=== PATIENT | female | born 1950 | race Caucasian/White ===

== ENCOUNTER 2025-03-09 17:41 | Inpatient (IN) | payer MEDICARE, SELFPAY ==
--- OUTSIDE RECORDS SUMMARY | 2025-03-07 15:40 | XMS_ITS | Encounter Summary ---
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 Designer Name Role Phone Verenice Smith MD Primary Care Provider [phone] Reason for Visit * Reason Comments Altered Mental Status * Auth/Cert (Routine) Specialty Diagnoses / Procedures Referred By Ford t Referred To Contact Diagnoses altered mental status Referral ID Status Reason Start Date Expiration Date Visits Re quested Visits Authorized [id number] [phone] Encounter Details Date Type Department Care Team (Latest Contact Info) Description 03/07/2025 3:40 PM EDT - 03/09/2025 4:41 PM EDT Hospital Encounter [facility] Emergency Department [address] [place] [phone] Tori France DO [address] [place] [address] [phone] Cm Gonzalez MD [address] [place] [address] [phone] Tacho Stout MD [address] [place] [address] [phone] Jose Francisco Worthington MD [address] [place] [address] [phone] Gisela Lozano MD [address] [place] [phone] Discharge Disposition: Psychiatric Hospital (INPT Psych facility/unit) (65) Social History Tobacco Use Types Packs/Day Years Used Date Smoking Tobacco: Never Assessed Comments No Sex and Gender Information Value Date Recorded Sex Assigned at Female 03/07/2025 5:21 PM EDT Legal Sex Female 3:38 PM EDT Gender Identity Not on file Sexual Orientation Not on file documented as of this encounter Last Filed Vital Signs Vital Sign Reading Time Taken Comments Blood Pressure 160/80 03/09/2025 10:24 AM EDT Pulse 69 03/09/2025 10:24 AM EDT Temperature 36.6 C (97.9 F) 03/09/2025 10:24 AM EDT Respiratory Rate 18 03/09/2025 10:24 AM EDT Oxygen Saturation 96% 03/09/2025 10:24 AM EDT Inhaled Oxygen Concentration - - Weight 63.5 kg (140 lb) 03/07/2025 3:43 PM EDT Height 160 cm (5' 3 ) 03/07/2025 3:43 PM EDT Body Mass Index 24.8 03/07/2025 3:43 PM EDT documented in this encounter Medications at Time of Discharge amLODIPine (NORVASC) 5 mg tablet Take 5 mg by mouth once a day. busPIRone (BUSPAR) 15 mg tablet Take 30 mg by mouth 2 times a day. colestipoL (COLESTID) 1 gram tablet Take 1 g by mouth once a day. dicyclomine (BENTYL) 20 mg tablet Take 20 mg by mouth 2 times a day. omeprazole (PriLOSEC) 20 mg capsule Take 20 mg by mouth once a day. propranoloL (INDERAL) 60 mg tablet Take 60 mg by mouth once a day. risperiDONE (RisperDAL) 0.5 mg tablet Take 0.5 mg by mouth every 12 hours. documented as of this encounter Progress Notes * Tacho Stout MD - 03/08/2025 7:28 AM EDT ED Observation Note Service Date: 03/08/2025 Brief HPI and ED Course Please see the initial ED HPI for further details. Briefly, patient is a 74 y.o. female who presented to the Emergency Department for confusion in the setting of underlying dementia. Patient was evaluated by primary team, medically cleared, placed in ED observation for capacity evaluation by psychiatry and likely subsequent case management assessment. Patient was monitored in the ED observation unit overnight. There were no significant events. On evaluation this morning, patient is resting comfortably, denies acute concerns. Patient reports that she suffers from chronic abdominal pain, for which she has been following with gastroenterology, no acute change. No fevers or chills. No chest pain or shortness of breath. No additional acute concerns. Relevant review of systems as noted in HPI Physical Examination Vital sign: BP (!) 172/78 (BP Location: Right arm, Patient Position: Sitting) Pulse 73 Temp 36.8 ??C (98.3 ??F) (Oral) Resp 16 Ht 1.6 m (5' 3 ) Wt 63.5 kg (140 lb) SpO2 96% BMI 24.80 kg/m?? Constitutional: In no acute distress HEENT: Normocephalic, atraumatic, Extraocular muscles intact Resp/Chest: Normal work of breathing Cardiovascular: Warm and well-perfused Abd: Nondistended Musculoskeletal: No deformity or edema Skin: Warm and dry Neuro: Alert and interactive. Moving all extremities. Psych: Calm and cooperative Medical Decision Making: Patient in observation for confusion, plan for psychiatry/case management evaluation for possible placement. Reviewed patient's labs and ED course. Labs reviewed and reassuring. Overall presentation most consistent with progressive dementia. Low suspicion for metabolic derangement or primary HANDBAG STITCHER process. Added on TSH and will await urinalysis results. Final disposition pending psychiatry recommendations. TSH within normal limits. Urinalysis less consistent with UTI. Psychiatry recommending addition of CT head. Patient did require olanzapine ODT while in the ED due to increasing agitation/confusion. CT head with no acute process. At this time, patient continues to be medically cleared. Updated psychiatry, who is recommending jas-psych bed search. Signed out to oncoming provider at change of shift in stable condition. ED Course as of 03/08/25 1616 WedMar 07, 2025 2314 74 Y O F brought in for confusion by level vial grinder. Was dricing from [employer] [SV] [facility] Mar 08, 2025 1252 Patient noted to be somewhat agitated, ordered for olanzapine ODT [DS] [address] head [DS] 1354 Discussed with psychiatry, who is recommending patient does not have decisional capacity, planfor inpatient [facility] psych placement following head CT [DS] 1515 [facility] psych bed search [SV] 1524 CT Head WO Contrast IMPRESSION: 1. No acute intracranial abnormality. 2. Volume loss. 3. Opacification of left sphenoid sinus, probably chronic inflammatory in etiology. [DS] ED Course User Index [DS] Tacho Stout MD [SV] Tori France DO If discharged, discharge day management greater than 30 minutes? Yes documented in this encounter Miscellaneous Notes * ED Continuation of Care - Jose Francisco Worthington MD - 03/09/2025 12:43 AM EDT ED Continuation of Care 03/09/25 12:43 AM Sign out from Dr. Tori France, Assessment and Plan: Noted to be agitated at around 12:45 AM, not responding to verbal redirection,trying to walk out of the department. Quite confused, does not acknowledge that she is in the hospital. Unable to redirect verbally, and disrupting the operations of the emergency department. Given IM olanzapine for patient and staff safety. Critical Care: Critical care time (minutes): 33 Critical care time exclusive of teaching time, separately billable procedures, and treating other patients Patient critically ill with the following condition(s): Agitation requiring IM medications Critical care was time spent personally by me on the following activities: Development of treatmentplan, discussions with consultants, discussions with other provider, documenting the case, medical decision making, obtaining history from patient or surrogate, ordering/performing treatments/interventions, ordering and review of lab/imaging studies, pulse oximetry, re-evaluation of patient's condition and review of old charts Date of Service: 03/09/2025 12:44 AM ED Course as of 03/09/25 004WedMar 07, 2025 2314 74 Y O F brought in for confusion by level vial grinder. Was dricing from [facility] [SV] [facility] Mar 08, 2025 1252 Patient noted to be somewhat agitated, ordered for olanzapine ODT [DS] [address] head [DS] 1354 Discussed with psychiatry, who is recommending patient does not have decisional capacity, planfor inpatient [facility] psych placement following head CT [DS] 1515 [facility] bed search [SV] 1524 CT Head WO Contrast IMPRESSION: 1. No acute intracranial abnormality. 2. Volume loss. 3. Opacification of left sphenoid sinus, probably chronic inflammatory in etiology. [DS] ED Course User Index [DS] Tacho Stout MD [SV] Tori France DO Nacny Mendozaou : 1950 CSN: [id number] documented in this encounter Plan of Treatment Not on file documented as of this encounter Procedures * Due to [place] [employer] [place] law, this organization might not be sharing negative HIV tests. Procedure Name Priority Date/Time Associated Diagnosis Comments CT HEAD WO CONTRAST STAT 03/08/2025 2 :28 PM EDT URINALYSIS W/REFLEX TO MICROSCOPIC & CULTURE Routine 03/08/2025 9:56 AM EDT MICROSCOPIC URINALYSIS ONLY Routine 03/08/2025 9:56 AM EDT UA/CULTURE REFLEX Routine 03/08/2025 9:5 6 AM EDT THYROID CASCDE - HH STAT Add-on 03/07/2025 8 :46 PM EDT BASIC METABOLIC PANEL STAT 03/07/2025 8:46 PM EDT CBC AUTO DIFFERENTIAL STAT 03/07/2025 6:51 PM EDT documented in this encounter Results * Due to [place] [employer] [place] law, this organization might not be sharing negative HIV tests. * CT Head WO Contrast (03/08/2025 2:28 PM EDT) Anatomical Region Laterality Modality Head and Neck Computed Tomogra phy 03/08/2025 2:36 PM EDT Impressions 03/08/2025 2:39 PM EDT 1. No acute intracranial abnormality. 2. Volume loss. 3. Opacification of left sphenoid sinus, probably chronic inflammatory in etiology. If this radiology report contains a blank impression section, it is an incomplete radiology report. Please contact the interpreting radiologist or applicable radiology division as soon as possible to obtain the completed interpretation. Workstation ID: [id number] Up-to-date CT equipment and radiation dose reduction techniques were employed. CTDIvol: 41.8 mGy. DLP: 710 mGy-cm. Narrative 03/08/2025 2:39 PM EDT EXAMINATION: CT of head without contrast TECHNIQUE: CT of the head performed without intravenous contrast. Multiplanar reformats created. CLINICAL INFORMATION: Mental status change, unknown cause FINDINGS: No acute intracranial hemorrhage, significant mass effect or midline shift seen. No evidence for acute large vascular territorial infarction. The brain parenchyma shows normal attenuation characteristics. Evidence of mild volume loss. No hydrocephalus. No acute bony abnormality. Opacification of left sphenoid sinus, most likely chronic inflammatory in etiology. Resulting Agency Comment [id number] Procedure Note Brennon Concepcion MD - 03/08/2025 EXAMINATION: CT of head without contrast TECHNIQUE: CT of the head performed without intravenous contrast. Multiplanarreformats created. CLINICAL INFORMATION: Mental status change, unknown cause FINDINGS: No acute intracranial hemorrhage, significant mass effect or midline shiftseen. No evidence for acute large vascular territorial infarction. The brain parenchyma shows normal attenuation characteristics. Evidenceof mild volume loss. No hydrocephalus. No acute bony abnormality. Opacification of left sphenoid sinus, most likely chronic inflammatory inetiology. IMPRESSION: 1. No acute intracranial abnormality. 2. Volume loss. 3. Opacification of left sphenoid sinus, probably chronic inflammatory inetiology. If this radiology report contains a blank impression section, it is anincomplete radiology report. Please contact the interpreting radiologistor applicable radiology division as soon as possible to obtain thecompleted interpretation. Workstation ID: [id number] Up-to-date CT equipment and radiation dose reduction techniques wereemployed. CTDIvol: 41.8 mGy. DLP: 710 mGy-cm. us Tacho Stout MD IMG CT PROCEDURES Final Result * (ABNORMAL) Microscopic Urinalysis Only (03/08/2025 9:56 AM EDT) RBC, Urine 0-2 None Seen, 0-2 /HPF 03/08/2025 10:39 AM EDT [facility] WBC, Urine 0-2 None Seen, 0-2 /HPF 03/08/2025 10:39 AM EDT [facility] Squamous Epithelial Cells, Urine None Seen /HPF 03/08/2025 10:39 AM EDT [facility] Bacteria, Urine Occasional (A) None Seen /HPF 03/08/2025 10:39 AM EDT [facility] Urine Urine specimen collection, clean catch / Unknown Non-Blood Collection / Unknown 03/08/2025 9:56 AM EDT 03/08/2025 10:13 AM EDT Tori France DO LAB URINE ORDERABLES Final Result [facility] [address] [place] [address] [address] [place] [address], [place] [phone] * (ABNORMAL) Urinalysis W/Reflex to Microscopic & Culture (03/08/2025 9:56 AM EDT) Color, Urine Yellow Yellow 03/08/2025 10:13 AM EDT [facility] Clarity, Urine Clear Clear 03/08/2025 10:13 AM EDT [facility] Specific [place], Urine 1.015 1.005 - 1.030 03/08/2025 10:13 AM EDT [facility] pH, Urine 6.5 5.0 - 8.0 03/08/2025 10:13 AM EDT [facility] Protein, Urine Negative Negative mg/dL 03/08/2025 10:13 AM EDT [facility] Glucose, Urine Negative Negative mg/dL 03/08/2025 10:13 AM EDT [facility] Ketones, Urine Negative Negative mg/dL 03/08/2025 10:13 AM EDT [facility] Bilirubin, Urine Negative Negative 03/08/2025 10:13 AM EDT [facility] Blood, Urine Small(A) Negative 03/08/2025 10:13 AM EDT [facility] Nitrite, Urine Negative Negative 03/08/2025 10:13 AM EDT [facility] Urobilinogen, Urine 0.2 0.2 - 1.0 E.U./dL 03/08/2025 10:13 AM EDT [facility] Leukocyte Esterase, Urine Trace(A) Negative 03/08/2025 10:13 AM EDT [facility] Urine Urine specimen collection, clean catch / Unknown Non-Blood Collection / Unknown 03/08/2025 9:56 AM EDT 03/08/2025 9:59 AM EDT Narrative [facility] - 03/08/2025 10:13 AM EDT Some urinalysis results will not meet the criteria for reflex urine culture although certain urine values may be abnormal. Additional testing can be ordered by the provider if clinically warranted. Tori Vyscaitie DO LAB URINE ORDERABLES Final Result [facility] [address] [place] [address], * Thyroid [place] [facility] [place] only (03/07/2025 8:46 PM EDT) TSH 3.930 0.270 - 4.200 uIU/mL 03/08/2025 11:43 AM EDT [facility] Comment:EUTHYROID; CLINICAL CORRELATION IS RECOMMENDED Blood Structure of peripheral vein / Unknown Venipuncture / Unknown 03/07/2025 8:46 PM EDT 03/07/2025 8:48 PM EDT us Tacho Stout MD LAB BLOOD ORDERABLES Final Resu lt [facility] [address] [place] [address], [place] [phone] * (ABNORMAL) Basic Metabolic Panel (03/07/2025 8:46 PM EDT) NA 138 136 - 145 mmol/L 03/07/2025 9:09 PM EDT [facility] K 3.8 3.5 - 5.1 mmol/L 03/07/2025 9:09 PM EDT [facility] Cl 105 98 - 109 mmol/L 03/07/2025 9:09 PM EDT [facility] CO2 21(L) 22 - 32 mmol/L 03/07/2025 9:09 PM EDT [facility] BUN 17 8 - 23 mg/dL 03/07/2025 9:09 PM EDT [facility] Creatinine 1.08 0.50 - 1.12 mg/dL 03/07/2025 9:09 PM EDT [facility] Glucose 119(H) 60 - 99 mg/dL 03/07/2025 9:09 PM EDT [facility] Calcium 9.5 8.4 - 10.4 mg/dL 03/07/2025 9:09 PM EDT [facility] Anion Gap 16 >=0 03/07/2025 9:09 PM EDT [facility] eGFR 54(L) >=60 mL/min/1. 73m2 03/07/2025 9:09 PM EDT [facility] Comment:The estimated glomer ular filtration rate (eGFR) is calculated using a new formula developed by the NKF-ASN task force to eliminate race-based correction factors. The new formula uses serum/plasma creatinine, age, and gender to determine eGFR. A value below 60mls/min might indicate kidney disease and will be flagged. For additional information, see Mckeon et al, Am J Kidney Dis. 2021;79(2):268- 288, A Unifying Approach for GFR estimation: Recommendations of the NKF-ASN Task Force on Reassessing the Inclusion of Race in Diagnosing Kidney Disease . Blood Structure of peripheral vein / Unknown Venipuncture / Unknown 03/07/2025 8:46 PM EDT 03/07/2025 8:48 PM EDT us Tori Vysetty DO LAB BLOOD ORDERABLES Final Result [facility] [address] [place] [address], [place] [phone] * CBC Auto Differential (03/07/2025 6:51 PM EDT) WBC 7.0 4.8 - 10.8 10*3/uL 03/07/2025 6:58 PM EDT [facility] RBC 4.78 4.20 - 5.40 10*6/uL 03/07/2025 6:58 PM EDT [facility] Hemoglobin 14.2 11.7 - 15.5 g/dL 03/07/2025 6:58 PM EDT [facility] Hematocrit 39.6 35.7 - 45.8 % 03/07/2025 6:58 PM EDT [facility] MCV 82.8 81.0 - 99.0 fL 03/07/2025 6:58 PM EDT [facility] MCH 29.7 26.0 - 34.0 pg 03/07/2025 6:58 PM EDT [facility] MCHC 35.9 31.0 - 36.0 g/dL 03/07/2025 6:58 PM EDT [facility] RDW 12.8 12.0 - 15.0 % 03/07/2025 6:58 PM EDT [facility] RDW Standard Deviation 38.9 36.4 - 46.3 fL 03/07/2025 6:58 PM EDT [facility] Platelets 193 140 - 440 10*3/uL 03/07/2025 6:58 PM EDT [facility] MPV 10.2 9.4 - 12.3 fL 03/07/2025 6:58 PM EDT [facility] Neutrophil % 55.6 50.0 - 75.0 % 03/07/2025 6:58 PM EDT [facility] Immature Grans % 0.3 0.0 - 0.9 % 03/07/2025 6:58 PM EDT [facility] Lymphocyte % 32.1 20.0 - 44.0 % 03/07/2025 6:58 PM EDT [facility] Monocyte % 7.0 0.0 - 14.0 % 03/07/2025 6:58 PM EDT [facility] Eosinophil % 3.6 0.0 - 5.0 % 03/07/2025 6:58 PM EDT [facility] Basophil % 1.4 0.0 - 2.0 % 03/07/2025 6:58 PM EDT [facility] Neutrophil # 3.89 1.80 - 7.70 10*3/uL 03/07/2025 6:58 PM EDT [facility] Immature Grans # <0.03 0.00 - 0.03 10*3/uL 03/07/2025 6:58 PM EDT [facility] Lymphocyte # 2.30 1.00 - 4.75 10*3/uL 03/07/2025 6:58 PM EDT [facility] Monocyte # 0.50 0.00 - 0.60 10*3/uL 03/07/2025 6:58 PM EDT [facility] Eosinophil # 0.30 0.00 - 0.80 10*3/uL 03/07/2025 6:58 PM EDT [facility] Basophil # 0.10 0.00 - 0.20 10*3/uL 03/07/2025 6:58 PM EDT [facility] nRBC % 0.0 0 - 0 /100 WBCs 03/07/2025 6:58 PM EDT [facility] nRBC # <0.01 0.00 - 0.13 10*3/uL 03/07/2025 6:58 PM EDT [facility] Blood Structure of peripheral vein / Unknown Venipuncture / Unknown 03/07/2025 6:51 PM EDT 03/07/2025 6:54 PM EDT Tori Vysetty DO LAB BLOOD ORDERABLES Final Result [facility] [address] [place] [address], [place] [phone] documented in this encounter Visit Diagnoses Not on filedocumented in this encounter Administered Medications Active Administered Medications - up to 3 most recent administrations Medication Order MAR Action Action Date Dose Rate Site amLODIPine (NORVASC) tablet 5 mg 5 mg, oral, Daily, First dose on Wed03/08/25 at 0900, Until Discontinued, Hold for SBP less than 100 mmHg. Given 03/09/2025 9:53 AM EDT 5 mg Given 03/08/2025 10:06 AM EDT 5 mg busPIRone (BUSPAR) tablet 15 mg 15 mg, oral, 2 times daily, First dose on Wed03/08/25 at 0900, Until Discontinued Given 03/09/2025 9:53 AM EDT 15 mg Given 03/08/2025 5:14 PM EDT 15 mg Given 03/08/2025 10:06 AM EDT 15 mg risperiDONE (RisperDAL M-TAB) disintegrating tablet 0.5 mg 0.5 mg, oral, Nightly, First dose on Wed03/08/25 at 0000, Until Discontinued Given 03/08/2025 10:27 PM EDT 0.5 mg Given 03/08/2025 1:01 AM EDT 0.5 mg Inactive Administered Medications - up to 3 most recent administrations Medication Order MAR Action Action Date Dose Rate Site OLANZapine (ZyPREXA Zydis) disintegrating tablet 5 mg 5 mg, oral, Once, On Teresa 03/08/25 at 1300, 1 dose Given 03/08/2025 12:59 PM EDT 5 mg OLANZapine (ZyPREXA) 10 mg injection Pyxis Override Pull Starting on Wed03/09/25 at 0043, 1 dose, Until Wed03/09/25 at 0045, Created by cabinet override Reconstitute with 2.1 mL of sterile water for injection. Concentration = 5 mg/mL. Given 03/09/2025 12:45 AM EDT 5 mg Left Deltoid OLANZapine (ZyPREXA) injection 5 mg 5 mg, intramuscular, Once, On Wed03/07/25 at 1630, 1 dose, Reconstitute with 2.1 mL of sterile water for injection. Concentration = 5 mg/mL. Given 03/07/2025 4:26 PM EDT 5 mg Right Deltoid documented in this encounter Active and Recently Administered Medications Times are shown in EDT. Scheduled Medication Order 03/07/2025 03/08/2025 03/09/2025 amLODIPine (NORVASC) tablet 5 mg 5 mg, oral, Daily, First dose on Wed03/08/25 at 0900, Until Discontinued, Hold for SBP less than 100 mmHg. 1006 (Given - Provider: Collette Yusuf RN) 0953 (Given - Provider: Sandro Rosales RN) busPIRone (BUSPAR) tablet 15 mg 15 mg, oral, 2 times daily, First dose on Wed03/08/25 at 0900, Until Discontinued 1006 (Given - Provider: Collette Yusuf RN)1714 (Given - Provider: Barbie Mills RN) 0953 (Given - Provider: Sandro Rosales RN)1700 (Due) OLANZapine (ZyPREXA Zydis) disintegrating tablet 5 mg (COMPLETED) 5 mg, oral, Once, On Wed03/08/25 at 1300, 1 dose 1259 (Given - Provider: Collette Yusuf RN) OLANZapine (ZyPREXA) injection 5 mg (COMPLETED) 5 mg, intramuscular, Once, On Wed03/07/25 at 1630, 1 dose, Reconstitute with 2.1 mL of sterile water for injection. Concentration = 5 mg/mL. 1626 (Given - Provider: Barbie Sahu RN) OLANZapine (ZyPREXA) injection 5 mg 5 mg, intramuscular, Once, On Wed03/09/25 at 0045, 1 dose, Reconstitute with 2.1 mL of Sterile Water for injection. Concentration = 5 mg/mL. For IV administration: may be given IV push at a rate of 5 mg/minute. 0045 (Not Given - Provider: Paulette Moreno RN - Reason: See Provider Order) risperiDONE (RisperDAL M-TAB) disintegrating tablet 0.5 mg 0.5 mg, oral, Nightly, First dose on Teresa 03/08/25 at 0000, Until Discontinued 0101 (Given - Provider: Elder Thorne RN)2227 (Given - Provider: Paulette Moreno RN) 2100 (Due) No Frequency Medication Order 03/07/2025 03/08/2025 03/09/2025 OLANZapine (ZyPREXA) 10 mg injection Pyxis Override Pull (COMPLETED) Starting on Wed03/09/25 at 0043, 1 dose, Until Wed03/09/25 at 0045, Created by cabinet override Reconstitute with 2.1 mL of sterile water for injection. Concentration = 5 mg/mL. 0045 (Given - Provid er: Paulette Moreno RN - Comment: given as overide for patient behavior trying to leave) documented in this encounter Care Teams Solar [employer] Consultant And Designer Relationship Specialty Start Date End Date Verenice Smith MD [address] [place] [address] PCP - General Geriatric Medicine 03/07/25 documented as of this encounter
--- NOTE | 2025-03-09 | ECG_ITS ---
Test Reason : tachycardia Blood Pressure : */* mmHG Vent. Rate : 103 BPM Atrial Rate : 103 BPM P-R Int : 174 ms QRS Dur : 72 ms QT Int : 332 ms P-R-T Axes : 68 28 64 degrees QTcB Int : 434 ms Sinus tachycardia with frequent Premature ventricular complexes Possible Left atrial enlargement Septal infarct , age undetermined Abnormal ECG No previous ECGs available Referred By: Kianna Walls Electronically Signed By: Xavier Morton
--- NOTE | ~2025-03-09 | XR_ITS ---
EXAMINATION: XR CHEST CLINICAL INFORMATION: sob cough COMPARISON: 04/04/2025 TECHNIQUE: PA view of the chest was obtained. FINDINGS: The cardiac, hilar, and mediastinal contours are normal. The lungs are clear bilaterally. No pneumothorax or effusion. No focal osseous or soft tissue abnormality. XR/XR chest 1V IMPRESSION: No active pulmonary disease. Electronically signed by: Shadi Gu MD 04/10/2025 11:00 AM EDT
--- NOTE | ~2025-03-09 | XR_ITS ---
CLINICAL HISTORY: cough, crackles in chest 1 view chest x-ray Comparison: None provided Findings: Mild left lower lobe atelectasis. No significant pleural effusion or pneumothorax. Normal size heart. No acute fracture. IMPRESSION: Mild left lower lobe atelectasis. This document has been electronically signed by: Carloz Rosa MD on 04/04/2025 19:10:05
--- OUTSIDE RECORDS SUMMARY | 2025-03-09 17:51 | XMS_ITS | Encounter Summary ---
Author Organization [facility] Address [address] [place] [address] Care Team Providers Care Data Network Architect Name Role Phone Verenice Smith MD Primary Care Provider [phone] Kristian Evans MD Unavailable [phone] Tacho Posada MD Unavailable [phone] Verenice Smith MD Unavailable [phone] Reason for Referral * Physical Therapy (Routine) - Closed Specialty Diagnoses / Procedures Referred By Ford jamison Referred To Contact Physical Therapy Diagnoses Benign paroxysmal positional vertigo due to bilateral vestibular disorder Verenice Smith MD [address] [place] [address] Phone: tel: fax: Referral ID Status Reason Start Date Expiration Date V isits Requested Visits Authorized [id number] Closed Specialty Services Required 10/01/2021 03/30/2022 1 1 Encounter Details Date Type Department Care Team (Late st Contact Info) Description 10/01/2021 Orders Only [facility] Department of Geriatrics [address] [place] [address] Verenice Smith MD [address] [place] [address] Benign paroxysmal positional vertigo due to bilateral vestibular disorder (Primary Dx) Social History Tobacco Use Types Packs/Day Years Used Date Smoking Tobacco: Former Smokeless Tobacco: Never Alcohol Use Standard Drinks/Week Comments Not Currently 0 (1 standard drink = 0.6 oz pur e alcohol) PHQ-2 Answer Date Recorded PHQ-2 Score 0 06/27/2021 Comments Unknown Sex and Gender Information Value Date Recorded Sex Assigned at Female 10/17/2020 11:25 AM EST Legal Sex Female 10:12 AM EST Gender Identity Female 10/17/2020 11:24 AM EST Sexual Orientation Straight 10/17/2020 11 :24 AM EST documented as of this encounter Plan of Treatment Upcoming Encounters Date Type Department Care Team (Late st Contact Info) Description 03/19/2025 3:30 PM EDT Office Visit [facility] Department of Geriatrics [address] [place] [address] [address] [place] [address] Verenice Smith MD [address] [place] [address] Scheduled Referrals Name Type Priority Associated Diagnoses Order Schedule Ambulatory referral to Physical Therapy Outpatient Referral Routine Benign paroxysmal positional vertigo due to bilateral vestibular disorder Ordered: 10/01/2021 documented as of this encounter Visit Diagnoses Diagnosis Benign paroxysmal positional vertigo due to bilateral vestibular disorder- Primary documented in this encounter Additional Health Concerns Infection Onset Date Last Indicated Resolved Time (Rule out) C. difficile 07/14/2023 07/14/2023 12/0 08/2022 10:08 PM EST documented as of this encounter Care Teams Data Network Architect Relationship Specialty Start Date End Date Verenice Smith MD [address] [place] [address] PCP - General Geriatric Medicine 07/10/20 Verenice Smith MD [address] [place] [id number] PCP - Insurance Payer PCP 06/30/23 Kristian Evans MD [address] [place] [address] [place] [address] Urogynecology 06/27/21 Tacho Posada MD [address] [place] [id number] Otolaryngology 06/27/21 documented as of this encounter
--- OUTSIDE RECORDS SUMMARY | 2025-03-09 17:52 | XMS_ITS | Clinical Summary ---
Author Organization [facility] Address [address] [place] [address] Care Team Providers Care Air Traffic Instructor Name Role Phone Verenice Smith MD Primary Care Provider [phone] Karl Lowe MD Unavailable [phone] Allergies Active Allergy Reactions Criticality Noted Date Comments Salicylic Acid-Sulfur Rash/Dermatitis Low 5 Medications sodium-potassium -magnesium sulfates (Suprep Bowel Prep Kit) 17.5-3.13-1.6 GM/177ML Solution solutionIndicati ons:Gastroesopha geal reflux disease, unspecified whether esophagitis present,Generali zed abdominal pain,Change in bowel habits Follow directions provided by physician's office. 354 mL 5 Active amLODIPine (NORVASC) 5 MG tablet Take 5 mg by mouth daily. Active busPIRone (BUSPAR) 30 MG tablet Take 10 mg by mouth 2 (two) times a day. Active Calcium Carb-Cholecalcif alpa (CALCIUM CARBONATE-VITAMI N D3 PO) Take by mouth. Activ e dicyclomine (BENTYL) 20 MG tablet Take 20 mg by mouth 2 times a day. Active meclizine (ANTIVERT) 25 MG tablet Take 25 mg by mouth 3 (three) times a day as needed for dizziness. Active cyanocobalamin (VITAMIN B-12) 250 MCG tablet Take 250 mcg by mouth daily. Active mirabegron (MYRBETRIQ) 25 mg ER tablet Take 25 mg by mouth daily. Active OMEprazole (PriLOSEC) 20 MG capsule Take 20 mg by mouth every morning before breakfast. Active ondansetron (ZOFRAN) 4 MG tablet Take 4 mg by mouth 3 times daily (every 8 hours) as needed for nausea or vomiting. Active propranolol (INDERAL) 60 MG tablet Take 60 mg by mouth 3 (three) times a day. Active QUEtiapine (SEROquel) 25 MG tablet Take 25 mg by mouth nightly. Active traZODone (DESYREL) 100 MG tablet Take 100 mg by mouth nightly. Active Active Problems No known active problems Encounters Date Type Department Care Team Description 03/08/2025 Telephone [facility] [address] [place] [address] Shelly Zeng 02/15/2025 Resource Coordination [facility] [address] [place] [address] Shelly Zeng 02/09/2025 12:30 PM EDT - 02/09/2025 1:15 PM EDT Surgery [facility] Endoscopy [address] [address] Karl Lowe MD COLONOSCOPY 02/09/2025 12:28 PM EDT Anesthesia Event [address] [phone] Mikel Zacarias CRNA 02/09/2025 11:23 AM EDT - 02/09/2025 11:59 PM EDT Hospital Encounter [address] [phone] Karl Lowe MD Discharge Disposition: Home or Self Care 02/09/2025 Scanned Document [facility] ENDOSCOPY [address] Karl Lowe MD 01/04/2025 Telephone [facility] [address] [place] [address] Aishwarya Shanks MA 12/18/2024 Transcribe Orders [facility] [address] [place] [address] Unknown Abdominal pain, chronic, right lower quadrant (Primary Dx) 12/14/2024 1:00 PM EDT Consult [facility] [address] [place] [address] Karl Lowe MD Gastroesophageal reflux disease, unspecified whether esophagitis present (Primary Dx); Generalized abdominal pain; Abdominal pain increased with position change; Change in bowel habits 12/14/2024 Orders Only [facility] [address] [place] [address] Karl Lowe MD from Last 3 Months Social History Tobacco Use Types Packs/Day Years Used Date Smoking Tobacco: Former Cigarettes 0.5 25 S tarted: 1970 Smokeless Tobacco: Never Tobacco Cessation:Counseling Given: Not Answered Alcohol Use Standard Drinks/Week Comments Not Currently 0 (1 standard drink = 0.6 oz pure alcohol) none in 30 years - goes to AA Comments Unknown Sex and Gender Information Value Date Recorded Sex Assigned at Not on file Legal Sex Female 5:23 PM EDT Gender Identity Not on file Sexual Orientation Not on file Last Filed Vital Signs Vital Sign Reading Time Taken Comments Blood Pressure 131/70 02/09/2025 1:46 PM EDT Pulse 62 02/09/2025 1:46 PM EDT Temperature 36.7 C (98 F) 02/09/2025 11:36 AM EDT Respiratory Rate 18 02/09/2025 1:46 PM EDT Oxygen Saturation 98% 02/09/2025 1:46 PM EDT Inhaled Oxygen Concentration - - Weight 85.7 kg (188 lb 14.4 oz) 025 11:36 AM EDT Height 161.5 cm (5' 3.58 ) 02/09/2025 1 1:36 AM EDT Body Mass Index 32.85 02/09/2025 11:36 AM EDT Plan of Treatment Health Maintenance Due Date Last Done Comments Hepatitis C Virus Screening 1950 DTaP/Tdap/Td Vaccines (1 - Tdap) 1969 Mammogram 1990 Pneumococcal Vaccines 50+ (1 of 1 - PCV) 2000 Zoster (Shingles) Vaccine (1 of 2) 2000 DXA Bone Density (Females,Ages 65 and older) 2015 COVID-19 Vaccine ( season) 2024 05/29/2024, 06/28/2023, 06/01/2022, Additional history exists Influenza Vaccine 03/16/2025 05/29/2024, , 05/16/2021, Additional history exists RSV Vaccine 60 years and older and Patients (1 - 1-dose 75+ series) 2025 Colonoscopy 02/10/2028 02/09/2025, 02/09/2025 Hepatitis B Vaccines Aged Out No long er eligible based on patient's age to complete this topic Goals Goal Patient Goal Type Associated Problems Recent Progress Patient-Stated? Author PT LTG 5 Physical Therapy Not on track( 022 12:19 PM EST) No Willem Roth, PT Note: Senior Living Goal: Improve Dynamic Visual Acuity by 1 line (2 or better) in 12 weeks ongoing PT LTG 1 Physical Therapy No Willem Roth, PT Note: Senior Living Goal: She will identify TREJO triggers in order to decrease TREJO frequency, intensity, or duration in 12 weeks Procedures Procedure Name Priority Date/Time Associated Diagnosis Comments HX GASTROENTEROLOGY COLONOSCOPY-SCAN 02/09/2025 12:43 PM EDT HX GASTROENTEROLOGY UPPER ENDOSCOPY-SCAN 02/09/2025 12:29 PM EDT ENDOSCOPY UPPER 02/09/2025 12:28 PM EDT Gastroesophageal reflux disease, unspecified whether esophagitis present Generalized abdominal pain Change in bowel habits COLONOSCOPY 02/09/2025 12:28 PM EDT Gastroesophageal reflux disease, unspecified whether esophagitis present Generalized abdominal pain Change in bowel habits PATHOLOGY REPORT 02/09/2025 12:0 0 AM EDT GIARDIA ANTIGEN, EIA, STOOL Routine 01/15/2025 8:54 AM EDT Gastroesophageal reflux disease, unspecified whether esophagitis present Generalized abdominal pain Change in bowel habits PANCREATIC ELASTASE-1, STOOL Routine 01/15/2025 8:54 AM EDT Gastroesophageal reflux disease, unspecified whether esophagitis present Generalized abdominal pain Change in bowel habits OVA AND PARASITES Routine 01/15/2025 8:5 4 AM EDT Gastroesophageal reflux disease, unspecified whether esophagitis present Generalized abdominal pain Change in bowel habits TSH REFLEX TO FREE T4 Routine 01/01/2025 10:38 AM EDT Gastroesophageal reflux disease, unspecified whether esophagitis present Generalized abdominal pain Change in bowel habits COMPREHENSIVE METABOLIC PANEL Routine 01/01/2025 10:38 AM EDT Gastroesophageal reflux disease, unspecified whether esophagitis present Generalized abdominal pain Change in bowel habits COMPLETE BLOOD COUNT, WITH DIFFERENTIAL Routine 01/01/2025 10:38 AM EDT Gastroesophageal reflux disease, unspecified whether esophagitis present Generalized abdominal pain Change in bowel habits from Last 3 Months Results * HX GASTROENTEROLOGY COLONOSCOPY-SCAN (02/09/2025 12:43 PM EDT) us Karl Lowe MD HX AMB PROCEDURES Final Res ult * HX GASTROENTEROLOGY UPPER ENDOSCOPY-SCAN (02/09/2025 12:29 PM EDT) us Karl Lowe MD HX AMB PROCEDURES Final Res ult * Pathology (02/09/2025 12:00 AM EDT) us Karl Lowe MD PATHOLOGY/CYTOLOGY ORDERABL ES Final Result * Giardia Antigen, EIA, Stool (01/15/2025 8:54 AM EDT) Giardia Ag, Stl SEE NOTE [facility] [employer] [facility] Comment: GIARDIA AG, EIA, STOOL Micro Number: [id number] Test Status: Final Specimen Source: Stool Specimen Quality: Adequate Giardia Result 1: Not Detected Reference Range: Not Detected NOTE: Due to intermittent shedding, one negative sample does not necessarily rule out the presence of a parasitic infection. 01/15/2025 8:54 AM EDT 01/15/2025 8:55 AM EDT Narrative [facility] - 01/27/2025 9:21 AM EDT SPLIT 01/01/2025 FROM [id number] Karl Lowe MD LAB AMB FLUID/STOOL ORDERAB LES Final Result Performing Organization Address City/[facility]/ZIP Co de Phone Number [facility] [address] [place] [phone] * Pancreatic Elastase-1, Stool (01/15/2025 8:54 AM EDT) Pancreatic Elastase-1, Stool 587 >200 mcg/g [facility], Comment: E-1 mcg/g feces Interpretation <100 Severe exocrine pancreatic insufficiency 100-200 Mild to moderate exocrine pancreatic insufficiency >200 Normal 01/15/2025 8:54 AM EDT 01/15/2025 8:55 AM EDT Narrative [facility] - 01/27/2025 9:21 AM EDT SPLIT 01/01/2025 FROM [id number] Karl Lowe MD LAB AMB FLUID/STOOL ORDERAB LES Final Result Performing Organization Address City/[facility]/ZIP Co de Phone Number [facility], [address] [place] [address] * Ova and Parasites (01/15/2025 8:54 AM EDT) Trichrome (1) SEE NOTE [facility] Comment: OVA AND PARASITES, CONC AND PERM SMEAR Micro Number: [id number] Test Status: Final Specimen Source: Stool Specimen Quality: Adequate CONCENTRATION 1: No ova or parasites seen TRICHROME 1: No ova or parasites seen Routine Ova and Parasite exam may not detect some parasites that occasionally cause diarrheal illness. Cryptosporidium Antigen and/or Cyclospora and Isospora Exam may be ordered to detect these parasites. One negative sample does not necessarily rule out the presence of a parasitic infection. For additional information, please refer to [email or web address]/faq/[email or web address] (This link is being provided for informational/ educational purposes only.) 01/15/2025 8:54 AM EDT 01/15/2025 8:55 AM EDT Narrative [facility] - 01/27/2025 9:21 AM EDT SPLIT 01/01/2025 FROM [id number] us Karl Lowe MD LAB AMB FLUID/STOOL ORDERAB LES Final Result Performing Organization Address [facility] Co de Phone Number [facility] [address] [place] [phone] * TSH Reflex Free T4 (01/01/2025 10:38 AM EDT) Pathologist [facility] TSH reflex Free T4 2.90 0.40 - 4.50 mIU/L [facility] Blood Blood specimen / Unknown 01/01/2025 10:38 AM EDT 01/01/2025 10:40 AM EDT [facility] - 01/01/2025 11:31 PM EDT FASTING:YES COLLECTION KIT GIVEN TO PATIENT. PATIENT ADVISED TO RETURN. FASTING: YES us Karl Lowe MD LAB BLOOD ORDERABLES Final Result Performing Organization Address [facility]/ZIP Co de Phone Number [facility] [address] [place] [phone] * Complete Blood Count, with Differential (01/01/2025 10:38 AM EDT) Pathologist [facility] White Blood Cell Count 5.1 3.8 - 10.8 Thousand/u L [facility] Red Blood Cell Count 4.33 3.80 - 5.10 Million/uL [facility] Hemoglobin 12.9 11.7 - 15.5 g/dL [facility] Hematocrit 38.8 35.0 - 45.0 % [facility] [employer] MCV 89.6 80.0 - 100.0 fL [facility] MCH 29.8 27.0 - 33.0 pg [facility] MCHC 33.2 32.0 - 36.0 g/dL [facility] Comment: For adults, a slight decrease in the calculated MCHC value (in the range of 30 to 32 g/dL) is most likely not clinically significant; however, it should be interpreted with caution in correlation with other red cell parameters and the patient's clinical condition. RDW 13.2 11.0 - 15.0 % [facility] [employer] Platelet Count 191 140 - 400 Thousand/u L [facility] MPV 10.5 7.5 - 12.5 fL [facility] Abs Neutrophils Auto 2,876 1,500 - 7,800 cells/uL [facility] Abs Lymphocytes Auto 1,571 850 - 3,900 cells/uL [facility] Abs Monocytes Auto 403 200 - 950 cells/uL [facility] Abs Eosinophils Auto 189 15 - 500 cells/uL [facility] Abs Basophils Auto 61 0 - 200 cells/uL [facility] Neutrophils Auto 56.4 % Que [facility] Lymphocytes Auto 30.8 % Que [facility] Monocytes Auto 7.9 % [facility] Eosinophils Auto 3.7 % Que [facility] Basophils Auto 1.2 % [facility] Blood Blood specimen / Unknown 01/01/2025 10:38 AM EDT 01/01/2025 10:40 AM EDT Narrative [facility] - 01/01/2025 11:31 PM EDT FASTING:YES COLLECTION KIT GIVEN TO PATIENT. PATIENT ADVISED TO RETURN. FASTING: YES Karl Lowe MD LAB BLOOD ORDERABLES Final Result [facility] [address] [place] [phone] * (ABNORMAL) Comprehensive Metabolic Panel (01/01/2025 10:38 AM EDT) Glucose 107(H) 65 - 99 mg/dL [facility] Comment: Fasting reference interval For someone without known diabetes, a glucose value between 100 and 125 mg/dL is consistent with prediabetes and should be confirmed with a follow-up test. Blood Urea Nitrogen (BUN) 15 7 - 25 mg/dL [facility] Creatinine 1.07(H) 0.60 - 1.00 mg/dL [facility] Creatinine w/ eGFR 55(L) > OR = 60 mL/min/1. 73m2 [facility] BUN/Creatinine Ratio 14 6 - 22 (calc) [facility] Sodium 137 135 - 146 mmol/L [facility] Potassium 4.3 3.5 - 5.3 mmol/L [facility] Chloride 106 98 - 110 mmol/L [facility] CO2 27 20 - 32 mmol/L [facility] Calcium 9.4 8.6 - 10.4 mg/dL [facility] Protein, Total 7.3 6.1 - 8.1 g/dL [facility] Albumin 3.9 3.6 - 5.1 g/dL [facility] Globulin 3.4 1.9 - 3.7 g/dL (calc) [facility] Albumin/Globulin Ratio 1.1 1.0 - 2.5 (calc) [facility] Bilirubin, Total 0.5 0.2 - 1.2 mg/dL [facility] Alkaline Phosphatase 61 37 - 153 U/L [facility] Aspartate Aminotrans (AST) 14 10 - 35 U/L [facility] Alanine Aminotrans (ALT) 9 6 - 29 U/L [facility] Blood Blood specimen / Unknown 01/01/2025 10:38 AM EDT 01/01/2025 10:40 AM EDT Narrative [facility] - 01/01/2025 11:31 PM EDT FASTING:YES COLLECTION KIT GIVEN TO PATIENT. PATIENT ADVISED TO RETURN. FASTING: YES Karl Lowe MD LAB BLOOD ORDERABLES Final Result [facility] [facility] [facility] [address] [place] [phone] from Last 3 Months Insurance Care Teams Air Traffic Instructor Relationship Specialty Start Date End Date Verenice Smith MD PCP - General General Medicine 04/17/21 Karl Lowe MD [address] [place] [address] Gastroenterology 02/21/25
--- OUTSIDE RECORDS SUMMARY | 2025-03-09 17:52 | XMS_ITS ---
Author Name [facility] Organization Unknown Results Test Name/Text Value Interpretation Date Range Source ABSOLUTE MONOCYTE CT. 0.73 10*3/uL Normal 12/12/2024 0.2 - 0.8 [facility] RBC DISTRIBUTION WIDTH 13.3 % Normal 12/12/2024 11.6 - 14.8 [facility] MCHC 33.8 g/dL Normal 12/12/2024 32 - 36 [facility] NEUTROPHIL % 51.4 % Normal 12/12/2024 40 - [address] [facility] [address] 3.49 10*3/uL Normal 12/12/2024 1.4 - 6.3 [facility] HEMATOCRIT 39.0 % Normal 12/12/2024 35 - [address] [facility] [address] 0.2 10*3/uL Normal 12/12/2024 0 - 0.3 [facility] MCV 88.4 fL Normal 12/12/2024 80 - 100 [facility] HEMOGLOBIN 13.2 g/dL Normal 12/12/2024 12 - 16 [facility] MPV 10.3 fL Normal 12/12/2024 9.4 - 12.4 [facility] LYMPHOCYTE % 33.7 % Normal 12/12/2024 20 - 50 [facility] MONOCYTE % 10.7 % Normal 12/12/2024 4 - 12 [facility] RED CELL COUNT 4.41 10*6/ L Normal 12/12/2024 3.8 - 5.[address] [facility] [address] 0.08 10*3/uL Normal 12/12/2024 0 - 0 .2 [facility] WHITE CELL COUNT 6.8 10*3/uL Normal 12/12/2024 3.6 - 11 [facility] EOSINOPHIL % 2.9 % Normal 12/12/2024 0 - 6 [facility] MCH 29.9 pg Normal 12/12/2024 26 - 34 [facility] ABSOLUTE IMMATURE GRANULOCYTES 0.01 10*3/uL Normal 12/12/2024 [facility] IMMATURE GRANULOCYTE % 0.1 % Normal 12/12/2024 0 - 0.6 [facility] BASOPHILS % 1.2 % Normal 12/12/2024 0 - 2 [facility] PLATELET COUNT 232.0 10*3/uL Normal 12/12/2024 150 - 440 [facility] AUTO NRBC % 0.0 % Normal 12/12/2024 0 - [address] [facility] [address] 2.29 10*3/uL Normal 12/12/2024 0.7 - 4.5 [facility] VITAMIN B12 302.0 pg/mL Normal 12/12/2024 [facility] POTASSIUM 4.1 mmol/L Normal 12/12/2024 3.6 - 5.1 [facility] AST (SGOT) 21.0 U/L Normal 12/12/2024 8 - 45 [facility] BICARBONATE 24.0 mmol/L Normal 12/12/2024 23 - 32 [facility] ALKALINE PHOSPHATASE 70.0 U/L Normal 12/12/2024 39 - 113 [facility] CHLORIDE 106.0 mmol/L Normal 12/12/2024 100 - 111 [facility] CREATININE 1.1 mg/dL Normal 12/12/2024 0.6 - 1.2 [facility] CALCIUM, TOTAL 9.1 mg/dL Normal 12/12/2024 8.4 - 10.2 [facility] SODIUM 138.0 mmol/L Normal 12/12/2024 137 - 144 [facility] GLOMERULAR FILTRATION RATE ML/MIN/1.73 SQ M.PREDICTED 53.0 mL/min/1.73m*2 Below low normal 12/12/2024 60 - [facility] UREA NITROGEN 12.0 mg/dL Normal 12/12/2024 8 - 24 [facility] ANION GAP 8.0 mmol/L Normal 12/12/2024 3 - 11 [facility] PROTEIN TOTAL 8.0 g/dL Normal 12/12/2024 6.2 - 8.1 [facility] ALBUMIN, AUTOMATED 4.1 g/dL Normal 12/12/2024 3.8 - 5.3 [facility] ALT (SGPT) 15.0 U/L Normal 12/12/2024 - [facility] BILIRUBIN, TOTAL 0.4 mg/dL Normal 12/12/2024 0.1 - 1.2 [facility] GLUCOSE 100.0 mg/dL Normal 12/12/2024 70 - 200 [facility] GYCOHEMOGLOBIN A1C 5.6 % Normal 12/12/2024 4.4 - 6.4 [facility] SHIGA TOXIN 2 NOT DETECTED Normal 07/22/2023 - [facility] SALMONELLA SPECIES NOT DETECTED Normal 07/22/2023 - [facility] YERSINIA ENTEROCOLITICA NOT DETECTED Normal 07/22/2023 - [facility] NOROVIRUS GI/GII NOT DETECTED Normal 07/22/2023 - [facility] CAMPYLOBACTER GROUP NOT DETECTED Normal 07/22/2023 - [facility] SHIGELLA SPECIES NOT DETECTED Normal 07/22/2023 - [facility] VIBRIO GROUP NOT DETECTED Normal 07/22/2023 - [facility] ROTAVIRUS A NOT DETECTED Normal 07/22/2023 - [facility] SHIGA TOXIN 1 NOT DETECTED Normal 07/22/2023 - [facility] CALPROTECTIN, FECAL 10.0 ug/g Normal 07/22/2023 - [facility] ABSOLUTE MONOCYTE CT. 0.4 10*3/uL Normal 07/15/2023 0.2 - 0.8 [facility] RBC DISTRIBUTION WIDTH 12.5 % Normal 07/15/2023 11.6 - 14.8 [facility] MONOCYTE % 8.2 % Normal 07/15/2023 4 - 12 [facility] MCHC 33.5 g/dL Normal 07/15/2023 32 - 36 [facility] LYMPHOCYTE % 29.5 % Normal 07/15/2023 20 - [address] [facility] [address] 0.1 10*3/uL Normal 07/15/2023 0 - 0. 2 [facility] WHITE CELL COUNT 5.4 10*3/uL Normal 07/15/2023 3.6 - 11 [facility] HEMATOCRIT 40.3 % Normal 07/15/2023 35 - [address] [facility] [address] 1.6 10*3/uL Normal 07/15/2023 0.7 - 4.5 [facility] MCH 30.8 pg Normal 07/15/2023 26 - 34 [facility] MCV 92.0 fL Normal 07/15/2023 80 - 100 [facility] PLATELET COUNT 247.0 10*3/uL Normal 07/15/2023 150 - 440 [facility] AUTO NRBC % 0.0 % Normal 07/15/2023 0 - 0 [facility] RED CELL COUNT 4.38 10*6/ L Normal 07/15/2023 3.8 - 5.2 [facility] HEMOGLOBIN 13.5 g/dL Normal 07/15/2023 12 - 16 [facility] NEUTROPHIL % 58.4 % Normal 07/15/2023 40 - 70 [facility] IMMATURE GRANULOCYTE % 0.2 % Normal 07/15/2023 0 - 0.6 [facility] BASOPHILS % 1.3 % Normal 07/15/2023 0 - [address] [facility] [address] 0.1 10*3/uL Normal 07/15/2023 0 - 0.[address] [facility] [address] 3.2 10*3/uL Normal 07/15/2023 1.4 - 6.3 [facility] EOSINOPHIL % 2.4 % Normal 07/15/2023 0 - 6 [facility] SODIUM 139.0 mmol/L Normal 07/15/2023 137 - 144 [facility] CALCIUM, TOTAL 9.2 mg/dL Normal 07/15/2023 8.4 - 10.2 [facility] GLUCOSE 127.0 mg/dL Normal 07/15/2023 70 - 200 [facility] BILIRUBIN, TOTAL 0.8 mg/dL Normal 07/15/2023 0.1 - 1.2 [facility] ALBUMIN, AUTOMATED 3.9 g/dL Normal 07/15/2023 3.8 - 5.3 [facility] CREATININE 1.0 mg/dL Normal 07/15/2023 0.6 - 1.2 [facility] ALKALINE PHOSPHATASE 60.0 U/L Normal 07/15/2023 39 - 113 [facility] ALT (SGPT) 9.0 U/L Normal 07/15/2023 8 - 39 [facility] BICARBONATE 24.0 mmol/L Normal 07/15/2023 23 - 32 [facility] GLOMERULAR FILTRATION RATE ML/MIN/1.73 SQ M.PREDICTED 60.0 mL/min/1.73m*2 Below low normal 07/15/2023 60 - [facility] AST (SGOT) 18.0 U/L Normal 07/15/2023 17 - 35 [facility] POTASSIUM 4.1 mmol/L Normal 07/15/2023 3.6 - 5.1 [facility] ANION GAP 8.0 mmol/L Normal 07/15/2023 3 - 11 [facility] CHLORIDE 107.0 mmol/L Normal 07/15/2023 100 - 111 [facility] UREA NITROGEN 15.0 mg/dL Normal 07/15/2023 8 - 24 [facility] PROTEIN TOTAL 7.1 g/dL Normal 07/15/2023 6.2 - 8.1 [facility] HOLD SPECIMEN Normal 07/15/2023 [facility] HOLD SPECIMEN LAV Normal 07/15/2023 [facility] LIPASE 35.0 U/L Normal 06/11/2023 8 - 51 [facility] AMYLASE 65.0 U/L Normal 06/11/2023 25 - 125 [facility] BILIRUBIN, DIRECT 0.3 mg/dL Normal 06/11/2023 0 - 0.5 [facility] BILIRUBIN, TOTAL 0.8 mg/dL Normal 06/11/2023 0.1 - 1.2 [facility] ALBUMIN, AUTOMATED 4.2 g/dL Normal 06/11/2023 3.8 - 5.3 [facility] ALKALINE PHOSPHATASE 65.0 U/L Normal 06/11/2023 39 - 113 [facility] ALT (SGPT) 14.0 U/L Normal 06/11/2023 8 - 39 [facility] PROTEIN TOTAL 7.7 g/dL Normal 06/11/2023 6.2 - 8.1 [facility] AST (SGOT) 18.0 U/L Normal 06/11/2023 17 - 35 [facility] C REACTIVE PROTEIN <0.4 mg/L Normal 06/11/2023 [facility] GYCOHEMOGLOBIN A1C 5.0 % Normal 06/11/2023 4.4 - 6.4 [facility] TROPONIN T 9.0 NG/L Normal 06/01/2023 - [facility] ALBUMIN 4.2 G/DL Normal 06/01/2023 3.5 - 5.2 [facility] CO2 25.0 MMOL/L Normal 06/01/2023 22 - 29 [facility] POTASSIUM 3.7 MMOL/L Normal 06/01/2023 3.5 - 4.9 [facility] BLOOD UREA NITROGEN 18.0 MG/DL Normal 06/01/2023 6 - 20 [facility] ALT < 5 Below low normal 06/01/2023 5 - 33 [facility] BUN/CREATININE RATIO 18.0 Normal 06/01/2023 [facility] BILIRUBIN, TOTAL 0.4 MG/DL Normal 06/01/2023 0.3 - 1.2 [facility] CREATININE 1.0 MG/DL Above high normal 06/01/2023 0.5 - 0.9 [facility] AST 17.0 U/L Normal 06/01/2023 6 - 32 [facility] TOTAL PROTEIN 7.8 G/DL Normal 06/01/2023 6.6 - 8.7 [facility] GLUCOSE, RANDOM 91.0 MG/DL Normal 06/01/2023 70 - 139 [facility] ALKALINE PHOSPHATASE 57.0 U/L Normal 06/01/2023 35 - 105 [facility] EST. GLOMERULAR FILTRATION 55.0 Normal 06/01/2023 [facility] ANION GAP 12.0 MMOL/L Normal 06/01/2023 - [facility] CHLORIDE 105.0 MMOL/L Normal 06/01/2023 98 - 107 [facility] SODIUM 138.0 MMOL/L Normal 06/01/2023 136 - 145 [facility] EST CREATININE CLEARANCE CALC 42.1 mL/min Normal 06/01/2023 [facility] CALCIUM 9.9 MG/DL Normal 06/01/2023 8.8 - 10.2 [facility] TSH SENSITIVE W/RFX TO FREE T4 3.04 mIU/L Normal 06/01/2023 0.27 - 4.2 [facility] LIPASE 47.0 U/L Normal 06/01/2023 13 - 60 [facility] TROPONIN T 8.0 NG/L Normal 06/01/2023 - [facility] ABSOLUTE EOS 0.1 K/UL Normal 06/01/2023 0 - 0.5 [facility] HEMATOCRIT 41.7 % Normal 06/01/2023 37 - 47 [facility] PLATELET COUNT 236.0 K/UL Normal 06/01/2023 150 - 450 [facility] EOSINOPHILS 1.1 % Normal 06/01/2023 [facility] ABSOLUTE NEUTROPHILS 4.9 K/UL Normal 06/01/2023 1.8 - 7. 8 [facility] MONOCYTES 7.4 % Normal 06/01/2023 [facility] IMMATURE GRANULOCYTE PERCENT 0.1 % Normal 06/01/2023 0 - 0.8 [facility] HEMOGLOBIN 13.9 GM/DL Normal 06/01/2023 12.5 - 16 [facility] MEAN PLATELET VOLUME 10.2 fL Normal 06/01/2023 8.8 - 13 .6 [facility] ABSOLUTE BASOS 0.1 K/UL Normal 06/01/2023 0 - 0.2 [facility] MCHC 33.3 GM/DL Normal 06/01/2023 32 - 36 [facility] ABSOLUTE LYMPHS 2.6 K/UL Normal 06/01/2023 1 - 4.8 [facility] NEUTROPHILS 59.2 % Normal 06/01/2023 [facility] WBC 8.2 K/UL Normal 06/01/2023 4 - 10.5 [facility] ABSOLUTE IMMATURE GRANULOCYTE 0.01 K/UL Normal 06/01/2023 0 - 0.08 [facility] RBC 4.59 M/UL Normal 06/01/2023 4.2 - 5.4 [facility] ABSOLUTE MONOS 0.6 K/UL Normal 06/01/2023 0 - 0.8 [facility] MCV 90.8 FL Normal 06/01/2023 78 - 100 [facility] RDW 13.1 % Normal 06/01/2023 11.5 - 14.5 [facility] MCH 30.3 PG Normal 06/01/2023 27 - 31 [facility] BASOPHILS 1.0 % Normal 06/01/2023 [facility] LYMPHOCYTES 31.2 % Normal 06/01/2023 [facility] WBC 0-5 Normal 05/14/2023 0 - 5 [facility] HYALINE CASTS 0-2 Normal 05/14/2023 - [facility] RBC 0-2 Normal 05/14/2023 - [facility] BACTERIA Neg Normal 05/14/2023 - [facility] PROTEIN NEGATIVE Normal 05/14/2023 - [facility] KETONE NEGATIVE Normal 05/14/2023 - [facility] LEUKOCYTE ESTERASE NEGATIVE Normal 05/14/2023 - [facility] GLUCOSE NEGATIVE Normal 05/14/2023 - [facility] URINE COLOR LT. YELLOW Normal 05/14/2023 [facility] pH 6.0 Normal 05/14/2023 5 - 9 [facility] SPECIFIC GRAVITY <= 1.005 Normal 05/14/2023 1 - 1.099 [facility] URINE CLARITY CLEAR Normal 05/14/2023 [facility] BLOOD SMALL Abnormal 05/14/2023 - [facility] NITRITE NEGATIVE Normal 05/14/2023 - [facility] SHIGA TOXIN 1 Not Detected Normal 05/14/2023 - [facility] SHIGA TOXIN 2 Not Detected Normal 05/14/2023 - [facility] VIBRIO GROUP Not Detected Normal 05/14/2023 - [facility] SALMONELLA SPECIES Not Detected Normal 05/14/2023 - [facility] SHIGELLA SPECIES Not Detected Normal 05/14/2023 - [facility] YERSINIA ENTEROCOLITICA Not Detected Normal 05/14/2023 - [facility] CAMPYLOBACTER GROUP Not Detected Normal 05/14/2023 - [facility] NOROVIRUS GI/GII Not Detected Normal 05/14/2023 - [facility] ROTAVIRUS A Not Detected Normal 05/14/2023 - [facility] C. DIFFICILE TOXIN, PCR Negative Normal 05/14/2023 - [facility] BILIRUBIN, TOTAL 0.8 MG/DL Normal 05/14/2023 0.3 - 1.2 [facility] POTASSIUM 3.6 MMOL/L Normal 05/14/2023 3.5 - 4.9 [facility] SODIUM 140.0 MMOL/L Normal 05/14/2023 136 - 145 [facility] AST 16.0 U/L Normal 05/14/2023 6 - 32 [facility] ANION GAP 14.0 MMOL/L Normal 05/14/2023 - [facility] CALCIUM 9.6 MG/DL Normal 05/14/2023 8.8 - 10.2 [facility] CHLORIDE 105.0 MMOL/L Normal 05/14/2023 98 - 107 [facility] CO2 25.0 MMOL/L Normal 05/14/2023 22 - 29 [facility] CREATININE 0.8 MG/DL Normal 05/14/2023 0.5 - 0.9 [facility] EST CREATININE CLEARANCE CALC 61.4 mL/min Normal 05/14/2023 [facility] GLUCOSE, RANDOM 101.0 MG/DL Normal 05/14/2023 70 - 139 [facility] BLOOD UREA NITROGEN 12.0 MG/DL Normal 05/14/2023 6 - 20 [facility] ALBUMIN 4.4 G/DL Normal 05/14/2023 3.5 - 5.2 [facility] TOTAL PROTEIN 7.8 G/DL Normal 05/14/2023 6.6 - 8.7 [facility] ALKALINE PHOSPHATASE 54.0 U/L Normal 05/14/2023 35 - 105 [facility] EST. GLOMERULAR FILTRATION > 60 Normal 05/14/2023 [facility] BUN/CREATININE RATIO 15.0 Normal 05/14/2023 [facility] ALT 7.0 U/L Normal 05/14/2023 5 - 33 [facility] LIPASE 100.0 U/L 05/14/2023 13 - 60 [facility] HEMATOCRIT 41.1 % Normal 05/14/2023 37 - 47 [facility] ABSOLUTE IMMATURE GRANULOCYTE 0.02 K/UL Normal 05/14/2023 0 - 0.08 [facility] MONOCYTES 7.9 % Normal 05/14/2023 [facility] ABSOLUTE MONOS 0.5 K/UL Normal 05/14/2023 0 - 0.8 [facility] NEUTROPHILS 62.2 % Normal 05/14/2023 [facility] ABSOLUTE NEUTROPHILS 3.6 K/UL Normal 05/14/2023 1.8 - 7. 8 [facility] EOSINOPHILS 1.5 % Normal 05/14/2023 [facility] ABSOLUTE LYMPHS 1.6 K/UL Normal 05/14/2023 1 - 4.8 [facility] MCH 30.9 PG Normal 05/14/2023 27 - 31 [facility] PLATELET COUNT 242.0 K/UL Normal 05/14/2023 150 - 450 [facility] RBC 4.56 M/UL Normal 05/14/2023 4.2 - 5.4 [facility] LYMPHOCYTES 27.1 % Normal 05/14/2023 [facility] BASOPHILS 1.0 % Normal 05/14/2023 [facility] MCV 90.1 FL Normal 05/14/2023 78 - 100 [facility] MCHC 34.3 GM/DL Normal 05/14/2023 32 - 36 [facility] ABSOLUTE BASOS 0.1 K/UL Normal 05/14/2023 0 - 0.2 [facility] HEMOGLOBIN 14.1 GM/DL Normal 05/14/2023 12.5 - 16 [facility] MEAN PLATELET VOLUME 9.9 fL Normal 05/14/2023 8.8 - 13 .6 [facility] IMMATURE GRANULOCYTE PERCENT 0.3 % Normal 05/14/2023 0 - 0.8 [facility] ABSOLUTE EOS 0.1 K/UL Normal 05/14/2023 0 - 0.5 [facility] WBC 5.8 K/UL Normal 05/14/2023 4 - 10.5 [facility] RDW 12.9 % Normal 05/14/2023 11.5 - 14.5 [facility] History of Medication Use Medication Directions Dispensed Refills Start Date End Date Stat RisperiDONE (RisperDAL) 0.5 mg tablet Take 1 tablet (0.5 mg total) by mouth in the morning and 1 tablet (0.5 mg total) before bedtime. 02/26/2025 active sodium chloride 0.9% (NS) infusion 150 mL/hr, Intravenous, Continuous, Starting on Wed02/09/25 at 1130, Pre-Procedure (GI), May adjust as needed. 02/09/2025 active RisperiDONE (RisperDAL) 0.25 mg tablet Take 1 tablet (0.25 mg total) by mouth in the morning and 1 tablet (0.25 mg total) before bedtime. 01/11/2025 active uhmaix-byxsdlgjl-jvb nesium sulfates (Suprep Bowel Prep Kit) 17.5-3.13-1.6 GM/177ML Solution solution Follow directions provided by physician's office. 12/14/2024 active QUEtiapine (SEROquel) 50 mg tablet Take 1 tablet (50 mg total) by mouth in the morning and 1 tablet (50 mg total) before bedtime. Take I tab (25mg) in the morning and 2 tabs (50mg) at night. 11/07/2024 active busPIRone (BUSPAR) 30 mg tablet Take 1 tablet (30 mg total) by mouth in the morning and 1 tablet (30 mg total) before bedtime. 11/02/2024 active QUEtiapine (SEROquel) 25 mg tablet Take I tab (25mg) in the morning and 2 tabs (50mg) at night 10/13/2024 active colestipoL (COLESTID) 1 gram tablet Take 1 tablet (1 g total) by mouth in the morning. 09/14/2024 active rifAXIMin (XIFAXAN) 550 mg tablet Take 1 tablet (550 mg total) by mouth in the morning and 1 tablet (550 mg total) at noon and 1 tablet (550 mg total) before bedtime. Do all this for 10 days. 06/06/2024 07/04/2024 aborted omeprazole OTC (PriLOSEC OTC) 20 mg EC tablet Take 1 tablet (20 mg total) by mouth in the morning. 06/03/2023 07/04/2023 active Sucralfate (Carafate) 1 GM/10 ML Udcup 06/01/2023 active Dicyclomine Hcl 05/14/2023 activ e lisinopriL (PRINIVIL) 10 mg tablet Take 1 tablet (10 mg total) by mouth in the morning. 04/26/2023 09/21/2023 active naproxen (NAPROSYN) 375 mg tablet Take 1 tablet (375 mg total) by mouth 2 (two) times a day as needed for moderate pain (4-7) for up to 15 days. 03/05/2023 03/21/2023 active ondansetron ODT (ZOFRAN-ODT) 4 mg disintegrating tablet 07/18/2022 10/14/2022 active traZODone (DESYREL) 100 mg tablet Take 1 tablet (100 mg total) by mouth nightly as needed for insomnia. 02/13/2022 05/19/2023 active lisinopriL (PRINIVIL) 10 mg tablet Take 1 tablet by mouth in the morning. 12/27/2018 10/18/2023 aborted Benazepril (Benazepril Hcl) 10 MG Tablet 12/22/2018 active traZODone (DESYREL) 50 mg tablet Take by mouth. 03/25/2017 01/31/2024 active Trazodone Hcl 09/17/2016 12/22/2018 comp leted Cephalexin (Keflex) 500 MG Capsule 09/17/2016 11/16/2018 completed Prednisone 10/02/2015 12/15/2015 complet ed Sertraline Hcl (Zoloft) 100 MG Tab 02/01/2014 12/22/2018 compl eted Trazodone Hcl 02/01/2014 12/22/2018 comp leted Oxycodone Hcl/Acetaminophen (Percocet 5/325) 1 TAB Tab 04/04/2012 06/26/2012 completed Simvastatin 03/30/2012 12/22/2018 active Clonazepam 03/30/2012 09/17/2016 complet ed Oxybutynin Chloride (Ditropan) 5 MG Tab 03/30/2012 09/17/2016 compl eted Ibuprofen 03/30/2012 03/19/2013 complete d C L A 03/30/2012 06/26/2012 completed Losartan Potassium (Cozaar) 50 MG Tablet 10/02/2011 12/22/2018 active Aspirin (Aspirin Ec) 81 MG Ect 10/02/2011 03/19/2013 completed Trazodone Hcl 10/02/2011 03/19/2013 comp leted FLUoxetine 20 mg tablet Take 20 mg by mouth in the morning. 01/31/2024 active vitamin E 200 unit capsule Take 200 Units by mouth daily. 05/19/2023 active amLODIPine (NORVASC) 5 MG tablet Take 5 mg by mouth daily. active busPIRone (BUSPAR) 30 MG tablet Take 10 mg by mouth 2 (two) times a day. active Calcium Carb-Cholecalciferol (CALCIUM CARBONATE-VITAMIN D3 PO) Take by mouth. active cyanocobalamin (VITAMIN B-12) 250 MCG tablet Take 250 mcg by mouth daily. active dicyclomine (BENTYL) 20 MG tablet Take 20 mg by mouth 2 times a day. active ginkgo biloba 40 mg tablet Take by mouth. active meclizine (ANTIVERT) 25 MG tablet Take 25 mg by mouth 3 (three) times a day as needed for dizziness. active mirabegron (MYRBETRIQ) 25 mg ER tablet Take 25 mg by mouth daily. active OMEprazole (PriLOSEC) 20 MG capsule Take 20 mg by mouth every morning before breakfast. active ondansetron (ZOFRAN) 4 MG tablet Take 4 mg by mouth 3 times daily (every 8 hours) as needed for nausea or vomiting. active propranolol (INDERAL) 60 MG tablet Take 60 mg by mouth 3 (three) times a day. active pyridoxine, vitamin B6, (B-6) 500 mg tablet Take 500 mg by mouth in the morning. active QUEtiapine (SEROquel) 25 MG tablet Take 25 mg by mouth nightly. active traZODone (DESYREL) 100 MG tablet Take 100 mg by mouth nightly. active Allergies Allergen Reaction Severity Comment Documented Date Source Statu s SALICYLIC ACID-SULFUR RASH/DERMATITI S 02/09/2025 [facility] active DONEPEZIL Ineffective and thought to cause GI issues 10/18/2023 [facility] active SULFA (SULFONAMIDE ANTIBIOTICS) Other reaction(s): body rash 06/05/2010 [facility] active Problems Problem Status Onset Date Problem Type Date of Resoluti on Source Essential tremor active 2022-03-20 [facility]Act [facility] Anxiety disorder active ProblemAct [facility] Advance directive discussed with patient active 2021-02-24 [facility]Act [facility] Right upper quadrant abdominal pain active 2023-09-14 ProblemAct [facility] Mixed stress and urge urinary incontinence active 2020-06-25 ProblemAct [facility] Functional abdominal pain syndrome active 2024-09-14 ProblemAct [facility] Primary osteoarthritis involving multiple joints active 2021-01-[address] [facility] White coat syndrome with diagnosis of hypertension active ProblemAct [facility] Hyperlipidemia active ProblemAct [facility] Chronic cough active 2023-10-18 ProblemAct [facility] Chronic tension-type headache, intractable active 2021-12-26 ProblemAct [facility] Other headache syndrome active 2021-10-10 ProblemAct [facility] BPPV (benign paroxysmal positional vertigo) active 2020-06-25 ProblemAct [facility] Itch of skin active 2023-01-12 ProblemAct [facility] [place] active 2024-09-14 ProblemAct [facility] Gastroesophageal reflux disease without esophagitis active 2020-06-25 ProblemAct [facility] Somatic dysfunction of abdominal region active 2024-09-14 ProblemAct [facility] 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 active 2020-06-25 ProblemAct [facility] Abdominal pain active ProblemAct [facility] Abdominal pain active ProblemAct [facility] Gastroenteritis active ProblemAct [facility] Nausea active ProblemAct [facility] Immunizations Vaccine Date Source Lot Number Status Flu Vacc (65Yr up)/0.5 ML IM SYRINGE 05/29/2024 [facility] [id number] completed PNEUMOCOCCAL CONJUGATE PCV-20 09/10/2023 [facility] [id number] completed Covid-19 Moderna Seasonal Va ccine (12y And Older) 06/28/2023 [facility] [id number] completed COVID-19 MRNA MODERNA BIVALENT 06/28/2023 [facility] 208F2 3A completed COVID-19 MRNA MODERNA BIVALENT 06/01/2022 [facility] [id number] 2A completed Influenza Vaccine 65y and older 06/01/2022 [facility] [id number] completed COVID-19 MRNA (MODERNA) 01/01/2022 [facility] [id number] c ompleted COVID-19 mRNA (MODERNA BOOSTER 1/2 DOSE) 06/18/2021 [facility] [id number] completed Influenza TIV (IM) 05/16/2021 [facility] [id number] comple sahara COVID-19 MRNA (MODERNA) 10/30/2020 [facility] [id number] c ompleted COVID-19 MRNA (MODERNA) 10/05/2020 [facility] [id number] c ompleted Influenza, Injectable, Quadr ivalent, Preservative Free 05/09/2019 [facility] [id number] completed Influenza, Quadrivalent 05/09/2019 [facility] [id number] c ompleted Influenza, Injectable, Quadr ivalent, Preservative Free 05/17/2018 [facility] [id number] completed Influenza, Quadrivalent 05/17/2018 [facility] [id number] c ompleted Influenza, Injectable, Quadr ivalent, Preservative Free 05/24/2017 [facility] [id number] completed Influenza, Quadrivalent 05/24/2017 [facility] [id number] c ompleted Influenza, Unspecified 05/13/2016 [facility] [id number] co mpleted Pneumococcal Polysaccharide PCV-23 10/22/2015 [facility] [id number] completed Influenza, Unspecified 05/13/2015 [facility] [id number] co mpleted PNEUMOCOCCAL POLYSACCHARIDE PPV23 11/14/2014 [facility] completed Influenza, Unspecified 06/06/2014 [facility] [id number] co mpleted Influenza, Seasonal, Injectable 05/10/2012 [facility] [id number] completed Hep A, Unspecified 08/16/2006 [facility] comple sahraa Influenza, Unspecified 08/16/2004 [facility] co mpleted Td 08/16/2000 [facility] completed Encounters Encounter Type Encounter Reason Primary Diagnosis Location Date Ambulatory Gastro-esophageal reflux disease without esophagitis Gastro-esophageal reflux disease without esophagitis [facility] 02/09/2025 Ambulatory Follow-up Follow-up [facility] 01/11/2025 Ambulatory Abdominal Pain Abdominal Pain [facility] 12/14/2024 Ambulatory Right lower quadrant pain Right lower quadrant pain [facility] 12/12/2024 Ambulatory Right lower quadrant pain Right lower quadrant pain [facility] 12/12/2024 Ambulatory Follow-up Follow-up [facility] 12/12/2024 Ambulatory Anxiety disorder due to known physiologi Anxiety disorder due to known physiological condition [facility] 11/02/2024 Ambulatory [facility] 09/12/2024 Ambulatory [facility] 08/23/2024 Ambulatory Alzheimer's disease with late onset Alzheimer's disease with late onset [facility] 03/14/2024 Ambulatory Alzheimer's disease with late onset Alzheimer's disease with late onset [facility] 01/31/2024 Ambulatory Chronic cough Chronic cough [facility] 2023 Ambulatory [facility] 10/18/2023 Ambulatory Chronic cough Chronic cough [facility] 2023 Ambulatory Anxiety disorder due to known physiologi Anxiety disorder due to known physiological condition [facility] 09/14/2023 Ambulatory Encounter for general adult medical exam Encounter for general adult medical examination without abnormal findings [facility] 09/10/2023 Ambulatory [facility] 07/22/2023 Emergency Generalized abdominal pain Generalized abdominal pain [facility] 07/15/2023 Ambulatory Diarrhea, unspecified Diarrhea, unspecified [facility] 07/14/2023 Ambulatory Diarrhea, unspecified Diarrhea, unspecified [facility] 07/01/2023 Ambulatory Diarrhea, unspecified Diarrhea, unspecified [facility] 06/11/2023 Ambulatory Diarrhea, unspecified Diarrhea, unspecified [facility] 06/11/2023 Emergency CHEST PAIN PRECORDIAL PAIN [facility] 06/01 Emergency ABDMONIAL PAIN LOWER ABDOMINAL PAIN, UNSPECIFIED [facility] 05/14/2023 Ambulatory Alzheimer's disease with late onset Alzheimer's disease with late onset [facility] 04/28/2023 Ambulatory Pain in left hip Pain in left hip [facility] 03/05/2023 Ambulatory Pain in left thigh Pain in left thigh [facility] 03/05/2023 Ambulatory Diarrhea, unspecified Diarrhea, unspecified [facility] 01/12/2023 Ambulatory Other symptoms and signs involving cogni Other symptoms and signs involving cognitive functions and awareness [facility] 01/12/2023 Ambulatory Benign paroxysmal vertigo, bilateral Benign paroxysmal vertigo, bilateral [facility] 10/09/2022 Ambulatory Follow-up [facility] 07/07/2022 Emergency L SIDE PAIN CHEST PAIN, UNSPECIFIED [facility] 05/29/2022 Ambulatory Essential (prima ry) hypertension [facility] 03/20/2022 Ambulatory Other specified personal risk factors, not elsewhere classified [facility] 02/13/2022 Ambulatory Essential (prima ry) hypertension [facility] 12/26/2021 Ambulatory Other migraine, not intractable, without status migrainosus [facility] 11/12/2021 Ambulatory Other migraine, not intractable, without status migrainosus [email or web address] 10/20/2021 Ambulatory Other migraine, not intractable, without status migrainosus [facility] 10/06/2021 Ambulatory Contact with and (suspected) exposure to covid-19 [facility] 08/29/2021 Ambulatory Encounter for screening for osteoporosis [facility] 08/25/2021 Ambulatory Essential (prima ry) hypertension [facility] 06/27/2021 Ambulatory Asymptomatic microscopic hematuria [facility] 06/24/2021 Ambulatory Encounter for immunization [facility] 06/18/2021 Care Team Organization Name Specialty Phone Email Start Date End [facility] te [email or web address] [facility] Arti Nolasco [facility] 12/14/2024 [employer] 07/15/2023 07/15/2023 [facility]oc [facility] 01/12/2023 [facility] ARTI NOLASCO Primary Care 07/08/2022 07/14/2024 [facility] VERIFY,PCP Primary Care 11/24/2024 [facility] PCP VERIFY Primary Care 05/29/2022 [facility] ARTI NOLASCO Primary Care 11/12/2021 [facility] Arti Nolasco Primary Care 10/06/2021 11/12/2021 [facility] ARTI NOLASCO Primary Care 06/24/2021 07/07/2022
[2025-03-09 18:13] VITALS: BMI 34.9
[2025-03-09 18:19] VITALS: BP 142/91; PULSE 102; RESP 18; TEMP 36.6; O2SAT 98
[2025-03-09 20:00] VITALS: BP 134/74; PULSE 106; RESP 16; TEMP 36.6; O2SAT 98
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
[2025-03-09 21:57] LABS: Appearance Urine Cloudy; Glucose Urine UA Negative (Negative); PH 5.5 (5.0-9.0); Specific Gravity - Urine 1.020 (1.005-1.025); UMIC TRIGGER UA YES
[2025-03-09 22:45] VITALS: BP 134/74; PULSE 106
[2025-03-10 08:01] LABS: Hemoglobin A1C 140.3908 umol/L; Total Hemoglobin (HGBA1C) 3491.3310 umol/L
[2025-03-10 08:16] LABS: B Type Natriuretic Peptide 83 pg/mL (<100)
[2025-03-10 08:33] LABS: Alanine Aminotransferase 14 U/L (0-31); Albumin Level 3.9 g/dL (3.5-5.0); Alkaline Phosphatase 66 U/L (39-117); Anion Gap 12 (12-20); Aspartate Amino Transferase 26 U/L (5-31); Blood Urea Nitrogen 16 mg/dL (9-16); Calcium 9.3 mg/dL (8.4-10.2); Carbon Dioxide 28 mmol/L (22-29); Chloride 104 mmol/L (96-108); Cholesterol 155 mg/dL (<200); Creatinine Clr Calc Pharmacy 40.5; Estimated Glomerular Filt Rate 40; HDL Cholesterol 41 mg/dL (>40); Potassium 4.4 mmol/L (3.3-5.1); Sodium 140 mmol/L (135-145); Total Protein 7.5 g/dL (6.5-8.0); Triglycerides 151 mg/dL (<150)
[2025-03-10 08:48] LABS: Free T4 (Free Thyroxine) 1.18 ng/dL (0.71-1.85); Thyroid Stimulating Hormone 4.39 uIU/mL (0.32-4.0)
[2025-03-10 08:49] VITALS: BP 117/71; PULSE 76; RESP 18; TEMP 36.3; O2SAT 98
[2025-03-10] MEDS: Propranolol HCL LA 60 MG CAP.SA.24H PO (09:03)
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
[2025-03-10 20:40] VITALS: BP 126/59; PULSE 71; RESP 16; TEMP 35.9; O2SAT 97
[2025-03-11 09:22] VITALS: BP 118/70; PULSE 65; RESP 16; TEMP 36.9; O2SAT 94
[2025-03-11] MEDS: Propranolol HCL LA 60 MG CAP.SA.24H PO (09:23)
--- NOTE | 2025-03-11 16:11 | HO.PSYCHPN ---
Subjective Subjective Date of Service: 03/11/25 Reason For Visit: Unspecified psychosis Dementia w/ behavioral distu Interim History: Settling on the unit. Memory deficits and confusion very clear. She is alert but easily confused. She enters the wrong rooms. Takes her roommates clothes and puts them on believing they are hers. Not irritable rather calm and pleasant when redirected. Acknowledges she has dementia but very poor insight into the severity of her memory deficits. Says she misses her home. Says BF is supposed to visit. Adherent to medications. No hallucinations reported and doesn't appear to be internally preoccupied. Appears anxious and apprehensive at times. Getting along with roommate. Says they [place]. Review of Systems Review of Systems Patient denies any chest pain, shortness of breath at rest or with exertion, nausea/vomiting, abdominal pain but reports intermittent abdominal cramping which has been chronic and persistent. Patient follows with a specialist for her stomach issues. Patient denies any headache, visual changes, difficulty swallowing. Patient denies history of sinus infections. Patient reports feeling mildly anxious in his new environment. Patient denies any SI, HI or hallucinations. Yes all other systems are reviewed and are negative Mental Status Exam Mental Status Exam Narrative: General appearance: casually appropriate dress. Good hygiene.? Eye contact: WNL. Musculoskeletal: Normal muscle strength/tone, Normal gait and station, No abnormal involuntary movements like tremors, EPS or dyskinesia. No psychomotor agitation or retardation. Normal posture.??? Manner/behavior: cooperative Speech:? Word finding difficulty. Normal rate, tone and volume. Mood: I just want to go home. Affect: constricted range,anxious. congruent to mood? Thought process/associations: confabulation?? Thought content:?Reported delusions and PI? Hallucinations: Reported hallucinations per collateral. Denied now. Suicidality/self-destructive behavior: none, future oriented, hopeful.? ? Homicidally/violence: none.? Reliability: poor.? ? Judgment: poor.? ? Insight: poor Cognition: disoriented to time and place and situation. STM 0/3. ? Impulse control and emotional regulation: poor. Intelligence estimate: average.? Diagnostics Vital Signs (24Hr): Vital Signs - 24 hr 03/10/25 20:40 03/11/25 09:22 Temperature 96.7 F L 98.4 F Pulse Rate 71 65 Respiratory Rate 16 16 Blood Pressure 126/59 L 118/70 Pulse Oximetry 97 94 Oxygen Delivery Method Room Air Room Air BMI result Body Mass Index 34.9 Labs 03/10/25 07:41 Labs: Laboratory Results - last 48 hr 03/09/25 03/10/25 21:40 07:41 Sodium 140 Potassium 4.4 Chloride 104 Carbon Dioxide 28 Anion Gap 12 BUN 16 Creatinine 1.29 Estim Creat Clear Calc 40.5 Estimated GFR 40 Random Glucose 114 Estimat Average Glucose 120 Hemoglobin A1c % 5.8 Calcium 9.3 Total Bilirubin 0.6 AST 26 ALT 14 Alkaline Phosphatase 66 B-Natriuretic Peptide 83 Total Protein 7.5 Albumin 3.9 Triglycerides 151 H Cholesterol 155 LDL Cholesterol, Calc 84 HDL Cholesterol 41 TSH 4.39 H Free T4 1.18 Urine Color Dark Yellow Urine Appearance Cloudy Urine pH 5.5 Ur Specific Center 1.020 Urine Protein 30 (1+) H Urine Glucose (UA) Negative Urine Ketones Trace Urine Blood Small (1+) H Urine Nitrite Negative Ur Leukocyte Esterase Large (3+) H Urine RBC 0-2 Urine WBC 6-10 Ur Squamous Epith Cells 11-20 Urine Bacteria 1+ Hyaline Casts 3-5 Medications Medications Current Medications Acetaminophen (Acetaminophen 325 Mg Tablet) 650 mg PO Q6H PRN PRN Reason: Headache/Pain, Scale 1-10 Al Hydroxide/Mg Hydroxide (Magnesium Hydrox/Alum Hydrox 30 Ml Oral.Susp) 30 ml PO Q6H PRN PRN Reason: Heartburn/Nausea Amlodipine Besylate (Amlodipine Besylate 5 Mg Tablet) 5 mg PO DAILY [facility]; Protocol Last Admin: 03/11/25 09:23 Dose: 5 mg Buspirone HCl (Buspirone Hcl 5 Mg Tablet) 15 mg PO BID [facility] Last Admin: 03/11/25 09:24 Dose: 15 mg Dicyclomine HCl (Dicyclomine Hcl 10 Mg Capsule) 20 mg PO BID [facility] Last Admin: 03/11/25 09:23 Dose: 20 mg Hydroxyzine HCl (Hydroxyzine Hcl 25 Mg Tablet) 25 mg PO Q6H PRN PRN Reason: mild anxiety Magnesium Hydroxide (Milk Of Magnesia 30 Ml Oral.Susp) 30 ml PO DAILY PRN PRN Reason: Constipation Nicotine Polacrilex (Nicotine Polacrilex 2 Mg Gum) 2 mg BUCCAL Q2H PRN PRN Reason: Nicotine Cravings Non-Formulary Medication (Colestipol) 1 gm PO DAILY [facility] Omeprazole (Omeprazole 20 Mg Capsule.Dr) 20 mg PO DAILY [facility] Last Admin: 03/11/25 09:23 Dose: 20 mg Propranolol HCl (Propranolol Hcl La 60 Mg Cap.Sa.24h) 60 mg PO DAILY [facility]; Protocol Last Admin: 03/11/25 09:23 Dose: 60 mg Risperidone (Risperidone 0.5 Mg Tablet) 0.5 mg PO BID [facility] Last Admin: 03/11/25 09:24 Dose: 0.5 mg Risperidone (Risperidone 0.5 Mg Tablet) 0.5 mg PO BID PRN PRN Reason: agitation Trazodone HCl (Trazodone Hcl 50 Mg Tablet) 50 mg PO BEDTIME MRX1 PRN PRN Reason: Insomnia Allergies Allergies Allergy/AdvReac Type Severity Reaction Status Date / Time Sulfa (Sulfonamide Allergy Severe Rash Verified 03/09/25 20:52 Antibiotics) Assessment & Plan Assessment & Plan (1) Alzheimer's dementia: Qualifiers: Alzheimer's disease onset: unspecified onset Dementia behavioral or psychological symptom: with anxiety Dementia severity: unspecified severity Qualified Code(s): G30.9 - Alzheimer's disease, unspecified; F02.84 - Dementia in other diseases classified elsewhere, unspecified severity, with anxiety Status: Acute Code(s): G30.9 - Alzheimer's disease, unspecified; F02.80 - Dementia in other diseases classified elsewhere, unspecified severity, without behavioral disturbance, psychotic disturbance, mood disturbance, and anxiety Plan This is the first reported psychiatric admission for this 74 year old [id number] female from [place], [place]. Patient was transferred from [facility] ED. 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 Patient has a diagnosis of dementia since 2017. She reportedly left the home in [place] and drove to [place] and then back to [place]. In [place] she parked at a fire station and told 2 men there she was lost and told them her BF was stealing money from her. They called the police and patient was taken to the ED. PLAN: - Admit to inpatient psychiatry - CV - Collateral information from family and providers. - Milieu treatment and group therapy. - Medications: Continue OP regimen. - Social work evaluation. - Disposition planning. Hypertension Blood pressure has improved since arrival Patient will continue her amlodipine 5 mg daily Low-sodium diet Monitor blood pressure at least daily Tachycardia EKG requested, Sinus TACH 103, possible left atrial enlargement, Qtc 434 Suspect tachycardia secondary to patient's anxiety level Patient likely did not receive her propranolol per nursing at [facility], will order a 1 time dose of 40 mgs tonight Patient normally on propranolol 60 mg daily Patient is afebrile, no leukocytosis, UA negative at [place] Added BNP to AM labs, if elevated, may require echo Stomach cramps Continue Bentyl, chronic in presentation Patient follows with a specialist in the outpatient setting Continue bowel regimen Monitor for constipation GERD Continue omeprazole Obesity Patient has made efforts to lose weight by not eating bagels or sugar Nutritional consult as needed 03/11: continue current management and treatment plan. Reason for continued inpatient stay Substantial Risk for: inability to function and rapid decompensation Time Spent With Patient Time: Total time managing care of this patient today ____ minutes.
[2025-03-11 20:00] VITALS: BP 128/60; PULSE 65; RESP 17; TEMP 36.6; O2SAT 97
[2025-03-12 08:55] VITALS: BP 126/61; PULSE 69; RESP 18; TEMP 36.3; O2SAT 97
[2025-03-12] MEDS: Propranolol HCL LA 60 MG CAP.SA.24H PO (08:58)
--- NOTE | 2025-03-12 18:41 | P.PNPSI_ITS ---
Subjective Subjective Date of Service: 03/12/25 Reason For Visit: Unspecified psychosis Dementia w/ behavioral distu Subjective Notes: Conditional Voluntary Healthcare Proxy: No Guardianship: No Medical Problems Affecting Mental Status: No Interim History: Medical record and nursing notes reviewed; case discussed during rounds with team/nursing staff, and met with patient for supportive therapy/psychoeducation, as well as medication management. Patient reports slept well. No appetite issues. Was medication compliance. Denies side effects. Reported that she has severe abdominal pain 03/25 and wanted to be on antibiotic. She expressed that with this provider in on the medical social worker. Assure patient that she needs to be seen by the medical team to see if any more tests need to be done before started on antibiotic. Denies heartburn. Hospitalist consult placed. Denies depression anxiety. She is forgetful. She is focused on wanting to go home and I do not want to be here . She thinks she have to be here for 30 days. Review with her regarding medications management, and placement if she able to return. residential program worker will do collateral with a boyfriend who she staying with. She reports that the boyfriend manage her medications, but she does manage her own money and paid the bills-mortgage. Reported that she pay 720 per month for rent. Does ADLs and does the cooking at home. She is not sure if she has psychiatrist at this current time but remember she has not seen the psychiatrist for many years. PCP manage her medication. Reported that she has a son and daughter who she is close with. Denies safety concerns. May be need [place] done to assess her functioning due to dementia-Alzheimer Medication Compliance: Yes Side effects from medications: No Attending Groups: Yes Review of Systems Acute medical concerns: No Medical Review of Systems: unchanged Review of Systems: However reports abdominal pain. Review of Systems Review of Systems Patient denies any chest pain, shortness of breath at rest or with exertion, nausea/vomiting, abdominal pain but reports intermittent abdominal cramping which has been chronic and persistent. Today it got worse. Patient follows with a specialist for her stomach issues. Patient denies any headache, visual changes, difficulty swallowing. Patient denies history of sinus infections. Patient reports feeling mildly anxious in his new environment. Patient denies any SI, HI or hallucinations. Yes all other systems are reviewed and are negative Mental Status Exam Mental Status Exam Narrative: General appearance: casually appropriate dress. Good hygiene.? Eye contact: WNL. Musculoskeletal: Normal muscle strength/tone, Normal gait and station, No abnormal involuntary movements like tremors, EPS or dyskinesia. No psychomotor agitation or retardation. Normal posture.??? Manner/behavior: cooperative Speech:? Word finding difficulty. Normal rate, tone and volume. Mood: I do not want to be here long. Affect: constricted range,anxious. congruent to mood? Thought process/associations: confabulation?? Thought content: Focused on discharge Hallucinations: Denies voices Suicidality/self-destructive behavior: none, future oriented, hopeful.? ? Homicidally/violence: none.? Reliability: poor.? ? Judgment: poor ? Insight: poor Cognition: disoriented to time and place and situation. STM 0/3. ? Impulse control and emotional regulation: Fair Intelligence estimate: average.? Diagnostics Vital Signs (24Hr): Vital Signs - 24 hr 03/11/25 20:00 03/12/25 08:55 Temperature 97.8 F 97.3 F Pulse Rate 65 69 Respiratory Rate 17 18 Blood Pressure 128/60 126/61 Pulse Oximetry 97 97 Oxygen Delivery Method Room Air Room Air BMI result Body Mass Index 34.9 Labs 03/10/25 07:41 Medications Medications Current Medications Acetaminophen (Acetaminophen 325 Mg Tablet) 650 mg PO Q6H PRN PRN Reason: Headache/Pain, Scale 1-10 Al Hydroxide/Mg Hydroxide (Magnesium Hydrox/Alum Hydrox 30 Ml Oral.Susp) 30 ml PO Q6H PRN PRN Reason: Heartburn/Nausea Amlodipine Besylate (Amlodipine Besylate 5 Mg Tablet) 5 mg PO DAILY [facility] BEDS AT [facility]; Protocol Last Admin: 03/12/25 08:58 Dose: 5 mg Buspirone HCl (Buspirone Hcl 5 Mg Tablet) 15 mg PO BID [facility] 234 BEDS AT [facility] Last Admin: 03/12/25 08:56 Dose: 15 mg Dicyclomine HCl (Dicyclomine Hcl 10 Mg Capsule) 20 mg PO BID [facility]CLUDE 234 BEDS AT THE [facility] Last Admin: 03/12/25 08:57 Dose: 20 mg Hydroxyzine HCl (Hydroxyzine Hcl 25 Mg Tablet) 25 mg PO Q6H PRN PRN Reason: mild anxiety Magnesium Hydroxide (Milk Of Magnesia 30 Ml Oral.Susp) 30 ml PO DAILY PRN PRN Reason: Constipation Memantine (Memantine Hcl 5 Mg Tablet) 5 mg PO DAILY [facility]S [facility]CLUDE 234 BEDS AT [facility] Nicotine Polacrilex (Nicotine Polacrilex 2 Mg Gum) 2 mg BUCCAL Q2H PRN PRN Reason: Nicotine Cravings Non-Formulary Medication (Colestipol) 1 gm PO DAILY [facility] Omeprazole (Omeprazole 20 Mg Capsule.Dr) 20 mg PO DAILY [facility] Last Admin: 03/12/25 08:57 Dose: 20 mg Propranolol HCl (Propranolol Hcl La 60 Mg Cap.Sa.24h) 60 mg PO DAILY [facility] 234 BEDS AT [facility]; Protocol Last Admin: 03/12/25 08:58 Dose: 60 mg Risperidone (Risperidone 0.5 Mg Tablet) 0.5 mg PO BID PRN PRN Reason: agitation Risperidone (Risperidone 1 Mg Tablet) 1 mg PO BID [facility] Trazodone HCl (Trazodone Hcl 50 Mg Tablet) 50 mg PO BEDTIME MRX1 PRN PRN Reason: Insomnia Allergies Allergies Allergy/AdvReac Type Severity Reaction Status Date / Time Sulfa (Sulfonamide Allergy Severe Rash Verified 03/09/25 20:52 Antibiotics) Assessment & Plan Assessment & Plan (1) Alzheimer's dementia: Qualifiers: Alzheimer's disease onset: unspecified onset Dementia severity: u nspecified severity Dementia behavioral or psychological symptom: with anxiety Qualified Code(s): G30.9 - Alzheimer's disease, unspecified; F02.84 - Dementia in other diseases classified elsewhere, unspecified severity, with anxiety Status: Acute Code(s): G30.9 - Alzheimer's disease, unspecified; F02.80 - Dementia in other diseases classified elsewhere, unspecified severity, without behavioral disturbance, psychotic disturbance, mood disturbance, and anxiety Plan HPI: This is the first reported psychiatric admission for this 74 year old [id number] female from [place], [place]. Patient was transferred from [facility] ED. Information was obtained from patient who isn't a reliable coupling machine operator due to her cognitive limitations and noted confabulation and the ED [facility] consultation records [facility]. Patient has a diagnosis of dementia since 2017. She reportedly left the home in [place] and drove to [place] and then back to [place]. In [place] she parked at a fire station and told 2 men there she was lost and told them her BF was stealing money from her. They called the police and patient was taken to the ED. PLAN: - Admit to inpatient psychiatry - CV - Collateral information from family and providers. - Milieu treatment and group therapy. - Medications: Continue OP regimen. - Social work evaluation. - Disposition planning. Hypertension Blood pressure has improved since arrival Patient will continue her amlodipine 5 mg daily Low-sodium diet Monitor blood pressure at least daily Tachycardia EKG requested, Sinus TACH 103, possible left atrial enlargement, Qtc 434 Suspect tachycardia secondary to patient's anxiety level Patient likely did not receive her propranolol per nursing at [facility], will order a 1 time dose of 40 mgs tonight Patient normally on propranolol 60 mg daily Patient is afebrile, no leukocytosis, UA negative at [place] Added BNP to AM labs, if elevated, may require echo Stomach cramps Continue Bentyl, chronic in presentation Patient follows with a specialist in the outpatient setting. Hospitalist consult placed today 03/12/25. Continue bowel regimen Monitor for constipation GERD Continue omeprazole Obesity Patient has made efforts to lose weight by not eating bagels or sugar Nutritional consult as needed 03/11: continue current management and treatment plan. 03/12/25: Slept well and have no issue with appetite. Focused on wanting to go home. She does not want to be here folate 30 days. Reviewed with patient criteria to get home, but need to be stabilized. Denies safety concerns, anxious but visible and pleasant upon approach. She is forgetful. 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 residential program worker to do collateral with the boyfriend/family Increase risperidone up to 1 mg twice a day. Also start on Memantine 5 mg daily for dementia Alzheimer. Continue with risperidone 0.5 b.i.d. p.r.n. agitation. Patient educated on: diagnosis, medication risk/benefits and therapeutic strategies Informed Consent: further education needed Reason for continued inpatient stay Substantial Risk for: med/psych decompensation Time Spent With Patient Time: Total time managing care of this patient today ____ minutes.
[2025-03-12 20:00] VITALS: BP 134/75; PULSE 60; RESP 16; TEMP 36.1; O2SAT 96
[2025-03-13 08:00] VITALS: BP 131/63; RESP 16; TEMP 35.7; O2SAT 96
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
[2025-03-13 09:10] VITALS: BP 131/63
[2025-03-13 09:11] VITALS: BP 131/63; PULSE 79
[2025-03-13] MEDS: Propranolol HCL LA 60 MG CAP.SA.24H PO (09:11)
--- NOTE | 2025-03-13 09:40 | PM.EVENT ---
Event Note Date of Service: 03/13/25 Event Note: Pt is a 74-year-old female admitted to [facility] psych unit with hospitalist consult for 8/10 abdominal pain. Pt seen and examined in her room where she is noted to be sleeping comfortably on her side in bed. Pt initially states has no acute medical complaints. Reports was able to eat oatmeal for breakfast without nausea or vomiting. When asked about any abdominal pain, pt states has had severe and constant abdominal pain for the past week, though has long hx of abdominal pain and cramping for many years. Sees a GI specialist at [facility], though is uncertain what the provider's name is. Physical exam is overall unremarkable. Initially tender to RLQ, though not consistent with repeat palpitation. Overall clinical picture appears benign. Pt is tolerating food and sleeping without difficulties. Pain appears chronic in nature. Continue with Bentyl and PPI. No indication at this time for additional workup or imaging. Time Spent With Patient Time: Total time managing care of this patient today ____ minutes.
[2025-03-13 20:00] VITALS: BP 136/67; PULSE 67; RESP 18; TEMP 36.4; O2SAT 98
[2025-03-14 07:55] VITALS: BP 106/60; PULSE 66; RESP 16; TEMP 36.6; O2SAT 98
[2025-03-14] MEDS: Propranolol HCL LA 60 MG CAP.SA.24H PO (08:13)
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
[2025-03-14 19:24] VITALS: BP 116/63; PULSE 68; RESP 16; TEMP 36.8; O2SAT 96
[2025-03-15 01:23] VITALS: BMI 35.2
[2025-03-15 07:55] VITALS: BP 111/66; PULSE 66; RESP 14; TEMP 36.5; O2SAT 98
[2025-03-15] MEDS: Propranolol HCL LA 60 MG CAP.SA.24H PO (08:29)
[2025-03-15 08:48] VITALS: BMI 35.1
--- NOTE | 2025-03-15 16:44 | HO.PSYCHPN ---
Subjective Subjective Date of Service: 03/15/25 Reason For Visit: Unspecified psychosis Dementia w/ behavioral distu Subjective Notes: Conditional Voluntary Medical Problems Affecting Mental Status: No Interim History: Medical record and nursing notes reviewed; case discussed during rounds with team/nursing staff, and met with patient for supportive therapy/psychoeducation, as well as medication management. Patient slept with medication, reports having trouble falling asleep. Reports she takes melatonin at home. Agreed to start 6 mg at bedtime. Denies other side effects from medications. Denies anxiety and depression. Continued to report abdominal pain, perseverative on antibiotic. Confirmed with her that there is not necessary to be on anti biotic per hospitalist who saw her yesterday. Observed attended groups, visible on the unit, calm and pleasant upon approach. No behavior issues. Reported that she just change her dressing to her current outfit to feel more comfortable. Reported that her boyfriend will come visit her soon this week and bring her more clothes. Denies safety concerns. Reported that when she gets tired be cranky to herself not to other people. Medication Compliance: Yes Side effects from medications: No Attending Groups: Yes Review of Systems Acute medical concerns: No Medical Review of Systems: unchanged Review of Systems Review of Systems Patient denies any chest pain, shortness of breath at rest or with exertion, nausea/vomiting, abdominal pain but reports intermittent abdominal cramping which has been chronic and persistent. Patient follows with a specialist for her stomach issues. Patient denies any headache, visual changes, difficulty swallowing. Patient denies history of sinus infections. Patient reports feeling mildly anxious in his new environment. Patient denies any SI, HI or hallucinations. 03/13: [place] score 9/30: Indicating severe cognitive impairment with deficits in all domains except language. Scored a 4.2 on the ACLS indicate moderate functional deficits and the need for 38% cognitive assistance for problem solving, safety and ADLs/ADLs completion and consistency Yes all other systems are reviewed and are negative Diagnostics Vital Signs (24Hr): Vital Signs - 24 hr 03/14/25 19:24 03/15/25 07:55 Temperature 98.2 F 97.7 F Pulse Rate 68 66 Respiratory Rate 16 14 Blood Pressure 116/63 111/66 Pulse Oximetry 96 98 Oxygen Delivery Method Room Air Room Air BMI result Body Mass Index 35.1 Labs 03/10/25 07:41 Medications Medications Current Medications Acetaminophen (Acetaminophen 325 Mg Tablet) 650 mg PO Q6H PRN PRN Reason: Headache/Pain, Scale 1-10 Last Admin: 03/15/25 13:00 Dose: 650 mg Al Hydroxide/Mg Hydroxide (Magnesium Hydrox/Alum Hydrox 30 Ml Oral.Susp) 30 ml PO Q6H PRN PRN Reason: Heartburn/Nausea Amlodipine Besylate (Amlodipine Besylate 5 Mg Tablet) 5 mg PO DAILY [facility]; Protocol Last Admin: 03/15/25 08:29 Dose: 5 mg Buspirone HCl (Buspirone Hcl 5 Mg Tablet) 15 mg PO BID [facility] Last Admin: 03/15/25 08:28 Dose: 15 mg Dicyclomine HCl (Dicyclomine Hcl 10 Mg Capsule) 20 mg PO BID [facility] Last Admin: 03/15/25 08:28 Dose: 20 mg Hydroxyzine HCl (Hydroxyzine Hcl 25 Mg Tablet) 25 mg PO Q6H PRN PRN Reason: mild anxiety Last Admin: 03/12/25 20:50 Dose: 25 mg Magnesium Hydroxide (Milk Of Magnesia 30 Ml Oral.Susp) 30 ml PO DAILY PRN PRN Reason: Constipation Melatonin (Melatonin 3 Mg Tablet) 6 mg PO BEDTIME [facility] Memantine (Memantine Hcl 5 Mg Tablet) 5 mg PO DAILY [facility] Last Admin: 03/15/25 08:28 Dose: 5 mg Nicotine Polacrilex (Nicotine Polacrilex 2 Mg Gum) 2 mg BUCCAL Q2H PRN PRN Reason: Nicotine Cravings Omeprazole (Omeprazole 20 Mg Capsule.Dr) 20 mg PO DAILY [facility] Last Admin: 03/15/25 08:29 Dose: 20 mg Propranolol HCl (Propranolol Hcl La 60 Mg Cap.Sa.24h) 60 mg PO DAILY [facility]; Protocol Last Admin: 03/15/25 08:29 Dose: 60 mg Risperidone (Risperidone 0.5 Mg Tablet) 0.5 mg PO BID PRN PRN Reason: agitation Risperidone (Risperidone 1 Mg Tablet) 1 mg PO BID [facility] Last Admin: 03/15/25 08:28 Dose: 1 mg Simethicone (Simethicone 80 Mg Tab.Chew) 80 mg PO QIDWMHS PRN PRN Reason: gas/Heart burn Last Admin: 03/15/25 12:55 Dose: 80 mg Trazodone HCl (Trazodone Hcl 50 Mg Tablet) 50 mg PO BEDTIME MRX1 PRN PRN Reason: Insomnia Last Admin: 03/12/25 20:50 Dose: 50 mg Allergies Allergies Allergy/AdvReac Type Severity Reaction Status Date / Time Sulfa (Sulfonamide Allergy Severe Rash Verified 03/09/25 20:52 Antibiotics) Assessment & Plan Assessment & Plan (1) Alzheimer's dementia: Qualifiers: Alzheimer's disease onset: unspecified onset Dementia severity: unspecified severity Dementia behavioral or psychological symptom: with anxiety Qualified Code(s): G30.9 - Alzheimer's disease, unspecified; F02.84 - Dementia in other diseases classified elsewhere, unspecified severity, with anxiety Status: Acute Code(s): G30.9 - Alzheimer's disease, unspecified; F02.80 - Dementia in other diseases classified elsewhere, unspecified severity, without behavioral disturbance, psychotic disturbance, mood disturbance, and anxiety Plan HPI: This is the first reported psychiatric admission for this 74 year old [id number] female from [place], [place]. Patient was transferred from [facility] ED. 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 Patient has a diagnosis of dementia since 2017. She reportedly left the home in [place] and drove to [place] and then back to [place]. In [place] she parked at a fire station and told 2 men there she was lost and told them her BF was stealing money from her. They called the police and patient was taken to the ED. PLAN: - Admit to inpatient psychiatry - CV - Collateral information from family and providers. - Milieu treatment and group therapy. - Medications: Continue OP regimen. - Social work evaluation. - Disposition planning. Hypertension Blood pressure has improved since arrival Patient will continue her amlodipine 5 mg daily Low-sodium diet Monitor blood pressure at least daily Tachycardia EKG requested, Sinus TACH 103, possible left atrial enlargement, Qtc 434 Suspect tachycardia secondary to patient's anxiety level Patient likely did not receive her propranolol per nursing at [facility], will order a 1 time dose of 40 mgs tonight Patient normally on propranolol 60 mg daily Patient is afebrile, no leukocytosis, UA negative at [place] Added BNP to AM labs, if elevated, may require echo Stomach cramps Continue Bentyl, chronic in presentation Patient follows with a specialist in the outpatient setting. Hospitalist consult placed today 03/12/25. Continue bowel regimen Monitor for constipation GERD Continue omeprazole Obesity Patient has made efforts to lose weight by not eating bagels or sugar Nutritional consult as needed 03/11: continue current management and treatment plan. 03/12/25: Slept well and have no issue with appetite. Focused on wanting to go home. She does not want to be here folate 30 days. Reviewed with patient criteria to get home, but need to be stabilized. Denies safety concerns, anxious but visible and pleasant upon approach. She is forgetful. 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 Also start on Memantine 5 mg daily for dementia Alzheimer. Continue with risperidone 0.5 b.i.d. p.r.n. agitation. 03/13/25: Doing well with medication changes and new Menantine. Slept through the night, was medication compliant, less focused on going home today. Feeling lonely , some anxiety but not depression I want to live . Denies safety concerns. [place] done today scored [place] 9/30. Indicating severe cognitive impairment with deficits in all domains except language. She also scored a 4.2 on the ACLS indicate moderate functional deficits and the need for 38% cognitive assistance for problem solving, safety and ADLs/ADLs completion and consistency. She was the same outfit as yesterday. Continue complain about stomach pain, on the right side. Denies trouble voiding. No burning sensation. Simethicone 80 mg q.i.d. HS with meal as needed for gas or heartburn. Hospitalist was notified that she has a consult order in. 03/14/2025 Patient anxious and dysphoric has been on memantine BuSpar Risperdal. Hospitalist service saw the patient for abdominal pain did not feel need for further workup at this time. Seems to be tolerating medication patient does states she hopes to live with a cousin if she is not able to live with her partner. 03/15/25: Reports trouble falling asleep, but has been eating okay. Denies side effects from medications. Observed visible on the unit, attended groups, no angry moments, feeling anxious. Denies safety concerns I never want to . I love my life . Reports the boyfriend will come visit her bringing her more clothes this week. Perseverative on abdominal pain which she knows that is the chronic issues. Confirmed with her that she does not need antibiotic per hospitalist who saw her the day before. She thinks that she needs to be on antibiotic as she did the research in the past with the recommendation that she should be on antibiotic. Denies other safety concerns. Melatonin 6 mg at bedtime for sleep (reported that she takes 5 mg [id number] at home) Patient educated on: diagnosis, medication risk/benefits and therapeutic strategies Informed Consent: understands and further education needed Reason for continued inpatient stay Substantial Risk for: med/psych decompensation Time Spent With Patient Time: Total time managing care of this patient today ____ minutes.
[2025-03-15 20:12] VITALS: BP 122/60; PULSE 64; RESP 16; TEMP 36.2; O2SAT 95
[2025-03-16 08:00] VITALS: BP 135/67; PULSE 75; RESP 16; TEMP 36.4; O2SAT 99
[2025-03-16 08:15] VITALS: BP 135/67
[2025-03-16 08:16] VITALS: BP 135/67
[2025-03-16] MEDS: Propranolol HCL LA 60 MG CAP.SA.24H PO (08:16)
--- NOTE | 2025-03-16 09:35 | HO.PSYCHPN ---
Subjective Subjective Date of Service: 03/16/25 Reason For Visit: Unspecified psychosis Dementia w/ behavioral distu Subjective Notes: Conditional Voluntary Interim History: Patient seen case discussed in rounds with staff. Nurses report pt social engaged med compliant has c/o vague body pain. 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 Feels like not able to take pt back home Medication Compliance: Yes Mental Status Exam Mental Status Exam Narrative: Patient seen casually dressed good eye contact. Speech is clear content focused on visit from partner Mood anxious felt better after visit affect approriate to mood full No SI or HI impulse control intact limited insight Diagnostics Vital Signs (24Hr): Vital Signs - 24 hr 03/15/25 20:12 03/16/25 08:00 03/16/25 08:15 Temperature 97.2 F 97.5 F Pulse Rate 64 75 Respiratory Rate 16 16 Blood Pressure 122/60 135/67 135/67 Pulse Oximetry 95 99 Oxygen Delivery Method Room Air Room Air 03/16/25 08:16 Temperature Pulse Rate Respiratory Rate Blood Pressure 135/67 Pulse Oximetry Oxygen Delivery Method BMI result Body Mass Index 35.1 Labs 03/10/25 07:41 Medications Medications Current Medications Acetaminophen (Acetaminophen 325 Mg Tablet) 650 mg PO Q6H PRN PRN Reason: Headache/Pain, Scale 1-10 Last Admin: 03/15/25 13:00 Dose: 650 mg Al Hydroxide/Mg Hydroxide (Magnesium Hydrox/Alum Hydrox 30 Ml Oral.Susp) 30 ml PO Q6H PRN PRN Reason: Heartburn/Nausea Amlodipine Besylate (Amlodipine Besylate 5 Mg Tablet) 5 mg PO DAILY [facility]; Protocol Last Admin: 03/16/25 08:15 Dose: 5 mg Buspirone HCl (Buspirone Hcl 5 Mg Tablet) 15 mg PO BID [facility] Last Admin: 03/16/25 08:15 Dose: 15 mg Dicyclomine HCl (Dicyclomine Hcl 10 Mg Capsule) 20 mg PO BID [facility] Last Admin: 03/16/25 08:16 Dose: 20 mg Hydroxyzine HCl (Hydroxyzine Hcl 25 Mg Tablet) 25 mg PO Q6H PRN PRN Reason: mild anxiety Last Admin: 03/12/25 20:50 Dose: 25 mg Magnesium Hydroxide (Milk Of Magnesia 30 Ml Oral.Susp) 30 ml PO DAILY PRN PRN Reason: Constipation Melatonin (Melatonin 3 Mg Tablet) 6 mg PO BEDTIME [facility] Last Admin: 03/15/25 20:13 Dose: 6 mg Memantine (Memantine Hcl 5 Mg Tablet) 5 mg PO DAILY [facility] Last Admin: 03/16/25 08:16 Dose: 5 mg Nicotine Polacrilex (Nicotine Polacrilex 2 Mg Gum) 2 mg BUCCAL Q2H PRN PRN Reason: Nicotine Cravings Omeprazole (Omeprazole 20 Mg Capsule.Dr) 20 mg PO DAILY [facility] Last Admin: 03/16/25 08:16 Dose: 20 mg Propranolol HCl (Propranolol Hcl La 60 Mg Cap.Sa.24h) 60 mg PO DAILY [facility]; Protocol Last Admin: 03/16/25 08:16 Dose: 60 mg Risperidone (Risperidone 0.5 Mg Tablet) 0.5 mg PO BID PRN PRN Reason: agitation Risperidone (Risperidone 1 Mg Tablet) 1 mg PO BID [facility] Last Admin: 03/16/25 08:14 Dose: 1 mg Simethicone (Simethicone 80 Mg Tab.Chew) 80 mg PO QIDWMHS PRN PRN Reason: gas/Heart burn Last Admin: 03/16/25 08:16 Dose: 80 mg Trazodone HCl (Trazodone Hcl 50 Mg Tablet) 50 mg PO BEDTIME MRX1 PRN PRN Reason: Insomnia Last Admin: 03/12/25 20:50 Dose: 50 mg Allergies Allergies Allergy/AdvReac Type Severity Reaction Status Date / Time Sulfa (Sulfonamide Allergy Severe Rash Verified 03/09/25 20:52 Antibiotics) Assessment & Plan Assessment & Plan (1) Alzheimer's dementia: Qualifiers: Alzheimer's disease onset: unspecified onset Dementia behavioral or psychological symptom: with anxiety Dementia severity: unspecified severity Qualified Code(s): G30.9 - Alzheimer's disease, unspecified; F02.84 - Dementia in other diseases classified elsewhere, unspecified severity, with anxiety Status: Acute Code(s): G30.9 - Alzheimer's disease, unspecified; F02.80 - Dementia in other diseases classified elsewhere, unspecified severity, without behavioral disturbance, psychotic disturbance, mood disturbance, and anxiety Plan HPI: This is the first reported psychiatric admission for this 74 year old [id number] female from [place], [place]. Patient was transferred from [facility] ED. 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 Patient has a diagnosis of dementia since 2017. She reportedly left the home in [place] and drove to [place] and then back to [place]. In [place] she parked at a fire station and told 2 men there she was lost and told them her BF was stealing money from her. They called the police and patient was taken to the ED. PLAN: - Admit to inpatient psychiatry - CV - Collateral information from family and providers. - Milieu treatment and group therapy. - Medications: Continue OP regimen. - Social work evaluation. - Disposition planning. Hypertension Blood pressure has improved since arrival Patient will continue her amlodipine 5 mg daily Low-sodium diet Monitor blood pressure at least daily Tachycardia EKG requested, Sinus TACH 103, possible left atrial enlargement, Qtc 434 Suspect tachycardia secondary to patient's anxiety level Patient likely did not receive her propranolol per nursing at [facility], will order a 1 time dose of 40 mgs tonight Patient normally on propranolol 60 mg daily Patient is afebrile, no leukocytosis, UA negative at [place] Added BNP to AM labs, if elevated, may require echo Stomach cramps Continue Bentyl, chronic in presentation Patient follows with a specialist in the outpatient setting. Hospitalist consult placed today 03/12/25. Continue bowel regimen Monitor for constipation GERD Continue omeprazole Obesity Patient has made efforts to lose weight by not eating bagels or sugar Nutritional consult as needed 03/11: continue current management and treatment plan. 03/12/25: Slept well and have no issue with appetite. Focused on wanting to go home. She does not want to be here folate 30 days. Reviewed with patient criteria to get home, but need to be stabilized. Denies safety concerns, anxious but visible and pleasant upon approach. She is forgetful. 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 social worker clinical to do collateral with the boyfriend/family Increase risperidone up to 1 mg twice a day. Also start on Memantine 5 mg daily for dementia Alzheimer. Continue with risperidone 0.5 b.i.d. p.r.n. agitation. 03/13/25: Doing well with medication changes and new Menantine. Slept through the night, was medication compliant, less focused on going home today. Feeling lonely , some anxiety but not depression I want to live . Denies safety concerns. [place] done today scored [place] 9/30. Indicating severe cognitive impairment with deficits in all domains except language. She also scored a 4.2 on the ACLS indicate moderate functional deficits and the need for 38% cognitive assistance for problem solving, safety and ADLs/ADLs completion and consistency. She was the same outfit as yesterday. Continue complain about stomach pain, on the right side. Denies trouble voiding. No burning sensation. Simethicone 80 mg q.i.d. HS with meal as needed for gas or heartburn. Hospitalist was notified that she has a consult order in. 03/14/2025 Patient anxious and dysphoric has been on memantine BuSpar Risperdal. Hospitalist service saw the patient for abdominal pain did not feel need for further workup at this time. Seems to be tolerating medication patient does states she hopes to live with a cousin if she is not able to live with her partner. 03/15/25: Reports trouble falling asleep, but has been eating okay. Denies side effects from medications. Observed visible on the unit, attended groups, no angry moments, feeling anxious. Denies safety concerns I never want to . I love my life . Reports the boyfriend will come visit her bringing her more clothes this week. Perseverative on abdominal pain which she knows that is the chronic issues. Confirmed with her that she does not need antibiotic per hospitalist who saw her the day before. She thinks that she needs to be on antibiotic as she did the research in the past with the recommendation that she should be on antibiotic. Denies other safety concerns. Melatonin 6 mg at bedtime for sleep (reported that she takes 5 mg [id number] at home) 03/16/25 Pt with unrealistic expectations cont melatonin buspar can in [place] target mood behavior cognition consider rlower risp Reason for continued inpatient stay Substantial Risk for: inability to function and rapid decompensation Time Spent With Patient Time: Total time managing care of this patient today ____ minutes.
--- NOTE | 2025-03-16 14:08 | PC.NURSE ---
Patient requested her purse and belongings from security to be given to her partner, to be brought home. Her partner signed for and brought home everything from security and the patient's purse.
[2025-03-16 20:00] VITALS: BP 122/91; PULSE 67; TEMP 36.6; O2SAT 96
--- NOTE | 2025-03-17 08:45 | HO.PSYCHPN ---
Subjective Subjective Date of Service: 03/17/25 Reason For Visit: Unspecified psychosis Dementia w/ behavioral distu Subjective Notes: Conditional Voluntary Healthcare Proxy: Yes Guardianship: No Medical Problems Affecting Mental Status: Yes Interim History: 74 yo with confusion - intermittently takes roommates belongings due to confusion- pt apologizing to roommate- Pt pleasant- cooperative- denying complaints to this provider- hoping to go home reports abd pain better with bentyl Medication Compliance: Yes Side effects from medications: No Attending Groups: Intermittent Review of Systems Acute medical concerns: No Medical Review of Systems: unchanged Mental Status Exam Mental Status Exam Patient Appearance: Well Grooomed and Appropriate Patient Orientation: Person, Place and Situation Level of Consciousness: Awake, Appropriate and Alert Patient Behavior: Appropriate and Cooperative Behavior Comments: in confusion may take roommates belongings thinking they are hers- but I return them when roommate complains Mood Description: Calm Affect Description: Appropriate Patient Cognition Impaired: Yes Ability to Follow Directions: Fair Speech Pattern: Clear Hallucinations: None Delusions: Not Present Thought Process: Intact Thought Content: positive for [place] Judgement: Fair Diagnostics Vital Signs (24Hr): Vital Signs - 24 hr 03/16/25 20:00 Temperature 97.9 F Pulse Rate 67 Blood Pressure 122/91 H Pulse Oximetry 96 BMI result Body Mass Index 35.1 Labs 03/10/25 07:41 Medications Medications Current Medications Acetaminophen (Acetaminophen 325 Mg Tablet) 650 mg PO Q6H PRN PRN Reason: Headache/Pain, Scale 1-10 Last Admin: 03/16/25 11:27 Dose: 650 mg Al Hydroxide/Mg Hydroxide (Magnesium Hydrox/Alum Hydrox 30 Ml Oral.Susp) 30 ml PO Q6H PRN PRN Reason: Heartburn/Nausea Amlodipine Besylate (Amlodipine Besylate 5 Mg Tablet) 5 mg PO DAILY [facility]; Protocol Last Admin: 03/16/25 08:15 Dose: 5 mg Buspirone HCl (Buspirone Hcl 5 Mg Tablet) 15 mg PO BID [facility] Last Admin: 03/16/25 21:13 Dose: 15 mg Dicyclomine HCl (Dicyclomine Hcl 10 Mg Capsule) 20 mg PO BID [facility] Last Admin: 03/16/25 21:14 Dose: 20 mg Hydroxyzine HCl (Hydroxyzine Hcl 25 Mg Tablet) 25 mg PO Q6H PRN PRN Reason: mild anxiety Last Admin: 03/12/25 20:50 Dose: 25 mg Magnesium Hydroxide (Milk Of Magnesia 30 Ml Oral.Susp) 30 ml PO DAILY PRN PRN Reason: Constipation Melatonin (Melatonin 3 Mg Tablet) 6 mg PO BEDTIME [facility] Last Admin: 03/16/25 21:14 Dose: 6 mg Memantine (Memantine Hcl 5 Mg Tablet) 5 mg PO DAILY [facility] Last Admin: 03/16/25 08:16 Dose: 5 mg Nicotine Polacrilex (Nicotine Polacrilex 2 Mg Gum) 2 mg BUCCAL Q2H PRN PRN Reason: Nicotine Cravings Omeprazole (Omeprazole 20 Mg Capsule.Dr) 20 mg PO DAILY [facility] Last Admin: 03/16/25 08:16 Dose: 20 mg Propranolol HCl (Propranolol Hcl La 60 Mg Cap.Sa.24h) 60 mg PO DAILY [facility]; Protocol Last Admin: 03/16/25 08:16 Dose: 60 mg Risperidone (Risperidone 0.5 Mg Tablet) 0.5 mg PO BID PRN PRN Reason: agitation Risperidone (Risperidone 1 Mg Tablet) 1 mg PO BID [facility] Last Admin: 03/16/25 21:14 Dose: 1 mg Simethicone (Simethicone 80 Mg Tab.Chew) 80 mg PO QIDWMHS PRN PRN Reason: gas/Heart burn Last Admin: 03/16/25 08:16 Dose: 80 mg Trazodone HCl (Trazodone Hcl 50 Mg Tablet) 50 mg PO BEDTIME MRX1 PRN PRN Reason: Insomnia Last Admin: 03/12/25 20:50 Dose: 50 mg Allergies Allergies Allergy/AdvReac Type Severity Reaction Status Date / Time Sulfa (Sulfonamide Allergy Severe Rash Verified 03/09/25 20:52 Antibiotics) Assessment & Plan Assessment & Plan (1) Alzheimer's dementia: Qualifiers: Alzheimer's disease onset: unspecified onset Dementia behavioral or psychological symptom: with anxiety Dementia severity: unspecified severity Qualified Code(s): G30.9 - Alzheimer's disease, unspecified; F02.84 - Dementia in other diseases classified elsewhere, unspecified severity, with anxiety Status: Acute Code(s): G30.9 - Alzheimer's disease, unspecified; F02.80 - Dementia in other diseases classified elsewhere, unspecified severity, without behavioral disturbance, psychotic disturbance, mood disturbance, and anxiety Plan HPI: This is the first reported psychiatric admission for this 74 year old purpgim-[id number] female from [place], [place]. Patient was transferred from [facility] ED. 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. Patient has a diagnosis of dementia since 2017. She reportedly left the home in [place] and drove to [place] and then back to [place]. In [place] she parked at a fire station and told 2 men there she was lost and told them her BF was stealing money from her. They called the police and patient was taken to the ED. PLAN: - Admit to inpatient psychiatry - CV - Collateral information from family and providers. - Milieu treatment and group therapy. - Medications: Continue OP regimen. - Social work evaluation. - Disposition planning. Hypertension Blood pressure has improved since arrival Patient will continue her amlodipine 5 mg daily Low-sodium diet Monitor blood pressure at least daily Tachycardia EKG requested, Sinus TACH 103, possible left atrial enlargement, Qtc 434 Suspect tachycardia secondary to patient's anxiety level Patient likely did not receive her propranolol per nursing at [facility], will order a 1 time dose of 40 mgs tonight Patient normally on propranolol 60 mg daily Patient is afebrile, no leukocytosis, UA negative at [place] Added BNP to AM labs, if elevated, may require echo Stomach cramps Continue Bentyl, chronic in presentation Patient follows with a specialist in the outpatient setting. Hospitalist consult placed today 03/12/25. Continue bowel regimen Monitor for constipation GERD Continue omeprazole Obesity Patient has made efforts to lose weight by not eating bagels or sugar Nutritional consult as needed 03/11: continue current management and treatment plan. 03/12/25: Slept well and have no issue with appetite. Focused on wanting to go home. She does not want to be here folate 30 days. Reviewed with patient criteria to get home, but need to be stabilized. Denies safety concerns, anxious but visible and pleasant upon approach. She is forgetful. 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 Also start on Memantine 5 mg daily for dementia Alzheimer. Continue with risperidone 0.5 b.i.d. p.r.n. agitation. 03/13/25: Doing well with medication changes and new Menantine. Slept through the night, was medication compliant, less focused on going home today. Feeling lonely , some anxiety but not depression I want to live . Denies safety concerns. [place] done today scored [place] 9/30. Indicating severe cognitive impairment with deficits in all domains except language. She also scored a 4.2 on the ACLS indicate moderate functional deficits and the need for 38% cognitive assistance for problem solving, safety and ADLs/ADLs completion and consistency. She was the same outfit as yesterday. Continue complain about stomach pain, on the right side. Denies trouble voiding. No burning sensation. Simethicone 80 mg q.i.d. HS with meal as needed for gas or heartburn. Hospitalist was notified that she has a consult order in. 03/14/2025 Patient anxious and dysphoric has been on memantine BuSpar Risperdal. Hospitalist service saw the patient for abdominal pain did not feel need for further workup at this time. Seems to be tolerating medication patient does states she hopes to live with a cousin if she is not able to live with her partner. 03/15/25: Reports trouble falling asleep, but has been eating okay. Denies side effects from medications. Observed visible on the unit, attended groups, no angry moments, feeling anxious. Denies safety concerns I never want to . I love my life . Reports the boyfriend will come visit her bringing her more clothes this week. Perseverative on abdominal pain which she knows that is the chronic issues. Confirmed with her that she does not need antibiotic per hospitalist who saw her the day before. She thinks that she needs to be on antibiotic as she did the research in the past with the recommendation that she should be on antibiotic. Denies other safety concerns. Melatonin 6 mg at bedtime for sleep (reported that she takes 5 mg [id number] at home) 03/16/25 Pt with unrealistic expectations cont melatonin buspar can in [place] target mood behavior cognition consider rlower risp 03/17/25 CTP Reason for continued inpatient stay Substantial Risk for: inability to function, rapid decompensation and med/psych decompensation Time Spent With Patient Time: Total time managing care of this patient today ____ minutes.
[2025-03-17 09:17] VITALS: BP 103/56; PULSE 53; RESP 17; TEMP 36.3; O2SAT 97
[2025-03-17] MEDS: Propranolol HCL LA 60 MG CAP.SA.24H PO (09:18)
[2025-03-17 20:00] VITALS: BP 118/57; PULSE 65; RESP 16; TEMP 36.9; O2SAT 97
[2025-03-18 08:35] VITALS: BP 99/55; PULSE 65; RESP 18; TEMP 36.7; O2SAT 97
[2025-03-18] MEDS: Propranolol HCL LA 60 MG CAP.SA.24H PO (09:29)
--- NOTE | 2025-03-18 12:53 | HO.PSYCHPN ---
Subjective Subjective Date of Service: 03/18/25 Reason For Visit: Unspecified psychosis Dementia w/ behavioral distu Subjective Notes: Conditional Voluntary Healthcare Proxy: Yes Guardianship: No Medical Problems Affecting Mental Status: Yes (neurogcog decline) Interim History: 74 yo pleasant confused seems to be baseline ongoing complaints of abd pain asking what her dose of bentyl is- still co abd pain though appears in NAD Laughing inapp with another patient about her behavior toward patient- while provider talking with other patient- /her roommate- Medication Compliance: Yes Side effects from medications: No Attending Groups: Intermittent Review of Systems Acute medical concerns: No Medical Review of Systems: unchanged Mental Status Exam Mental Status Exam Narrative: dressed in night gown and robe- Patient Appearance: Well Grooomed and Appropriate Patient Orientation: Person and Place Level of Consciousness: Awake and Alert Patient Behavior: Cooperative, Invasion - Personal Space (only verbally not physically- boundaries), Distractible and Good Eye Contact Mood Description: Anxious Affect Description: Happy Patient Cognition Impaired: Yes Ability to Follow Directions: Fair Speech Pattern: Clear Thought Process: Confusion Thought Content: positive for [place] Judgement: Poor Diagnostics Vital Signs (24Hr): Vital Signs - 24 hr 03/17/25 20:00 03/18/25 08:35 Temperature 98.4 F 98.1 F Pulse Rate 65 65 Respiratory Rate 16 18 Blood Pressure 118/57 L 99/55 L Pulse Oximetry 97 97 Oxygen Delivery Method Room Air Room Air BMI result Body Mass Index 35.1 Labs 03/10/25 07:41 Medications Medications Current Medications Acetaminophen (Acetaminophen 325 Mg Tablet) 650 mg PO Q6H PRN PRN Reason: Headache/Pain, Scale 1-10 Last Admin: 03/16/25 11:27 Dose: 650 mg Al Hydroxide/Mg Hydroxide (Magnesium Hydrox/Alum Hydrox 30 Ml Oral.Susp) 30 ml PO Q6H PRN PRN Reason: Heartburn/Nausea Amlodipine Besylate (Amlodipine Besylate 5 Mg Tablet) 5 mg PO DAILY [facility]; Protocol Last Admin: 03/18/25 09:30 Dose: 5 mg Buspirone HCl (Buspirone Hcl 5 Mg Tablet) 15 mg PO BID [facility] Last Admin: 03/18/25 09:28 Dose: 15 mg Dicyclomine HCl (Dicyclomine Hcl 10 Mg Capsule) 20 mg PO BID [facility] Last Admin: 03/18/25 09:29 Dose: 20 mg Hydroxyzine HCl (Hydroxyzine Hcl 25 Mg Tablet) 25 mg PO Q6H PRN PRN Reason: mild anxiety Last Admin: 03/12/25 20:50 Dose: 25 mg Magnesium Hydroxide (Milk Of Magnesia 30 Ml Oral.Susp) 30 ml PO DAILY PRN PRN Reason: Constipation Melatonin (Melatonin 3 Mg Tablet) 6 mg PO BEDTIME [facility] Last Admin: 03/17/25 20:24 Dose: 6 mg Memantine (Memantine Hcl 5 Mg Tablet) 5 mg PO DAILY [facility] Last Admin: 03/18/25 09:29 Dose: 5 mg Nicotine Polacrilex (Nicotine Polacrilex 2 Mg Gum) 2 mg BUCCAL Q2H PRN PRN Reason: Nicotine Cravings Omeprazole (Omeprazole 20 Mg Capsule.Dr) 20 mg PO DAILY [facility] Last Admin: 03/18/25 09:30 Dose: 20 mg Propranolol HCl (Propranolol Hcl La 60 Mg Cap.Sa.24h) 60 mg PO DAILY [facility]; Protocol Last Admin: 03/18/25 09:29 Dose: 60 mg Risperidone (Risperidone 0.5 Mg Tablet) 0.5 mg PO BID PRN PRN Reason: agitation Risperidone (Risperidone 1 Mg Tablet) 1 mg PO BID [facility] Last Admin: 03/18/25 09:30 Dose: 1 mg Simethicone (Simethicone 80 Mg Tab.Chew) 80 mg PO QIDWMHS PRN PRN Reason: gas/Heart burn Last Admin: 03/16/25 08:16 Dose: 80 mg Trazodone HCl (Trazodone Hcl 50 Mg Tablet) 50 mg PO BEDTIME MRX1 PRN PRN Reason: Insomnia Last Admin: 03/12/25 20:50 Dose: 50 mg Allergies Allergies Allergy/AdvReac Type Severity Reaction Status Date / Time Sulfa (Sulfonamide Allergy Severe Rash Verified 03/09/25 20:52 Antibiotics) Assessment & Plan Assessment & Plan (1) Alzheimer's dementia: Qualifiers: Alzheimer's disease onset: unspecified onset Dementia behavioral or psychological symptom: with anxiety Dementia severity: unspecified severity Qualified Code(s): G30.9 - Alzheimer's disease, unspecified; F02.84 - Dementia in other diseases classified elsewhere, unspecified severity, with anxiety Status: Acute Code(s): G30.9 - Alzheimer's disease, unspecified; F02.80 - Dementia in other diseases classified elsewhere, unspecified severity, without behavioral disturbance, psychotic disturbance, mood disturbance, and anxiety Plan HPI: This is the first reported psychiatric admission for this 74 year old yyhrioj-[id number] female from [place], [place]. Patient was transferred from [facility] ED. 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 Patient has a diagnosis of dementia since 2017. She reportedly left the home in [place] and drove to [place] and then back to [place]. In [place] she parked at a fire station and told 2 men there she was lost and told them her BF was stealing money from her. They called the police and patient was taken to the ED. PLAN: - Admit to inpatient psychiatry - CV - Collateral information from family and providers. - Milieu treatment and group therapy. - Medications: Continue OP regimen. - Social work evaluation. - Disposition planning. Hypertension Blood pressure has improved since arrival Patient will continue her amlodipine 5 mg daily Low-sodium diet Monitor blood pressure at least daily Tachycardia EKG requested, Sinus TACH 103, possible left atrial enlargement, Qtc 434 Suspect tachycardia secondary to patient's anxiety level Patient likely did not receive her propranolol per nursing at [facility], will order a 1 time dose of 40 mgs tonight Patient normally on propranolol 60 mg daily Patient is afebrile, no leukocytosis, UA negative at [place] Added BNP to AM labs, if elevated, may require echo Stomach cramps Continue Bentyl, chronic in presentation Patient follows with a specialist in the outpatient setting. Hospitalist consult placed today 03/12/25. Continue bowel regimen Monitor for constipation GERD Continue omeprazole Obesity Patient has made efforts to lose weight by not eating bagels or sugar Nutritional consult as needed 03/11: continue current management and treatment plan. 03/12/25: Slept well and have no issue with appetite. Focused on wanting to go home. She does not want to be here folate 30 days. Reviewed with patient criteria to get home, but need to be stabilized. Denies safety concerns, anxious but visible and pleasant upon approach. She is forgetful. 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 Also start on Memantine 5 mg daily for dementia Alzheimer. Continue with risperidone 0.5 b.i.d. p.r.n. agitation. 03/13/25: Doing well with medication changes and new Menantine. Slept through the night, was medication compliant, less focused on going home today. Feeling lonely , some anxiety but not depression I want to live . Denies safety concerns. [place] done today scored [place] 9/30. Indicating severe cognitive impairment with deficits in all domains except language. She also scored a 4.2 on the ACLS indicate moderate functional deficits and the need for 38% cognitive assistance for problem solving, safety and ADLs/ADLs completion and consistency. She was the same outfit as yesterday. Continue complain about stomach pain, on the right side. Denies trouble voiding. No burning sensation. Simethicone 80 mg q.i.d. HS with meal as needed for gas or heartburn. Hospitalist was notified that she has a consult order in. 03/14/2025 Patient anxious and dysphoric has been on memantine BuSpar Risperdal. Hospitalist service saw the patient for abdominal pain did not feel need for further workup at this time. Seems to be tolerating medication patient does states she hopes to live with a cousin if she is not able to live with her partner. 03/15/25: Reports trouble falling asleep, but has been eating okay. Denies side effects from medications. Observed visible on the unit, attended groups, no angry moments, feeling anxious. Denies safety concerns I never want to . I love my life . Reports the boyfriend will come visit her bringing her more clothes this week. Perseverative on abdominal pain which she knows that is the chronic issues. Confirmed with her that she does not need antibiotic per hospitalist who saw her the day before. She thinks that she needs to be on antibiotic as she did the research in the past with the recommendation that she should be on antibiotic. Denies other safety concerns. Melatonin 6 mg at bedtime for sleep (reported that she takes 5 mg [id number] at home) 03/16/25 Pt with unrealistic expectations cont melatonin buspar can in [place] target mood behavior cognition consider rlower risp 03/17/25 CTP 03/18/25 ongoing confusion, mostly pleasant perseverative on abd pain- CTP Patient educated on: medical condition Informed Consent: does not understand Reason for continued inpatient stay Substantial Risk for: inability to function and rapid decompensation Time Spent With Patient Time: Total time managing care of this patient today ____ minutes.
[2025-03-18 20:00] VITALS: BP 136/70; PULSE 67; RESP 16; TEMP 36.5; O2SAT 97
[2025-03-19 08:00] VITALS: BP 116/61; PULSE 60; RESP 16; TEMP 36.5; O2SAT 96
[2025-03-19 08:27] VITALS: BP 116/61; PULSE 60
[2025-03-19] MEDS: Propranolol HCL LA 60 MG CAP.SA.24H PO (08:27)
[2025-03-19] MEDS: Magnesium Hydrox/Alum Hydrox 30 ML ORAL.SUSP PO (12:29)
[2025-03-19 19:59] VITALS: BP 124/61; PULSE 61; RESP 16; TEMP 36.7; O2SAT 97
[2025-03-20 08:08] VITALS: BP 124/56; PULSE 62; RESP 20; TEMP 36.2; O2SAT 99
[2025-03-20] MEDS: Propranolol HCL LA 60 MG CAP.SA.24H PO (08:10)
--- NOTE | 2025-03-20 09:33 | HO.PSYCHPN ---
Subjective Subjective Date of Service: 03/19/25 Reason For Visit: Unspecified psychosis Dementia w/ behavioral distu Subjective Notes: Conditional Voluntary Healthcare Proxy: Yes Interim History: pt seen in f/u 03/19/25 is anxious preoccupied worried about future Mental Status Exam Mental Status Exam Patient Appearance: Well Grooomed and Appropriate Patient Orientation: Person and Place Level of Consciousness: Awake and Alert Patient Behavior: Cooperative, Invasion - Personal Space (only verbally not physically- boundaries), Distractible and Good Eye Contact Mood Description: Anxious Affect Description: Apprehensive Patient Cognition Impaired: Yes Ability to Follow Directions: Fair Speech Pattern: Clear Thought Process: Confusion Thought Content: positive for [place] Judgement: Poor Judgement and Insight: no insight into impairment Diagnostics Vital Signs (24Hr): Vital Signs - 24 hr 03/19/25 19:59 03/20/25 08:08 Temperature 98.1 F 97.2 F Pulse Rate 61 62 Respiratory Rate 16 20 Blood Pressure 124/61 124/56 L Pulse Oximetry 97 99 Oxygen Delivery Method Room Air Room Air BMI result Body Mass Index 35.1 Labs 03/10/25 07:41 Medications Medications Current Medications Acetaminophen (Acetaminophen 325 Mg Tablet) 650 mg PO Q6H PRN PRN Reason: Headache/Pain, Scale 1-10 Last Admin: 03/16/25 11:27 Dose: 650 mg Al Hydroxide/Mg Hydroxide (Magnesium Hydrox/Alum Hydrox 30 Ml Oral.Susp) 30 ml PO Q6H PRN PRN Reason: Heartburn/Nausea Last Admin: 03/19/25 12:29 Dose: 30 ml Amlodipine Besylate (Amlodipine Besylate 5 Mg Tablet) 5 mg PO DAILY [facility]; Protocol Last Admin: 03/20/25 08:09 Dose: 5 mg Buspirone HCl (Buspirone Hcl 5 Mg Tablet) 15 mg PO BID [facility] Last Admin: 03/20/25 08:11 Dose: 15 mg Dicyclomine HCl (Dicyclomine Hcl 10 Mg Capsule) 20 mg PO BID [facility] Last Admin: 03/20/25 08:10 Dose: 20 mg Hydroxyzine HCl (Hydroxyzine Hcl 25 Mg Tablet) 25 mg PO Q6H PRN PRN Reason: mild anxiety Last Admin: 03/19/25 20:21 Dose: 25 mg Magnesium Hydroxide (Milk Of Magnesia 30 Ml Oral.Susp) 30 ml PO DAILY PRN PRN Reason: Constipation Melatonin (Melatonin 3 Mg Tablet) 6 mg PO BEDTIME [facility] Last Admin: 03/19/25 20:21 Dose: 6 mg Memantine (Memantine Hcl 5 Mg Tablet) 5 mg PO DAILY [facility] Last Admin: 03/20/25 08:12 Dose: 5 mg Nicotine Polacrilex (Nicotine Polacrilex 2 Mg Gum) 2 mg BUCCAL Q2H PRN PRN Reason: Nicotine Cravings Omeprazole (Omeprazole 20 Mg Capsule.Dr) 20 mg PO DAILY [facility] Last Admin: 03/20/25 08:10 Dose: 20 mg Propranolol HCl (Propranolol Hcl La 60 Mg Cap.Sa.24h) 60 mg PO DAILY [facility]; Protocol Last Admin: 03/20/25 08:10 Dose: 60 mg Risperidone (Risperidone 0.5 Mg Tablet) 0.5 mg PO BID PRN PRN Reason: agitation Risperidone (Risperidone 1 Mg Tablet) 1 mg PO BID [facility] Last Admin: 03/20/25 08:10 Dose: 1 mg Simethicone (Simethicone 80 Mg Tab.Chew) 80 mg PO QIDWMHS PRN PRN Reason: gas/Heart burn Last Admin: 03/19/25 12:29 Dose: 80 mg Trazodone HCl (Trazodone Hcl 50 Mg Tablet) 50 mg PO BEDTIME MRX1 PRN PRN Reason: Insomnia Last Admin: 03/19/25 20:21 Dose: 50 mg Allergies Allergies Allergy/AdvReac Type Severity Reaction Status Date / Time Sulfa (Sulfonamide Allergy Severe Rash Verified 03/09/25 20:52 Antibiotics) Assessment & Plan Assessment & Plan (1) Alzheimer's dementia: Qualifiers: Alzheimer's disease onset: unspecified onset Dementia behavioral or psychological symptom: with anxiety Dementia severity: unspecified severity Qualified Code(s): G30.9 - Alzheimer's disease, unspecified; F02.84 - Dementia in other diseases classified elsewhere, unspecified severity, with anxiety Status: Acute Code(s): G30.9 - Alzheimer's disease, unspecified; F02.80 - Dementia in other diseases classified elsewhere, unspecified severity, without behavioral disturbance, psychotic disturbance, mood disturbance, and anxiety Plan HPI: This is the first reported psychiatric admission for this 74 year old [id number] female from [place], [place]. Patient was transferred from [facility] ED. Information was obtained from patient who isn't a reliable community health nurse staff due to her cognitive limitations and noted confabulation and the ED psychiatric consultation records from [facility]. Patient has a diagnosis of dementia since 2017. She reportedly left the home in [place] and drove to [place] and then back to [place]. In [place] she parked at a fire station and told 2 men there she was lost and told them her BF was stealing money from her. They called the police and patient was taken to the ED. PLAN: - Admit to inpatient psychiatry - CV - Collateral information from family and providers. - Milieu treatment and group therapy. - Medications: Continue OP regimen. - Social work evaluation. - Disposition planning. Hypertension Blood pressure has improved since arrival Patient will continue her amlodipine 5 mg daily Low-sodium diet Monitor blood pressure at least daily Tachycardia EKG requested, Sinus TACH 103, possible left atrial enlargement, Qtc 434 Suspect tachycardia secondary to patient's anxiety level Patient likely did not receive her propranolol per nursing at [facility], will order a 1 time dose of 40 mgs tonight Patient normally on propranolol 60 mg daily Patient is afebrile, no leukocytosis, UA negative at [place] Added BNP to AM labs, if elevated, may require echo Stomach cramps Continue Bentyl, chronic in presentation Patient follows with a specialist in the outpatient setting. Hospitalist consult placed today 03/12/25. Continue bowel regimen Monitor for constipation GERD Continue omeprazole Obesity Patient has made efforts to lose weight by not eating bagels or sugar Nutritional consult as needed 03/11: continue current management and treatment plan. 03/12/25: Slept well and have no issue with appetite. Focused on wanting to go home. She does not want to be here folate 30 days. Reviewed with patient criteria to get home, but need to be stabilized. Denies safety concerns, anxious but visible and pleasant upon approach. She is forgetful. 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 Also start on Memantine 5 mg daily for dementia Alzheimer. Continue with risperidone 0.5 b.i.d. p.r.n. agitation. 03/13/25: Doing well with medication changes and new Menantine. Slept through the night, was medication compliant, less focused on going home today. Feeling lonely , some anxiety but not depression I want to live . Denies safety concerns. Williams done today scored Williams 9/30. Indicating severe cognitive impairment with deficits in all domains except language. She also scored a 4.2 on the ACLS indicate moderate functional deficits and the need for 38% cognitive assistance for problem solving, safety and ADLs/ADLs completion and consistency. She was the same outfit as yesterday. Continue complain about stomach pain, on the right side. Denies trouble voiding. No burning sensation. Simethicone 80 mg q.i.d. HS with meal as needed for gas or heartburn. Hospitalist was notified that she has a consult order in. 03/14/2025 Patient anxious and dysphoric has been on memantine BuSpar Risperdal. Hospitalist service saw the patient for abdominal pain did not feel need for further workup at this time. Seems to be tolerating medication patient does states she hopes to live with a cousin if she is not able to live with her partner. 03/15/25: Reports trouble falling asleep, but has been eating okay. Denies side effects from medications. Observed visible on the unit, attended groups, no angry moments, feeling anxious. Denies safety concerns I never want to . I love my life . Reports the boyfriend will come visit her bringing her more clothes this week. Perseverative on abdominal pain which she knows that is the chronic issues. Confirmed with her that she does not need antibiotic per hospitalist who saw her the day before. She thinks that she needs to be on antibiotic as she did the research in the past with the recommendation that she should be on antibiotic. Denies other safety concerns. Melatonin 6 mg at bedtime for sleep (reported that she takes 5 mg [id number] at home) 03/16/25 Pt with unrealistic expectations cont melatonin buspar can in [place] target mood behavior cognition consider rlower risp 03/17/25 CTP 03/18/25 ongoing confusion, mostly pleasant perseverative on abd pain- CTP 03/19/25 can inc [place] work with partner regarding return home vs placement Reason for continued inpatient stay Substantial Risk for: inability to function, rapid decompensation and med/psych decompensation Time Spent With Patient Time: Total time managing care of this patient today ____ minutes.
--- NOTE | 2025-03-20 09:51 | HO.PSYCHPN ---
Subjective Subjective Date of Service: 03/20/25 Reason For Visit: Unspecified psychosis Dementia w/ behavioral distu Subjective Notes: Conditional Voluntary Interim History: Pt anxious aware she has alz disease upset over being in hosp has been cooperative social on unit. Partner has not wanted her to return home secondary to condition Medication Compliance: Yes Mental Status Exam Mental Status Exam Patient Appearance: Well Grooomed and Appropriate Patient Orientation: Person Level of Consciousness: Awake and Alert Patient Behavior: Cooperative, Invasion - Personal Space (only verbally not physically- boundaries), Distractible and Good Eye Contact Mood Description: Anxious Affect Description: Apprehensive Patient Cognition Impaired: Yes Ability to Follow Directions: Fair Speech Pattern: Clear Thought Process: Confusion Thought Content: positive for [place] Judgement: Poor Judgement and Insight: no insight into impairment Diagnostics Vital Signs (24Hr): Vital Signs - 24 hr 03/19/25 19:59 03/20/25 08:08 Temperature 98.1 F 97.2 F Pulse Rate 61 62 Respiratory Rate 16 20 Blood Pressure 124/61 124/56 L Pulse Oximetry 97 99 Oxygen Delivery Method Room Air Room Air BMI result Body Mass Index 35.1 Labs 03/10/25 07:41 Medications Medications Current Medications Acetaminophen (Acetaminophen 325 Mg Tablet) 650 mg PO Q6H PRN PRN Reason: Headache/Pain, Scale 1-10 Last Admin: 03/16/25 11:27 Dose: 650 mg Al Hydroxide/Mg Hydroxide (Magnesium Hydrox/Alum Hydrox 30 Ml Oral.Susp) 30 ml PO Q6H PRN PRN Reason: Heartburn/Nausea Last Admin: 03/19/25 12:29 Dose: 30 ml Amlodipine Besylate (Amlodipine Besylate 5 Mg Tablet) 5 mg PO DAILY [facility]; Protocol Last Admin: 03/20/25 08:09 Dose: 5 mg Buspirone HCl (Buspirone Hcl 5 Mg Tablet) 15 mg PO BID [facility] Last Admin: 03/20/25 08:11 Dose: 15 mg Dicyclomine HCl (Dicyclomine Hcl 10 Mg Capsule) 20 mg PO BID [facility] Last Admin: 03/20/25 08:10 Dose: 20 mg Hydroxyzine HCl (Hydroxyzine Hcl 25 Mg Tablet) 25 mg PO Q6H PRN PRN Reason: mild anxiety Last Admin: 03/19/25 20:21 Dose: 25 mg Magnesium Hydroxide (Milk Of Magnesia 30 Ml Oral.Susp) 30 ml PO DAILY PRN PRN Reason: Constipation Melatonin (Melatonin 3 Mg Tablet) 6 mg PO BEDTIME [facility] Last Admin: 03/19/25 20:21 Dose: 6 mg Memantine (Memantine Hcl 5 Mg Tablet) 5 mg PO BID [facility] Nicotine Polacrilex (Nicotine Polacrilex 2 Mg Gum) 2 mg BUCCAL Q2H PRN PRN Reason: Nicotine Cravings Omeprazole (Omeprazole 20 Mg Capsule.Dr) 20 mg PO DAILY [facility] Last Admin: 03/20/25 08:10 Dose: 20 mg Propranolol HCl (Propranolol Hcl La 60 Mg Cap.Sa.24h) 60 mg PO DAILY [facility]; Protocol Last Admin: 03/20/25 08:10 Dose: 60 mg Risperidone (Risperidone 0.5 Mg Tablet) 0.5 mg PO BID PRN PRN Reason: agitation Risperidone (Risperidone 1 Mg Tablet) 1 mg PO BID [facility] Last Admin: 03/20/25 08:10 Dose: 1 mg Simethicone (Simethicone 80 Mg Tab.Chew) 80 mg PO QIDWMHS PRN PRN Reason: gas/Heart burn Last Admin: 03/19/25 12:29 Dose: 80 mg Trazodone HCl (Trazodone Hcl 50 Mg Tablet) 50 mg PO BEDTIME MRX1 PRN PRN Reason: Insomnia Last Admin: 03/19/25 20:21 Dose: 50 mg Allergies Allergies Allergy/AdvReac Type Severity Reaction Status Date / Time Sulfa (Sulfonamide Allergy Severe Rash Verified 03/09/25 20:52 Antibiotics) Assessment & Plan Assessment & Plan (1) Alzheimer's dementia: Qualifiers: Alzheimer's disease onset: unspecified onset Dementia behavioral or psychological symptom: with anxiety Dementia severity: unspecified severity Qualified Code(s): G30.9 - Alzheimer's disease, unspecified; F02.84 - Dementia in other diseases classified elsewhere, unspecified severity, with anxiety Status: Acute Code(s): G30.9 - Alzheimer's disease, unspecified; F02.80 - Dementia in other diseases classified elsewhere, unspecified severity, without behavioral disturbance, psychotic disturbance, mood disturbance, and anxiety Assessment and Plan: cont memantine unclear discharge plan Plan HPI: This is the first reported psychiatric admission for this 74 year old [id number] female from [place], [place]. Patient was transferred from [facility] ED. Information was obtained from patient who isn't a reliable academic advising director due to her cognitive limitations and noted confabulation and the ED psychiatric consultation records from [facility]. Patient has a diagnosis of dementia since 2017. She reportedly left the home in [place] and drove to [place] and then back to [place]. In [place] she parked at a fire station and told 2 men there she was lost and told them her BF was stealing money from her. They called the police and patient was taken to the ED. PLAN: - Admit to inpatient psychiatry - CV - Collateral information from family and providers. - Milieu treatment and group therapy. - Medications: Continue OP regimen. - Social work evaluation. - Disposition planning. Hypertension Blood pressure has improved since arrival Patient will continue her amlodipine 5 mg daily Low-sodium diet Monitor blood pressure at least daily Tachycardia EKG requested, Sinus TACH 103, possible left atrial enlargement, Qtc 434 Suspect tachycardia secondary to patient's anxiety level Patient likely did not receive her propranolol per nursing at [facility], will order a 1 time dose of 40 mgs tonight Patient normally on propranolol 60 mg daily Patient is afebrile, no leukocytosis, UA negative at [place] Added BNP to AM labs, if elevated, may require echo Stomach cramps Continue Bentyl, chronic in presentation Patient follows with a specialist in the outpatient setting. Hospitalist consult placed today 03/12/25. Continue bowel regimen Monitor for constipation GERD Continue omeprazole Obesity Patient has made efforts to lose weight by not eating bagels or sugar Nutritional consult as needed 03/11: continue current management and treatment plan. 03/12/25: Slept well and have no issue with appetite. Focused on wanting to go home. She does not want to be here folate 30 days. Reviewed with patient criteria to get home, but need to be stabilized. Denies safety concerns, anxious but visible and pleasant upon approach. She is forgetful. 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 Also start on Memantine 5 mg daily for dementia Alzheimer. Continue with risperidone 0.5 b.i.d. p.r.n. agitation. 03/13/25: Doing well with medication changes and new Menantine. Slept through the night, was medication compliant, less focused on going home today. Feeling lonely , some anxiety but not depression I want to live . Denies safety concerns. Cameron done today scored Cameron 9/30. Indicating severe cognitive impairment with deficits in all domains except language. She also scored a 4.2 on the ACLS indicate moderate functional deficits and the need for 38% cognitive assistance for problem solving, safety and ADLs/ADLs completion and consistency. She was the same outfit as yesterday. Continue complain about stomach pain, on the right side. Denies trouble voiding. No burning sensation. Simethicone 80 mg q.i.d. HS with meal as needed for gas or heartburn. Hospitalist was notified that she has a consult order in. 03/14/2025 Patient anxious and dysphoric has been on memantine BuSpar Risperdal. Hospitalist service saw the patient for abdominal pain did not feel need for further workup at this time. Seems to be tolerating medication patient does states she hopes to live with a cousin if she is not able to live with her partner. 03/15/25: Reports trouble falling asleep, but has been eating okay. Denies side effects from medications. Observed visible on the unit, attended groups, no angry moments, feeling anxious. Denies safety concerns I never want to . I love my life . Reports the boyfriend will come visit her bringing her more clothes this week. Perseverative on abdominal pain which she knows that is the chronic issues. Confirmed with her that she does not need antibiotic per hospitalist who saw her the day before. She thinks that she needs to be on antibiotic as she did the research in the past with the recommendation that she should be on antibiotic. Denies other safety concerns. Melatonin 6 mg at bedtime for sleep (reported that she takes 5 mg [id number]-overhor at home) 03/16/25 Pt with unrealistic expectations cont melatonin buspar can in [place] target mood behavior cognition consider rlower risp 03/17/25 CTP 03/18/25 ongoing confusion, mostly pleasant perseverative on abd pain- CTP 03/19/25 can inc [place] work with partner regarding return home vs placement 03/20/25 working on safe d/c planning partner feels unable to manage cont risp [place] risperadol coord with family Reason for continued inpatient stay Substantial Risk for: inability to function and rapid decompensation Time Spent With Patient Time: Total time managing care of this patient today ____ minutes.
[2025-03-20 20:00] VITALS: BP 129/68; PULSE 66; RESP 16; TEMP 36.6; O2SAT 98
[2025-03-21 08:00] VITALS: BP 112/63; PULSE 77; RESP 16; TEMP 36.6; O2SAT 97
[2025-03-21 08:33] VITALS: BP 112/63; PULSE 77
[2025-03-21] MEDS: Propranolol HCL LA 60 MG CAP.SA.24H PO (08:33)
--- NOTE | 2025-03-21 09:51 | HO.HCP ---
Health Care Proxy Invocation Health Care Proxy Declaration: I, _Demetri South MD , on the date cited below, have determined that, _Nancy Jimenez , lacks the capacity to make or communicate, informed health care decision. This determination is made in accordance with accepted standards of medical judgment and pursuant to [place] 201[place], the [place] Health Care Proxy Law. The cause, nature, extent and probable duration of the patient's inapacity are described below: Cause:Alzheimer disease Nature:neurodegenerative progressive disease Extent:cannot remember information take it in and make reasonable judgements Probable Duration of Patient's Incapacity:permanent
[2025-03-21] MEDS: Magnesium Hydrox/Alum Hydrox 30 ML ORAL.SUSP PO (11:57)
--- NOTE | 2025-03-21 14:08 | P.PNPSI_ITS ---
Subjective Subjective Date of Service: 03/21/25 Reason For Visit: Unspecified psychosis Dementia w/ behavioral distu Subjective Notes: Conditional Voluntary Healthcare Proxy: Yes Interim History: Patient's case reviewed in treatment planning chart reviewed patient seen. Healthcare proxy has been invoked. Patient's long-term partner has been participating in discharge planning patient's social in the milieu some periods of anxiety ability frequent reassurance Medication Compliance: Yes Mental Status Exam Mental Status Exam Patient Appearance: Well Grooomed and Appropriate Patient Orientation: Person Level of Consciousness: Awake and Alert Patient Behavior: Cooperative, Distractible and Good Eye Contact Mood Description: Anxious Affect Description: Apprehensive Patient Cognition Impaired: Yes Ability to Follow Directions: Fair Speech Pattern: Clear Memory Description: Episodic Impaired and Immediate Intact Hallucinations: None Thought Process: Confusion Thought Content: positive for [place] Judgement: Poor Judgement and Insight: no insight into impairment Diagnostics Vital Signs (24Hr): Vital Signs - 24 hr 03/20/25 20:00 03/21/25 08:00 03/21/25 08:33 Temperature 97.8 F 97.8 F Pulse Rate 66 77 Respiratory Rate 16 16 Blood Pressure 129/68 112/63 112/63 Pulse Oximetry 98 97 Oxygen Delivery Method Room Air Room Air 03/21/25 08:33 Temperature Pulse Rate 77 Respiratory Rate Blood Pressure 112/63 Pulse Oximetry Oxygen Delivery Method BMI result Body Mass Index 35.1 Labs 03/10/25 07:41 Medications Medications Current Medications Acetaminophen (Acetaminophen 325 Mg Tablet) 650 mg PO Q6H PRN PRN Reason: Headache/Pain, Scale 1-10 Last Admin: 03/16/25 11:27 Dose: 650 mg Al Hydroxide/Mg Hydroxide (Magnesium Hydrox/Alum Hydrox 30 Ml Oral.Susp) 30 ml PO Q6H PRN PRN Reason: Heartburn/Nausea Last Admin: 03/21/25 11:57 Dose: 30 ml Amlodipine Besylate (Amlodipine Besylate 5 Mg Tablet) 5 mg PO DAILY [facility]; Protocol Last Admin: 03/21/25 08:33 Dose: 5 mg Buspirone HCl (Buspirone Hcl 5 Mg Tablet) 15 mg PO BID [facility] Last Admin: 03/21/25 08:34 Dose: 15 mg Dicyclomine HCl (Dicyclomine Hcl 10 Mg Capsule) 20 mg PO BID [facility] Last Admin: 03/21/25 08:33 Dose: 20 mg Hydroxyzine HCl (Hydroxyzine Hcl 25 Mg Tablet) 25 mg PO Q6H PRN PRN Reason: mild anxiety Last Admin: 03/20/25 20:56 Dose: 25 mg Magnesium Hydroxide (Milk Of Magnesia 30 Ml Oral.Susp) 30 ml PO DAILY PRN PRN Reason: Constipation Melatonin (Melatonin 3 Mg Tablet) 6 mg PO BEDTIME [facility] Last Admin: 03/20/25 20:56 Dose: 6 mg Memantine (Memantine Hcl 5 Mg Tablet) 5 mg PO BID [facility] Last Admin: 03/21/25 08:33 Dose: 5 mg Nicotine Polacrilex (Nicotine Polacrilex 2 Mg Gum) 2 mg BUCCAL Q2H PRN PRN Reason: Nicotine Cravings Omeprazole (Omeprazole 20 Mg Capsule.Dr) 20 mg PO DAILY [facility] Last Admin: 03/21/25 08:33 Dose: 20 mg Propranolol HCl (Propranolol Hcl La 60 Mg Cap.Sa.24h) 60 mg PO DAILY [facility]; Protocol Last Admin: 03/21/25 08:33 Dose: 60 mg Risperidone (Risperidone 0.5 Mg Tablet) 0.5 mg PO BID PRN PRN Reason: agitation Risperidone (Risperidone 1 Mg Tablet) 1 mg PO BID [facility] Last Admin: 03/21/25 08:34 Dose: 1 mg Simethicone (Simethicone 80 Mg Tab.Chew) 80 mg PO QIDWMHS PRN PRN Reason: gas/Heart burn Last Admin: 03/21/25 11:57 Dose: 80 mg Trazodone HCl (Trazodone Hcl 50 Mg Tablet) 50 mg PO BEDTIME MRX1 PRN PRN Reason: Insomnia Last Admin: 03/20/25 20:56 Dose: 50 mg Allergies Allergies Allergy/AdvReac Type Severity Reaction Status Date / Time Sulfa (Sulfonamide Allergy Severe Rash Verified 03/09/25 20:52 Antibiotics) Assessment & Plan Assessment & Plan (1) Alzheimer's dementia: Qualifiers: Alzheimer's disease onset: unspecified onset Dementia behavioral or psychological symptom: with anxiety Dementia severity: unspecified severity Q ualified Code(s): G30.9 - Alzheimer's disease, unspecified; F02.84 - Dementia in other diseases classified elsewhere, unspecified severity, with anxiety Status: Acute Code(s): G30.9 - Alzheimer's disease, unspecified; F02.80 - Dementia in other diseases classified elsewhere, unspecified severity, without behavioral disturbance, psychotic disturbance, mood disturbance, and anxiety Assessment and Plan: cont memantine unclear discharge plan Plan HPI: This is the first reported psychiatric admission for this 74 year old [id number] female from [place], [place]. Patient was transferred from [facility] ED. Information was obtained from patient who isn't a reliable talent program manager due to her cognitive limitations and noted confabulation and the ED psychiatric consultation records from [facility]. Patient has a diagnosis of dementia since 2017. She reportedly left the home in [place] and drove to [place] and then back to [place]. In [place] she parked at a fire station and told 2 men there she was lost and told them her BF was stealing money from her. They called the police and patient was taken to the ED. PLAN: - Admit to inpatient psychiatry - CV - Collateral information from family and providers. - Milieu treatment and group therapy. - Medications: Continue OP regimen. - Social work evaluation. - Disposition planning. Hypertension Blood pressure has improved since arrival Patient will continue her amlodipine 5 mg daily Low-sodium diet Monitor blood pressure at least daily Tachycardia EKG requested, Sinus TACH 103, possible left atrial enlargement, Qtc 434 Suspect tachycardia secondary to patient's anxiety level Patient likely did not receive her propranolol per nursing at [facility], will order a 1 time dose of 40 mgs tonight Patient normally on propranolol 60 mg daily Patient is afebrile, no leukocytosis, UA negative at [place] Added BNP to AM labs, if elevated, may require echo Stomach cramps Continue Bentyl, chronic in presentation Patient follows with a specialist in the outpatient setting. Hospitalist consult placed today 03/12/25. Continue bowel regimen Monitor for constipation GERD Continue omeprazole Obesity Patient has made efforts to lose weight by not eating bagels or sugar Nutritional consult as needed 03/11: continue current management and treatment plan. 03/12/25: Slept well and have no issue with appetite. Focused on wanting to go home. She does not want to be here folate 30 days. Reviewed with patient criteria to get home, but need to be stabilized. Denies safety concerns, anxious but visible and pleasant upon approach. She is forgetful. 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 Also start on Memantine 5 mg daily for dementia Alzheimer. Continue with risperidone 0.5 b.i.d. p.r.n. agitation. 03/13/25: Doing well with medication changes and new Menantine. Slept through the night, was medication compliant, less focused on going home today. Feeling lonely , some anxiety but not depression I want to live . Denies safety concerns. Orange done today scored Orange 9/30. Indicating severe cognitive impairment with deficits in all domains except language. She also scored a 4.2 on the ACLS indicate moderate functional deficits and the need for 38% cognitive assistance for problem solving, safety and ADLs/ADLs completion and consistency. She was the same outfit as yesterday. Continue complain about stomach pain, on the right side. Denies trouble voiding. No burning sensation. Simethicone 80 mg q.i.d. HS with meal as needed for gas or heartburn. Hospitalist was notified that she has a consult order in. 03/14/2025 Patient anxious and dysphoric has been on memantine BuSpar Risperdal. Hospitalist service saw the patient for abdominal pain did not feel need for further workup at this time. Seems to be tolerating medication patient does states she hopes to live with a cousin if she is not able to live with her partner. 03/15/25: Reports trouble falling asleep, but has been eating okay. Denies side effects from medications. Observed visible on the unit, attended groups, no angry moments, feeling anxious. Denies safety concerns I never want to . I love my life . Reports the boyfriend will come visit her bringing her more clothes this week. Perseverative on abdominal pain which she knows that is the chronic issues. Confirmed with her that she does not need antibiotic per hospitalist who saw her the day before. She thinks that she needs to be on antibiotic as she did the research in the past with the recommendation that she should be on antibiotic. Denies other safety concerns. Melatonin 6 mg at bedtime for sleep (reported that she takes 5 mg [id number] at home) 03/16/25 Pt with unrealistic expectations cont melatonin buspar can in [place] target mood behavior cognition consider rlower risp 03/17/25 CTP 03/18/25 ongoing confusion, mostly pleasant perseverative on abd pain- CTP 03/19/25 can inc [place] work with partner regarding return home vs placement 03/20/25 working on safe d/c planning partner feels unable to manage cont risp [place] risperadol coord with family 03/21/2025 Continue plan of care discharge planning PT consult continue Risperdal Reason for continued inpatient stay Substantial Risk for: inability to function, rapid decompensation and med/psych decompensation Time Spent With Patient Time: Total time managing care of this patient today ____ minutes.
[2025-03-21 20:00] VITALS: BP 144/76; PULSE 65; RESP 18; TEMP 36.7; O2SAT 97
[2025-03-22 08:15] VITALS: BP 125/58; PULSE 71; RESP 18; TEMP 36.4; O2SAT 96
[2025-03-22] MEDS: Propranolol HCL LA 60 MG CAP.SA.24H PO (08:18)
[2025-03-22 15:23] VITALS: BMI 35.6
[2025-03-22 20:00] VITALS: BP 141/67; PULSE 63; RESP 18; TEMP 36.9; O2SAT 97
--- NOTE | 2025-03-22 23:34 | P.PNPSI_ITS ---
Subjective Subjective Date of Service: 03/22/25 Reason For Visit: Unspecified psychosis Dementia w/ behavioral distu Subjective Notes: Conditional Voluntary Healthcare Proxy: Yes Interim History: Patient's case reviewed in treatment planning chart reviewed patient seen. Patient cooperative in the milieu sleep and appetite adequate. Anxious regarding discharge issues Mental Status Exam Mental Status Exam Patient Appearance: Well Grooomed and Appropriate Patient Orientation: Person Level of Consciousness: Awake and Alert Patient Behavior: Cooperative, Distractible and Good Eye Contact Mood Description: Anxious Affect Description: Apprehensive Patient Cognition Impaired: Yes Ability to Follow Directions: Fair Speech Pattern: Clear Memory Description: Episodic Impaired and Immediate Intact Hallucinations: None Thought Process: Confusion Thought Content: positive for [place] Judgement: Poor Judgement and Insight: no insight into impairment Diagnostics Vital Signs (24Hr): Vital Signs - 24 hr 03/22/25 08:15 03/22/25 20:00 Temperature 97.6 F 98.5 F Pulse Rate 71 63 Respiratory Rate 18 18 Blood Pressure 125/58 L 141/67 H Pulse Oximetry 96 97 Oxygen Delivery Method Room Air Room Air BMI result Body Mass Index 35.6 Labs 03/10/25 07:41 Medications Medications Current Medications Acetaminophen (Acetaminophen 325 Mg Tablet) 650 mg PO Q6H PRN PRN Reason: Headache/Pain, Scale 1-10 Last Admin: 03/16/25 11:27 Dose: 650 mg Al Hydroxide/Mg Hydroxide (Magnesium Hydrox/Alum Hydrox 30 Ml Oral.Susp) 30 ml PO Q6H PRN PRN Reason: Heartburn/Nausea Last Admin: 03/21/25 11:57 Dose: 30 ml Amlodipine Besylate (Amlodipine Besylate 5 Mg Tablet) 5 mg PO DAILY [facility]; Protocol Last Admin: 03/22/25 08:18 Dose: 5 mg Buspirone HCl (Buspirone Hcl 5 Mg Tablet) 15 mg PO BID [facility] Last Admin: 03/22/25 20:19 Dose: 15 mg Dicyclomine HCl (Dicyclomine Hcl 10 Mg Capsule) 20 mg PO BID [facility] Last Admin: 03/22/25 20:19 Dose: 20 mg Hydroxyzine HCl (Hydroxyzine Hcl 25 Mg Tablet) 25 mg PO Q6H PRN PRN Reason: mild anxiety Last Admin: 03/20/25 20:56 Dose: 25 mg Magnesium Hydroxide (Milk Of Magnesia 30 Ml Oral.Susp) 30 ml PO DAILY PRN PRN Reason: Constipation Melatonin (Melatonin 3 Mg Tablet) 6 mg PO BEDTIME [facility] Last Admin: 03/22/25 20:18 Dose: 6 mg Memantine (Memantine Hcl 5 Mg Tablet) 5 mg PO BID [facility] Last Admin: 03/22/25 20:19 Dose: 5 mg Nicotine Polacrilex (Nicotine Polacrilex 2 Mg Gum) 2 mg BUCCAL Q2H PRN PRN Reason: Nicotine Cravings Omeprazole (Omeprazole 20 Mg Capsule.Dr) 20 mg PO DAILY [facility] Last Admin: 03/22/25 08:18 Dose: 20 mg Propranolol HCl (Propranolol Hcl La 60 Mg Cap.Sa.24h) 60 mg PO DAILY [facility]; Protocol Last Admin: 03/22/25 08:18 Dose: 60 mg Risperidone (Risperidone 0.5 Mg Tablet) 0.5 mg PO BID PRN PRN Reason: agitation Risperidone (Risperidone 1 Mg Tablet) 1 mg PO BID [facility] Last Admin: 03/22/25 20:18 Dose: 1 mg Simethicone (Simethicone 80 Mg Tab.Chew) 80 mg PO QIDWMHS PRN PRN Reason: gas/Heart burn Last Admin: 03/22/25 12:02 Dose: 80 mg Trazodone HCl (Trazodone Hcl 50 Mg Tablet) 50 mg PO BEDTIME MRX1 PRN PRN Reason: Insomnia Last Admin: 03/20/25 20:56 Dose: 50 mg Allergies Allergies Allergy/AdvReac Type Severity Reaction Status Date / Time Sulfa (Sulfonamide Allergy Severe Rash Verified 03/09/25 20:52 Antibiotics) Assessment & Plan Assessment & Plan (1) Alzheimer's dementia: Qualifiers: Alzheimer's disease onset: unspecified onset Dementia severity: u nspecified severity Dementia behavioral or psychological symptom: with anxiety Qualified Code(s): G30.9 - Alzheimer's disease, unspecified; F02.84 - Dementia in other diseases classified elsewhere, unspecified severity, with anxiety Status: Acute Code(s): G30.9 - Alzheimer's disease, unspecified; F02.80 - Dementia in other diseases classified elsewhere, unspecified severity, without behavioral disturbance, psychotic disturbance, mood disturbance, and anxiety Assessment and Plan: cont memantine unclear discharge plan Plan HPI: This is the first reported psychiatric admission for this 74 year old [id number] female from [place], [place]. Patient was transferred from [facility] ED. Information was obtained from patient who isn't a reliable zone maintenance technician due to her cognitive limitations and noted confabulation and the ED psychiatric consultation records from [facility]. Patient has a diagnosis of dementia since 2017. She reportedly left the home in [place] and drove to [place] and then back to [place]. In [place] she parked at a fire station and told 2 men there she was lost and told them her BF was stealing money from her. They called the police and patient was taken to the ED. PLAN: - Admit to inpatient psychiatry - CV - Collateral information from family and providers. - Milieu treatment and group therapy. - Medications: Continue OP regimen. - Social work evaluation. - Disposition planning. Hypertension Blood pressure has improved since arrival Patient will continue her amlodipine 5 mg daily Low-sodium diet Monitor blood pressure at least daily Tachycardia EKG requested, Sinus TACH 103, possible left atrial enlargement, Qtc 434 Suspect tachycardia secondary to patient's anxiety level Patient likely did not receive her propranolol per nursing at [facility], will order a 1 time dose of 40 mgs tonight Patient normally on propranolol 60 mg daily Patient is afebrile, no leukocytosis, UA negative at [place] Added BNP to AM labs, if elevated, may require echo Stomach cramps Continue Bentyl, chronic in presentation Patient follows with a specialist in the outpatient setting. Hospitalist consult placed today 03/12/25. Continue bowel regimen Monitor for constipation GERD Continue omeprazole Obesity Patient has made efforts to lose weight by not eating bagels or sugar Nutritional consult as needed 03/11: continue current management and treatment plan. 03/12/25: Slept well and have no issue with appetite. Focused on wanting to go home. She does not want to be here folate 30 days. Reviewed with patient criteria to get home, but need to be stabilized. Denies safety concerns, anxious but visible and pleasant upon approach. She is forgetful. 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 pattern layout worker to do collateral with the boyfriend/family Increase risperidone up to 1 mg twice a day. Also start on Memantine 5 mg daily for dementia Alzheimer. Continue with risperidone 0.5 b.i.d. p.r.n. agitation. 03/13/25: Doing well with medication changes and new Menantine. Slept through the night, was medication compliant, less focused on going home today. Feeling lonely , some anxiety but not depression I want to live . Denies safety concerns. [place] done today scored [place] 9/30. Indicating severe cognitive impairment with deficits in all domains except language. She also scored a 4.2 on the ACLS indicate moderate functional deficits and the need for 38% cognitive assistance for problem solving, safety and ADLs/ADLs completion and consistency. She was the same outfit as yesterday. Continue complain about stomach pain, on the right side. Denies trouble voiding. No burning sensation. Simethicone 80 mg q.i.d. HS with meal as needed for gas or heartburn. Hospitalist was notified that she has a consult order in. 03/14/2025 Patient anxious and dysphoric has been on memantine BuSpar Risperdal. Hospitalist service saw the patient for abdominal pain did not feel need for further workup at this time. Seems to be tolerating medication patient does states she hopes to live with a cousin if she is not able to live with her partner. 03/15/25: Reports trouble falling asleep, but has been eating okay. Denies side effects from medications. Observed visible on the unit, attended groups, no angry moments, feeling anxious. Denies safety concerns I never want to . I love my life . Reports the boyfriend will come visit her bringing her more clothes this week. Perseverative on abdominal pain which she knows that is the chronic issues. Confirmed with her that she does not need antibiotic per hospitalist who saw her the day before. She thinks that she needs to be on antibiotic as she did the research in the past with the recommendation that she should be on antibiotic. Denies other safety concerns. Melatonin 6 mg at bedtime for sleep (reported that she takes 5 mg [id number] at home) 03/16/25 Pt with unrealistic expectations cont melatonin buspar can in [place] target mood behavior cognition consider rlower risp 03/17/25 CTP 03/18/25 ongoing confusion, mostly pleasant perseverative on abd pain- CTP 03/19/25 can inc [place] work with partner regarding return home vs placement 03/20/25 working on safe d/c planning partner feels unable to manage cont risp [place] risperadol coord with family 03/21/2025 Continue plan of care discharge planning PT consult continue Risperdal 03/22/2025 Patient with some periods of anxiety irritability not combative. Discharge planning between patient's son and her partner who is healthcare proxy Reason for continued inpatient stay Substantial Risk for: inability to function, rapid decompensation and med/psych decompensation Time Spent With Patient Time: Total time managing care of this patient today ____ minutes.
[2025-03-23 08:12] VITALS: BP 104/59; PULSE 68; RESP 18; TEMP 36.5; O2SAT 97
[2025-03-23] MEDS: Propranolol HCL LA 60 MG CAP.SA.24H PO (08:15)
[2025-03-23 20:00] VITALS: BP 137/77; PULSE 60; RESP 16; TEMP 36.4; O2SAT 96
--- NOTE | 2025-03-23 23:40 | HO.PSYCHPN ---
Subjective Subjective Date of Service: 03/23/25 Reason For Visit: Unspecified psychosis Dementia w/ behavioral distu Subjective Notes: Conditional Voluntary Healthcare Proxy: Yes Interim History: Patient seen chart reviewed case reviewed in treatment planning. Patient social in the milieu confused but less irritable and agitated. Social with some peers Mental Status Exam Mental Status Exam Patient Appearance: Well Grooomed and Appropriate Patient Orientation: Person Level of Consciousness: Awake and Alert Patient Behavior: Cooperative, Distractible and Good Eye Contact Behavior Comments: Mood brighter superficially cheerful at times Affect Description: Appropriate and Apprehensive Patient Cognition Impaired: Yes Ability to Follow Directions: Fair Speech Pattern: Clear Memory Description: Episodic Impaired and Immediate Intact Hallucinations: None Thought Process: Confusion Thought Content: positive for [place] Judgement: Poor Judgement and Insight: no insight into impairment Diagnostics Vital Signs (24Hr): Vital Signs - 24 hr 03/23/25 08:12 03/23/25 20:00 Temperature 97.7 F 97.5 F Pulse Rate 68 60 Respiratory Rate 18 16 Blood Pressure 104/59 L 137/77 Pulse Oximetry 97 96 Oxygen Delivery Method Room Air Room Air BMI result Body Mass Index 35.6 Labs 03/10/25 07:41 Medications Medications Current Medications Acetaminophen (Acetaminophen 325 Mg Tablet) 650 mg PO Q6H PRN PRN Reason: Headache/Pain, Scale 1-10 Last Admin: 03/16/25 11:27 Dose: 650 mg Al Hydroxide/Mg Hydroxide (Magnesium Hydrox/Alum Hydrox 30 Ml Oral.Susp) 30 ml PO Q6H PRN PRN Reason: Heartburn/Nausea Last Admin: 03/21/25 11:57 Dose: 30 ml Amlodipine Besylate (Amlodipine Besylate 5 Mg Tablet) 5 mg PO DAILY [facility]; Protocol Last Admin: 03/23/25 08:15 Dose: 5 mg Buspirone HCl (Buspirone Hcl 5 Mg Tablet) 15 mg PO BID [facility] Last Admin: 03/23/25 20:39 Dose: 15 mg Dicyclomine HCl (Dicyclomine Hcl 10 Mg Capsule) 20 mg PO BID [facility] Last Admin: 03/23/25 20:39 Dose: 20 mg Hydroxyzine HCl (Hydroxyzine Hcl 25 Mg Tablet) 25 mg PO Q6H PRN PRN Reason: mild anxiety Last Admin: 03/20/25 20:56 Dose: 25 mg Magnesium Hydroxide (Milk Of Magnesia 30 Ml Oral.Susp) 30 ml PO DAILY PRN PRN Reason: Constipation Melatonin (Melatonin 3 Mg Tablet) 6 mg PO BEDTIME [facility] Last Admin: 03/23/25 20:38 Dose: 6 mg Memantine (Memantine Hcl 5 Mg Tablet) 5 mg PO BID [facility] Last Admin: 03/23/25 20:39 Dose: 5 mg Nicotine Polacrilex (Nicotine Polacrilex 2 Mg Gum) 2 mg BUCCAL Q2H PRN PRN Reason: Nicotine Cravings Omeprazole (Omeprazole 20 Mg Capsule.Dr) 20 mg PO DAILY [facility] Last Admin: 03/23/25 08:15 Dose: 20 mg Propranolol HCl (Propranolol Hcl La 60 Mg Cap.Sa.24h) 60 mg PO DAILY [facility]; Protocol Last Admin: 03/23/25 08:15 Dose: 60 mg Risperidone (Risperidone 0.5 Mg Tablet) 0.5 mg PO BID PRN PRN Reason: agitation Risperidone (Risperidone 1 Mg Tablet) 1 mg PO BID [facility] Last Admin: 03/23/25 20:39 Dose: 1 mg Simethicone (Simethicone 80 Mg Tab.Chew) 80 mg PO QIDWMHS PRN PRN Reason: gas/Heart burn Last Admin: 03/23/25 17:26 Dose: 80 mg Trazodone HCl (Trazodone Hcl 50 Mg Tablet) 50 mg PO BEDTIME MRX1 PRN PRN Reason: Insomnia Last Admin: 03/20/25 20:56 Dose: 50 mg Allergies Allergies Allergy/AdvReac Type Severity Reaction Status Date / Time Sulfa (Sulfonamide Allergy Severe Rash Verified 03/09/25 20:52 Antibiotics) Assessment & Plan Assessment & Plan (1) Alzheimer's dementia: Qualifiers: Alzheimer's disease onset: unspecified onset Dementia severity: unspecified severity Dementia behavioral or psychological symptom: with anxiety Qualified Code(s): G30.9 - Alzheimer's disease, unspecified; F02.84 - Dementia in other diseases classified elsewhere, unspecified severity, with anxiety Status: Acute Code(s): G30.9 - Alzheimer's disease, unspecified; F02.80 - Dementia in other diseases classified elsewhere, unspecified severity, without behavioral disturbance, psychotic disturbance, mood disturbance, and anxiety Assessment and Plan: cont memantine unclear discharge plan Plan HPI: This is the first reported psychiatric admission for this 74 year old [id number] female from [place], [place]. Patient was transferred from [facility] ED. 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 Patient has a diagnosis of dementia since 2017. She reportedly left the home in [place] and drove to [place] and then back to [place]. In [place] she parked at a fire station and told 2 men there she was lost and told them her BF was stealing money from her. They called the police and patient was taken to the ED. PLAN: - Admit to inpatient psychiatry - CV - Collateral information from family and providers. - Milieu treatment and group therapy. - Medications: Continue OP regimen. - Social work evaluation. - Disposition planning. Hypertension Blood pressure has improved since arrival Patient will continue her amlodipine 5 mg daily Low-sodium diet Monitor blood pressure at least daily Tachycardia EKG requested, Sinus TACH 103, possible left atrial enlargement, Qtc 434 Suspect tachycardia secondary to patient's anxiety level Patient likely did not receive her propranolol per nursing at [facility], will order a 1 time dose of 40 mgs tonight Patient normally on propranolol 60 mg daily Patient is afebrile, no leukocytosis, UA negative at [place] Added BNP to AM labs, if elevated, may require echo Stomach cramps Continue Bentyl, janine in presentation Patient follows with a specialist in the outpatient setting. Hospitalist consult placed today 03/12/25. Continue bowel regimen Monitor for constipation GERD Continue omeprazole Obesity Patient has made efforts to lose weight by not eating bagels or sugar Nutritional consult as needed 03/11: continue current management and treatment plan. 03/12/25: Slept well and have no issue with appetite. Focused on wanting to go home. She does not want to be here folate 30 days. Reviewed with patient criteria to get home, but need to be stabilized. Denies safety concerns, anxious but visible and pleasant upon approach. She is forgetful. 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 Also start on Memantine 5 mg daily for dementia Alzheimer. Continue with risperidone 0.5 b.i.d. p.r.n. agitation. 03/13/25: Doing well with medication changes and new Menantine. Slept through the night, was medication compliant, less focused on going home today. Feeling lonely , some anxiety but not depression I want to live . Denies safety concerns. [place] done today scored [place] 9/30. Indicating severe cognitive impairment with deficits in all domains except language. She also scored a 4.2 on the ACLS indicate moderate functional deficits and the need for 38% cognitive assistance for problem solving, safety and ADLs/ADLs completion and consistency. She was the same outfit as yesterday. Continue complain about stomach pain, on the right side. Denies trouble voiding. No burning sensation. Simethicone 80 mg q.i.d. HS with meal as needed for gas or heartburn. Hospitalist was notified that she has a consult order in. 03/14/2025 Patient anxious and dysphoric has been on memantine BuSpar Risperdal. Hospitalist service saw the patient for abdominal pain did not feel need for further workup at this time. Seems to be tolerating medication patient does states she hopes to live with a cousin if she is not able to live with her partner. 03/15/25: Reports trouble falling asleep, but has been eating okay. Denies side effects from medications. Observed visible on the unit, attended groups, no angry moments, feeling anxious. Denies safety concerns I never want to . I love my life . Reports the boyfriend will come visit her bringing her more clothes this week. Perseverative on abdominal pain which she knows that is the chronic issues. Confirmed with her that she does not need antibiotic per hospitalist who saw her the day before. She thinks that she needs to be on antibiotic as she did the research in the past with the recommendation that she should be on antibiotic. Denies other safety concerns. Melatonin 6 mg at bedtime for sleep (reported that she takes 5 mg [id number] at home) 03/16/25 Pt with unrealistic expectations cont melatonin buspar can in [place] target mood behavior cognition consider rlower risp 03/17/25 CTP 03/18/25 ongoing confusion, mostly pleasant perseverative on abd pain- CTP 03/19/25 can inc [place] work with partner regarding return home vs placement 03/20/25 working on safe d/c planning partner feels unable to manage cont risp [place] risperadol coord with family 03/21/2025 Continue plan of care discharge planning PT consult continue Risperdal 03/22/2025 Patient with some periods of anxiety irritability not combative. Discharge planning between patient's son and her partner who is healthcare proxy 03/23/2025 Patient more easily brightening not aggressive. Has difficulty understanding current situation Continue current medication no adverse effects noted. Discharged and healthcare proxy and family Reason for continued inpatient stay Substantial Risk for: inability to function, rapid decompensation and med/psych decompensation Time Spent With Patient Time: Total time managing care of this patient today ____ minutes.
[2025-03-24 09:10] VITALS: TEMP 36.6
[2025-03-24] MEDS: Propranolol HCL LA 60 MG CAP.SA.24H PO (09:11)
--- NOTE | 2025-03-24 12:46 | P.PNPSI_ITS ---
Subjective Subjective Date of Service: 03/24/25 Reason For Visit: Unspecified psychosis Dementia w/ behavioral distu Interim History: Patient seen chart reviewed case reviewed in treatment planning. Patient social in the milieu confused but less irritable and agitated. Social with some peers Review of Systems Review of Systems Patient denies any chest pain, shortness of breath at rest or with exertion, nausea/vomiting, abdominal pain but reports intermittent abdominal cramping which has been chronic and persistent. Patient follows with a specialist for her stomach issues. Patient denies any headache, visual changes, difficulty swallowing. Patient denies history of sinus infections. Patient reports feeling mildly anxious in his new environment. Patient denies any SI, HI or hallucinations. 03/13: [place] score 05/15: Indicating severe cognitive impairment with deficits in all domains except language. Scored a 4.2 on the ACLS indicate moderate functional deficits and the need for 38% cognitive assistance for problem solving, safety and ADLs/ADLs completion and consistency Yes all other systems are reviewed and are negative Mental Status Exam Mental Status Exam Narrative: dressed in night gown and robe- Patient Appearance: Well Grooomed and Appropriate Patient Orientation: Person Level of Consciousness: Awake and Alert Patient Behavior: Cooperative, Distractible and Good Eye Contact Behavior Comments: Mood brighter superficially cheerful at times Mood Description: Anxious Affect Description: Appropriate and Apprehensive Patient Cognition Impaired: Yes Ability to Follow Directions: Fair Speech Pattern: Clear Memory Description: Episodic Impaired and Immediate Intact Diagnostics Vital Signs (24Hr): Vital Signs - 24 hr 03/23/25 20:00 03/24/25 09:10 Temperature 97.5 F 97.9 F Pulse Rate 60 Respiratory Rate 16 Blood Pressure 137/77 Pulse Oximetry 96 Oxygen Delivery Method Room Air Room Air BMI result Body Mass Index 35.6 Labs 03/10/25 07:41 Medications Medications Current Medications Acetaminophen (Acetaminophen 325 Mg Tablet) 650 mg PO Q6H PRN PRN Reason: Headache/Pain, Scale 1-10 Last Admin: 03/16/25 11:27 Dose: 650 mg Al Hydroxide/Mg Hydroxide (Magnesium Hydrox/Alum Hydrox 30 Ml Oral.Susp) 30 ml PO Q6H PRN PRN Reason: Heartburn/Nausea Last Admin: 03/21/25 11:57 Dose: 30 ml Amlodipine Besylate (Amlodipine Besylate 5 Mg Tablet) 5 mg PO DAILY [facility]; Protocol Last Admin: 03/24/25 09:12 Dose: 5 mg Buspirone HCl (Buspirone Hcl 5 Mg Tablet) 15 mg PO BID [facility] Last Admin: 03/24/25 09:12 Dose: 15 mg Dicyclomine HCl (Dicyclomine Hcl 10 Mg Capsule) 20 mg PO BID [facility] Last Admin: 03/24/25 09:12 Dose: 20 mg Hydroxyzine HCl (Hydroxyzine Hcl 25 Mg Tablet) 25 mg PO Q6H PRN PRN Reason: mild anxiety Last Admin: 03/20/25 20:56 Dose: 25 mg Magnesium Hydroxide (Milk Of Magnesia 30 Ml Oral.Susp) 30 ml PO DAILY PRN PRN Reason: Constipation Melatonin (Melatonin 3 Mg Tablet) 6 mg PO BEDTIME [facility] Last Admin: 03/23/25 20:38 Dose: 6 mg Memantine (Memantine Hcl 5 Mg Tablet) 5 mg PO BID [facility] Last Admin: 03/24/25 09:13 Dose: 5 mg Nicotine Polacrilex (Nicotine Polacrilex 2 Mg Gum) 2 mg BUCCAL Q2H PRN PRN Reason: Nicotine Cravings Omeprazole (Omeprazole 20 Mg Capsule.Dr) 20 mg PO DAILY [facility] Last Admin: 03/24/25 09:12 Dose: 20 mg Propranolol HCl (Propranolol Hcl La 60 Mg Cap.Sa.24h) 60 mg PO DAILY [facility]; Protocol Last Admin: 03/24/25 09:11 Dose: 60 mg Risperidone (Risperidone 0.5 Mg Tablet) 0.5 mg PO BID PRN PRN Reason: agitation Risperidone (Risperidone 1 Mg Tablet) 1 mg PO BID [facility] Last Admin: 03/24/25 09:11 Dose: 1 mg Simethicone (Simethicone 80 Mg Tab.Chew) 80 mg PO QIDWMHS PRN PRN Reason: gas/Heart burn Last Admin: 03/24/25 11:27 Dose: 80 mg Trazodone HCl (Trazodone Hcl 50 Mg Tablet) 50 mg PO BEDTIME MRX1 PRN PRN Reason: Insomnia Last Admin: 03/20/25 20:56 Dose: 50 mg Allergies Allergies Allergy/AdvReac Type Severity Reaction Status Date / Time Sulfa (Sulfonamide Allergy Severe Rash Verified 03/09/25 20:52 Antibiotics) Assessment & Plan Assessment & Plan (1) Alzheimer's dementia: Qualifiers: Alzheimer's disease onset: unspecified onset Dementia behavioral or psychological symptom: with anxiety Dementia severity: unspecified severity Q ualified Code(s): G30.9 - Alzheimer's disease, unspecified; F02.84 - Dementia in other diseases classified elsewhere, unspecified severity, with anxiety Status: Acute Code(s): G30.9 - Alzheimer's disease, unspecified; F02.80 - Dementia in other diseases classified elsewhere, unspecified severity, without behavioral disturbance, psychotic disturbance, mood disturbance, and anxiety Assessment and Plan: cont memantine unclear discharge plan Plan HPI: This is the first reported psychiatric admission for this 74 year old [id number] female from [place], [place]. Patient was transferred from [facility] ED. Information was obtained from patient who isn't a reliable highway maintenance technician due to her cognitive limitations and noted confabulation and the ED psychiatric consultation records from [facility]. Patient has a diagnosis of dementia since 2017. She reportedly left the home in [place] and drove to [place] and then back to [place]. In [place] she parked at a fire station and told 2 men there she was lost and told them her BF was stealing money from her. They called the police and patient was taken to the ED. PLAN: - Admit to inpatient psychiatry - CV - Collateral information from family and providers. - Milieu treatment and group therapy. - Medications: Continue OP regimen. - Social work evaluation. - Disposition planning. Hypertension Blood pressure has improved since arrival Patient will continue her amlodipine 5 mg daily Low-sodium diet Monitor blood pressure at least daily Tachycardia EKG requested, Sinus TACH 103, possible left atrial enlargement, Qtc 434 Suspect tachycardia secondary to patient's anxiety level Patient likely did not receive her propranolol per nursing at [facility], will order a 1 time dose of 40 mgs tonight Patient normally on propranolol 60 mg daily Patient is afebrile, no leukocytosis, UA negative at [place] Added BNP to AM labs, if elevated, may require echo Stomach cramps Continue Bentyl, chronic in presentation Patient follows with a specialist in the outpatient setting. Hospitalist consult placed today 03/12/25. Continue bowel regimen Monitor for constipation GERD Continue omeprazole Obesity Patient has made efforts to lose weight by not eating bagels or sugar Nutritional consult as needed 03/11: continue current management and treatment plan. 03/12/25: Slept well and have no issue with appetite. Focused on wanting to go home. She does not want to be here folate 30 days. Reviewed with patient criteria to get home, but need to be stabilized. Denies safety concerns, anxious but visible and pleasant upon approach. She is forgetful. 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 Also start on Memantine 5 mg daily for dementia Alzheimer. Continue with risperidone 0.5 b.i.d. p.r.n. agitation. 03/13/25: Doing well with medication changes and new Menantine. Slept through the night, was medication compliant, less focused on going home today. Feeling lonely , some anxiety but not depression I want to live . Denies safety concerns. [place] done today scored [place] 9/30. Indicating severe cognitive impairment with deficits in all domains except language. She also scored a 4.2 on the ACLS indicate moderate functional deficits and the need for 38% cognitive assistance for problem solving, safety and ADLs/ADLs completion and consistency. She was the same outfit as yesterday. Continue complain about stomach pain, on the right side. Denies trouble voiding. No burning sensation. Simethicone 80 mg q.i.d. HS with meal as needed for gas or heartburn. Hospitalist was notified that she has a consult order in. 03/14/2025 Patient anxious and dysphoric has been on memantine BuSpar Risperdal. Hospitalist service saw the patient for abdominal pain did not feel need for further workup at this time. Seems to be tolerating medication patient does states she hopes to live with a cousin if she is not able to live with her partner. 03/15/25: Reports trouble falling asleep, but has been eating okay. Denies side effects from medications. Observed visible on the unit, attended groups, no angry moments, feeling anxious. Denies safety concerns I never want to . I love my life . Reports the boyfriend will come visit her bringing her more clothes this week. Perseverative on abdominal pain which she knows that is the chronic issues. Confirmed with her that she does not need antibiotic per hospitalist who saw her the day before. She thinks that she needs to be on antibiotic as she did the research in the past with the recommendation that she should be on antibiotic. Denies other safety concerns. Melatonin 6 mg at bedtime for sleep (reported that she takes 5 mg [id number] at home) 03/16/25 Pt with unrealistic expectations cont melatonin buspar can in [place] target mood behavior cognition consider rlower risp 03/17/25 CTP 03/18/25 ongoing confusion, mostly pleasant perseverative on abd pain- CTP 03/19/25 can inc [place] work with partner regarding return home vs placement 03/20/25 working on safe d/c planning partner feels unable to manage cont risp [place] risperadol coord with family 03/21/2025 Continue plan of care discharge planning PT consult continue Risperdal 03/22/2025 Patient with some periods of anxiety irritability not combative. Discharge planning between patient's son and her partner who is healthcare proxy 03/23/2025 Patient more easily brightening not aggressive. Has difficulty understanding current situation Continue current medication no adverse effects noted. Discharged and healthcare proxy and family 03/24: continue current management and treatment plan. Reason for continued inpatient stay Substantial Risk for: inability to function and rapid decompensation Time Spent With Patient Time: Total time managing care of this patient today ____ minutes.
[2025-03-24 20:00] VITALS: BP 127/71; PULSE 64; TEMP 36.5; O2SAT 98
[2025-03-25 08:37] VITALS: BP 112/57; PULSE 77; RESP 18; TEMP 36.2; O2SAT 96
[2025-03-25] MEDS: Propranolol HCL LA 60 MG CAP.SA.24H PO (08:41)
--- NOTE | 2025-03-25 09:24 | HO.PSYCHPN ---
Subjective Subjective Date of Service: 03/25/25 Reason For Visit: Unspecified psychosis Dementia w/ behavioral distu Interim History: Patient seen Has been pleasant and cooperative. No behavioral outbursts. Had a visit with her and went well. Denies SI/HI/AVH. Continues very confused and disoriented. Likes to be called Maria C. Review of Systems Review of Systems Patient denies any chest pain, shortness of breath at rest or with exertion, nausea/vomiting, abdominal pain but reports intermittent abdominal cramping which has been chronic and persistent. Patient follows with a specialist for her stomach issues. Patient denies any headache, visual changes, difficulty swallowing. Patient denies history of sinus infections. Patient reports feeling mildly anxious in his new environment. Patient denies any SI, HI or hallucinations. 03/13: [place] score 9/30: Indicating severe cognitive impairment with deficits in all domains except language. Scored a 4.2 on the ACLS indicate moderate functional deficits and the need for 38% cognitive assistance for problem solving, safety and ADLs/ADLs completion and consistency Yes all other systems are reviewed and are negative Mental Status Exam Mental Status Exam Narrative: dressed in night gown and robe- Patient Appearance: Well Grooomed and Appropriate Patient Orientation: Person Level of Consciousness: Awake and Alert Patient Behavior: Cooperative, Distractible and Good Eye Contact Behavior Comments: Mood brighter superficially cheerful at times Mood Description: Anxious Affect Description: Appropriate and Apprehensive Patient Cognition Impaired: Yes Ability to Follow Directions: Fair Speech Pattern: Clear Memory Description: Episodic Impaired and Immediate Intact Diagnostics Vital Signs (24Hr): Vital Signs - 24 hr 03/24/25 20:00 03/25/25 08:37 Temperature 97.7 F 97.2 F Pulse Rate 64 77 Respiratory Rate 18 Blood Pressure 127/71 112/57 L Pulse Oximetry 98 96 Oxygen Delivery Method Room Air Room Air BMI result Body Mass Index 35.6 Labs 03/10/25 07:41 Medications Medications Current Medications Acetaminophen (Acetaminophen 325 Mg Tablet) 650 mg PO Q6H PRN PRN Reason: Headache/Pain, Scale 1-10 Last Admin: 03/16/25 11:27 Dose: 650 mg Al Hydroxide/Mg Hydroxide (Magnesium Hydrox/Alum Hydrox 30 Ml Oral.Susp) 30 ml PO Q6H PRN PRN Reason: Heartburn/Nausea Last Admin: 03/21/25 11:57 Dose: 30 ml Amlodipine Besylate (Amlodipine Besylate 5 Mg Tablet) 5 mg PO DAILY [facility]; Protocol Last Admin: 03/25/25 08:41 Dose: 5 mg Buspirone HCl (Buspirone Hcl 5 Mg Tablet) 15 mg PO BID [facility] Last Admin: 03/25/25 08:41 Dose: 15 mg Dicyclomine HCl (Dicyclomine Hcl 10 Mg Capsule) 20 mg PO BID [facility] Last Admin: 03/25/25 08:42 Dose: 20 mg Hydroxyzine HCl (Hydroxyzine Hcl 25 Mg Tablet) 25 mg PO Q6H PRN PRN Reason: mild anxiety Last Admin: 03/20/25 20:56 Dose: 25 mg Magnesium Hydroxide (Milk Of Magnesia 30 Ml Oral.Susp) 30 ml PO DAILY PRN PRN Reason: Constipation Melatonin (Melatonin 3 Mg Tablet) 6 mg PO BEDTIME [facility] Last Admin: 03/24/25 20:34 Dose: 6 mg Memantine (Memantine Hcl 5 Mg Tablet) 5 mg PO BID [facility] Last Admin: 03/25/25 08:42 Dose: 5 mg Nicotine Polacrilex (Nicotine Polacrilex 2 Mg Gum) 2 mg BUCCAL Q2H PRN PRN Reason: Nicotine Cravings Omeprazole (Omeprazole 20 Mg Capsule.Dr) 20 mg PO DAILY [facility] Last Admin: 03/25/25 08:41 Dose: 20 mg Propranolol HCl (Propranolol Hcl La 60 Mg Cap.Sa.24h) 60 mg PO DAILY [facility]; Protocol Last Admin: 03/25/25 08:41 Dose: 60 mg Risperidone (Risperidone 0.5 Mg Tablet) 0.5 mg PO BID PRN PRN Reason: agitation Risperidone (Risperidone 1 Mg Tablet) 1 mg PO BID [facility] Last Admin: 03/25/25 08:41 Dose: 1 mg Simethicone (Simethicone 80 Mg Tab.Chew) 80 mg PO QIDWMHS PRN PRN Reason: gas/Heart burn Last Admin: 03/24/25 11:27 Dose: 80 mg Trazodone HCl (Trazodone Hcl 50 Mg Tablet) 50 mg PO BEDTIME MRX1 PRN PRN Reason: Insomnia Last Admin: 03/20/25 20:56 Dose: 50 mg Allergies Allergies Allergy/AdvReac Type Severity Reaction Status Date / Time Sulfa (Sulfonamide Allergy Severe Rash Verified 03/09/25 20:52 Antibiotics) Assessment & Plan Assessment & Plan (1) Alzheimer's dementia: Qualifiers: Alzheimer's disease onset: unspecified onset Dementia behavioral or psychological symptom: with anxiety Dementia severity: unspecified severity Qualified Code(s): G30.9 - Alzheimer's disease, unspecified; F02.84 - Dementia in other diseases classified elsewhere, unspecified severity, with anxiety Status: Acute Code(s): G30.9 - Alzheimer's disease, unspecified; F02.80 - Dementia in other diseases classified elsewhere, unspecified severity, without behavioral disturbance, psychotic disturbance, mood disturbance, and anxiety Assessment and Plan: cont memantine unclear discharge plan Plan HPI: This is the first reported psychiatric admission for this 74 year old [id number] female from [place], [place]. Patient was transferred from [facility] ED. 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 Patient has a diagnosis of dementia since 2017. She reportedly left the home in [place] and drove to [place] and then back to [place]. In [place] she parked at a fire station and told 2 men there she was lost and told them her BF was stealing money from her. They called the police and patient was taken to the ED. PLAN: - Admit to inpatient psychiatry - CV - Collateral information from family and providers. - Milieu treatment and group therapy. - Medications: Continue OP regimen. - Social work evaluation. - Disposition planning. Hypertension Blood pressure has improved since arrival Patient will continue her amlodipine 5 mg daily Low-sodium diet Monitor blood pressure at least daily Tachycardia EKG requested, Sinus TACH 103, possible left atrial enlargement, Qtc 434 Suspect tachycardia secondary to patient's anxiety level Patient likely did not receive her propranolol per nursing at [facility], will order a 1 time dose of 40 mgs tonight Patient normally on propranolol 60 mg daily Patient is afebrile, no leukocytosis, UA negative at [place] Added BNP to AM labs, if elevated, may require echo Stomach cramps Continue Bentyl, chronic in presentation Patient follows with a specialist in the outpatient setting. Hospitalist consult placed today 03/12/25. Continue bowel regimen Monitor for constipation GERD Continue omeprazole Obesity Patient has made efforts to lose weight by not eating bagels or sugar Nutritional consult as needed 03/11: continue current management and treatment plan. 03/12/25: Slept well and have no issue with appetite. Focused on wanting to go home. She does not want to be here folate 30 days. Reviewed with patient criteria to get home, but need to be stabilized. Denies safety concerns, anxious but visible and pleasant upon approach. She is forgetful. 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 Also start on Memantine 5 mg daily for dementia Alzheimer. Continue with risperidone 0.5 b.i.d. p.r.n. agitation. 03/13/25: Doing well with medication changes and new Menantine. Slept through the night, was medication compliant, less focused on going home today. Feeling lonely , some anxiety but not depression I want to live . Denies safety concerns. [place] done today scored [place] 9/30. Indicating severe cognitive impairment with deficits in all domains except language. She also scored a 4.2 on the ACLS indicate moderate functional deficits and the need for 38% cognitive assistance for problem solving, safety and ADLs/ADLs completion and consistency. She was the same outfit as yesterday. Continue complain about stomach pain, on the right side. Denies trouble voiding. No burning sensation. Simethicone 80 mg q.i.d. HS with meal as needed for gas or heartburn. Hospitalist was notified that she has a consult order in. 03/14/2025 Patient anxious and dysphoric has been on memantine BuSpar Risperdal. Hospitalist service saw the patient for abdominal pain did not feel need for further workup at this time. Seems to be tolerating medication patient does states she hopes to live with a cousin if she is not able to live with her partner. 03/15/25: Reports trouble falling asleep, but has been eating okay. Denies side effects from medications. Observed visible on the unit, attended groups, no angry moments, feeling anxious. Denies safety concerns I never want to . I love my life . Reports the boyfriend will come visit her bringing her more clothes this week. Perseverative on abdominal pain which she knows that is the chronic issues. Confirmed with her that she does not need antibiotic per hospitalist who saw her the day before. She thinks that she needs to be on antibiotic as she did the research in the past with the recommendation that she should be on antibiotic. Denies other safety concerns. Melatonin 6 mg at bedtime for sleep (reported that she takes 5 mg [id number] at home) 03/16/25 Pt with unrealistic expectations cont melatonin buspar can in [place] target mood behavior cognition consider rlower risp 03/17/25 CTP 03/18/25 ongoing confusion, mostly pleasant perseverative on abd pain- CTP 03/19/25 can inc namenda work with partner regarding return home vs placement 03/20/25 working on safe d/c planning partner feels unable to manage cont risp [place] risperadol coord with family 03/21/2025 Continue plan of care discharge planning PT consult continue Risperdal 03/22/2025 Patient with some periods of anxiety irritability not combative. Discharge planning between patient's son and her partner who is healthcare proxy 03/23/2025 Patient more easily brightening not aggressive. Has difficulty understanding current situation Continue current medication no adverse effects noted. Discharged and healthcare proxy and family 03/24: continue current management and treatment plan. 03/25: continue current management and treatment plan. Reason for continued inpatient stay Substantial Risk for: inability to function and rapid decompensation Time Spent With Patient Time: Total time managing care of this patient today ____ minutes.
[2025-03-25 19:42] VITALS: BP 135/64; PULSE 72; RESP 18; TEMP 36.2; O2SAT 95
[2025-03-26 08:35] VITALS: BP 107/56; PULSE 71; RESP 18; TEMP 36.5; O2SAT 96
[2025-03-26] MEDS: Propranolol HCL LA 60 MG CAP.SA.24H PO (08:54)
[2025-03-26 20:00] VITALS: BP 117/58; PULSE 60; RESP 18; TEMP 36.4; O2SAT 96
--- NOTE | 2025-03-26 22:59 | P.PNPSI_ITS ---
Subjective Subjective Date of Service: 03/19/25 Reason For Visit: Unspecified psychosis Dementia w/ behavioral distu Subjective Notes: Conditional Voluntary Healthcare Proxy: Yes Interim History: Patient with some periods of irritability significant memory impairment did not remember she had had visitors over the weekend her children she has socially engaged in the milieu eating and drinking okay Medication Compliance: Yes Diagnostics Vital Signs (24Hr): Vital Signs - 24 hr 03/26/25 08:35 03/26/25 20:00 Temperature 97.7 F 97.5 F Pulse Rate 71 60 Respiratory Rate 18 18 Blood Pressure 107/56 L 117/58 L Pulse Oximetry 96 96 Oxygen Delivery Method Room Air Room Air BMI result Body Mass Index 35.6 Labs 03/10/25 07:41 Medications Medications Current Medications Acetaminophen (Acetaminophen 325 Mg Tablet) 650 mg PO Q6H PRN PRN Reason: Headache/Pain, Scale 1-10 Last Admin: 03/16/25 11:27 Dose: 650 mg Al Hydroxide/Mg Hydroxide (Magnesium Hydrox/Alum Hydrox 30 Ml Oral.Susp) 30 ml PO Q6H PRN PRN Reason: Heartburn/Nausea Last Admin: 03/21/25 11:57 Dose: 30 ml Amlodipine Besylate (Amlodipine Besylate 5 Mg Tablet) 5 mg PO DAILY [facility]; Protocol Last Admin: 03/26/25 08:55 Dose: 5 mg Buspirone HCl (Buspirone Hcl 5 Mg Tablet) 15 mg PO BID [facility] Last Admin: 03/26/25 20:15 Dose: 15 mg Dicyclomine HCl (Dicyclomine Hcl 10 Mg Capsule) 20 mg PO BID [facility] Last Admin: 03/26/25 20:14 Dose: 20 mg Hydroxyzine HCl (Hydroxyzine Hcl 25 Mg Tablet) 25 mg PO Q6H PRN PRN Reason: mild anxiety Last Admin: 03/20/25 20:56 Dose: 25 mg Magnesium Hydroxide (Milk Of Magnesia 30 Ml Oral.Susp) 30 ml PO DAILY PRN PRN Reason: Constipation Melatonin (Melatonin 3 Mg Tablet) 6 mg PO BEDTIME [facility] Last Admin: 03/26/25 20:14 Dose: 6 mg Memantine (Memantine Hcl 5 Mg Tablet) 5 mg PO BID [facility] Last Admin: 03/26/25 20:14 Dose: 5 mg Nicotine Polacrilex (Nicotine Polacrilex 2 Mg Gum) 2 mg BUCCAL Q2H PRN PRN Reason: Nicotine Cravings Omeprazole (Omeprazole 20 Mg Capsule.Dr) 20 mg PO DAILY [facility] Last Admin: 03/26/25 08:55 Dose: 20 mg Propranolol HCl (Propranolol Hcl La 60 Mg Cap.Sa.24h) 60 mg PO DAILY [facility]; Protocol Last Admin: 03/26/25 08:54 Dose: 60 mg Risperidone (Risperidone 0.5 Mg Tablet) 0.5 mg PO BID PRN PRN Reason: agitation Risperidone (Risperidone 1 Mg Tablet) 1 mg PO BID [facility] Last Admin: 03/26/25 20:14 Dose: 1 mg Simethicone (Simethicone 80 Mg Tab.Chew) 80 mg PO QIDWMHS PRN PRN Reason: gas/Heart burn Last Admin: 03/25/25 11:09 Dose: 80 mg Trazodone HCl (Trazodone Hcl 50 Mg Tablet) 50 mg PO BEDTIME MRX1 PRN PRN Reason: Insomnia Last Admin: 03/20/25 20:56 Dose: 50 mg Allergies Allergies Allergy/AdvReac Type Severity Reaction Status Date / Time Sulfa (Sulfonamide Allergy Severe Rash Verified 03/09/25 20:52 Antibiotics) Assessment & Plan Assessment & Plan (1) Alzheimer's dementia: Qualifiers: Alzheimer's disease onset: unspecified onset Dementia behavioral or psychological symptom: with anxiety Dementia severity: unspecified severity Q ualified Code(s): G30.9 - Alzheimer's disease, unspecified; F02.84 - Dementia in other diseases classified elsewhere, unspecified severity, with anxiety Status: Acute Code(s): G30.9 - Alzheimer's disease, unspecified; F02.80 - Dementia in other diseases classified elsewhere, unspecified severity, without behavioral disturbance, psychotic disturbance, mood disturbance, and anxiety Assessment and Plan: cont memantine unclear discharge plan Plan HPI: This is the first reported psychiatric admission for this 74 year old [id number] female from [place], [place]. Patient was transferred from [facility] ED. Information was obtained from patient who isn't a reliable visitor information assistant due to her cognitive limitations and noted confabulation and the ED psychiatric consultation records from [facility] ED. Patient has a diagnosis of dementia since 2017. She reportedly left the home in [place] and drove to [place] and then back to [place]. In [place] she parked at a fire station and told 2 men there she was lost and told them her BF was stealing money from her. They called the police and patient was taken to the ED. PLAN: - Admit to inpatient psychiatry - CV - Collateral information from family and providers. - Milieu treatment and group therapy. - Medications: Continue OP regimen. - Social work evaluation. - Disposition planning. Hypertension Blood pressure has improved since arrival Patient will continue her amlodipine 5 mg daily Low-sodium diet Monitor blood pressure at least daily Tachycardia EKG requested, Sinus TACH 103, possible left atrial enlargement, Qtc 434 Suspect tachycardia secondary to patient's anxiety level Patient likely did not receive her propranolol per nursing at [facility], will order a 1 time dose of 40 mgs tonight Patient normally on propranolol 60 mg daily Patient is afebrile, no leukocytosis, UA negative at [place] Added BNP to AM labs, if elevated, may require echo Stomach cramps Continue Bentyl, chronic in presentation Patient follows with a specialist in the outpatient setting. Hospitalist consult placed today 03/12/25. Continue bowel regimen Monitor for constipation GERD Continue omeprazole Obesity Patient has made efforts to lose weight by not eating bagels or sugar Nutritional consult as needed 03/11: continue current management and treatment plan. 03/12/25: Slept well and have no issue with appetite. Focused on wanting to go home. She does not want to be here folate 30 days. Reviewed with patient criteria to get home, but need to be stabilized. Denies safety concerns, anxious but visible and pleasant upon approach. She is forgetful. 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 Also start on Memantine 5 mg daily for dementia Alzheimer. Continue with risperidone 0.5 b.i.d. p.r.n. agitation. 03/13/25: Doing well with medication changes and new Menantine. Slept through the night, was medication compliant, less focused on going home today. Feeling lonely , some anxiety but not depression I want to live . Denies safety concerns. [place] done today scored [place] 9/30. Indicating severe cognitive impairment with deficits in all domains except language. She also scored a 4.2 on the ACLS indicate moderate functional deficits and the need for 38% cognitive assistance for problem solving, safety and ADLs/ADLs completion and consistency. She was the same outfit as yesterday. Continue complain about stomach pain, on the right side. Denies trouble voiding. No burning sensation. Simethicone 80 mg q.i.d. HS with meal as needed for gas or heartburn. Hospitalist was notified that she has a consult order in. 03/14/2025 Patient anxious and dysphoric has been on memantine BuSpar Risperdal. Hospitalist service saw the patient for abdominal pain did not feel need for further workup at this time. Seems to be tolerating medication patient does states she hopes to live with a cousin if she is not able to live with her partner. 03/15/25: Reports trouble falling asleep, but has been eating okay. Denies side effects from medications. Observed visible on the unit, attended groups, no angry moments, feeling anxious. Denies safety concerns I never want to . I love my life . Reports the boyfriend will come visit her bringing her more clothes this week. Perseverative on abdominal pain which she knows that is the chronic issues. Confirmed with her that she does not need antibiotic per hospitalist who saw her the day before. She thinks that she needs to be on antibiotic as she did the research in the past with the recommendation that she should be on antibiotic. Denies other safety concerns. Melatonin 6 mg at bedtime for sleep (reported that she takes 5 mg [id number] at home) 03/16/25 Pt with unrealistic expectations cont melatonin buspar can in [place] target mood behavior cognition consider rlower risp 03/17/25 CTP 03/18/25 ongoing confusion, mostly pleasant perseverative on abd pain- CTP 03/19/25 can inc [place] work with partner regarding return home vs placement 03/20/25 working on safe d/c planning partner feels unable to manage cont risp [place] risperadol coord with family 03/21/2025 Continue plan of care discharge planning PT consult continue Risperdal 03/22/2025 Patient with some periods of anxiety irritability not combative. Discharge planning between patient's son and her partner who is healthcare proxy 03/23/2025 Patient more easily brightening not aggressive. Has difficulty understanding current situation Continue current medication no adverse effects noted. Discharged and healthcare proxy and family 03/24: continue current management and treatment plan. 03/25: continue current management and treatment plan. 03/26/2025 Namenda increase will consider Aricept 5 mg. Social work working with family for discharge planning and placement patient needs much reassurance Reason for continued inpatient stay Substantial Risk for: inability to function and rapid decompensation Time Spent With Patient Time: Total time managing care of this patient today ____ minutes.
[2025-03-27 08:10] VITALS: BP 114/62; PULSE 75; RESP 18; TEMP 36.7; O2SAT 96
[2025-03-27] MEDS: Propranolol HCL LA 60 MG CAP.SA.24H PO (08:45)
--- NOTE | 2025-03-27 16:24 | HO.PSYCHPN ---
Subjective Subjective Date of Service: 03/27/25 Reason For Visit: Unspecified psychosis Dementia w/ behavioral distu Subjective Notes: Conditional Voluntary Healthcare Proxy: Yes Interim History: Pt seen chart reviewed pt seen has seemed more irritable difficulty understanding situation Medication Compliance: Yes Mental Status Exam Mental Status Exam Narrative: dressed in night gown and robe- Patient Appearance: Well Grooomed and Appropriate Patient Orientation: Person Level of Consciousness: Awake and Alert Patient Behavior: Cooperative, Distractible and Good Eye Contact Behavior Comments: Mood brighter superficially cheerful at times Mood Description: Anxious Affect Description: Constricted, Depressed and Apprehensive Patient Cognition Impaired: Yes Ability to Follow Directions: Fair Speech Pattern: Clear Memory Description: Episodic Impaired and Immediate Intact Depressive Symptoms: Increased Anxiety Judgement: Poor Diagnostics Vital Signs (24Hr): Vital Signs - 24 hr 03/26/25 20:00 03/27/25 08:10 Temperature 97.5 F 98.1 F Pulse Rate 60 75 Respiratory Rate 18 18 Blood Pressure 117/58 L 114/62 Pulse Oximetry 96 96 Oxygen Delivery Method Room Air Room Air BMI result Body Mass Index 35.6 Labs 03/10/25 07:41 Medications Medications Current Medications Acetaminophen (Acetaminophen 325 Mg Tablet) 650 mg PO Q6H PRN PRN Reason: Headache/Pain, Scale 1-10 Last Admin: 03/16/25 11:27 Dose: 650 mg Al Hydroxide/Mg Hydroxide (Magnesium Hydrox/Alum Hydrox 30 Ml Oral.Susp) 30 ml PO Q6H PRN PRN Reason: Heartburn/Nausea Last Admin: 03/21/25 11:57 Dose: 30 ml Amlodipine Besylate (Amlodipine Besylate 5 Mg Tablet) 5 mg PO DAILY [facility]; Protocol Last Admin: 03/27/25 08:45 Dose: 5 mg Buspirone HCl (Buspirone Hcl 5 Mg Tablet) 15 mg PO BID [facility] Last Admin: 03/27/25 08:46 Dose: 15 mg Dicyclomine HCl (Dicyclomine Hcl 10 Mg Capsule) 20 mg PO BID [facility] Last Admin: 03/27/25 08:46 Dose: 20 mg Hydroxyzine HCl (Hydroxyzine Hcl 25 Mg Tablet) 25 mg PO Q6H PRN PRN Reason: mild anxiety Last Admin: 03/20/25 20:56 Dose: 25 mg Magnesium Hydroxide (Milk Of Magnesia 30 Ml Oral.Susp) 30 ml PO DAILY PRN PRN Reason: Constipation Melatonin (Melatonin 3 Mg Tablet) 6 mg PO BEDTIME [facility] Last Admin: 03/26/25 20:14 Dose: 6 mg Memantine (Memantine Hcl 5 Mg Tablet) 5 mg PO BID [facility] Last Admin: 03/27/25 08:45 Dose: 5 mg Nicotine Polacrilex (Nicotine Polacrilex 2 Mg Gum) 2 mg BUCCAL Q2H PRN PRN Reason: Nicotine Cravings Omeprazole (Omeprazole 20 Mg Capsule.Dr) 20 mg PO DAILY [facility] Last Admin: 03/27/25 08:45 Dose: 20 mg Propranolol HCl (Propranolol Hcl La 60 Mg Cap.Sa.24h) 60 mg PO DAILY [facility]; Protocol Last Admin: 03/27/25 08:45 Dose: 60 mg Risperidone (Risperidone 0.5 Mg Tablet) 0.5 mg PO BID PRN PRN Reason: agitation Risperidone (Risperidone 1 Mg Tablet) 1 mg PO BID [facility] Last Admin: 03/27/25 08:45 Dose: 1 mg Simethicone (Simethicone 80 Mg Tab.Chew) 80 mg PO QIDWMHS PRN PRN Reason: gas/Heart burn Last Admin: 03/25/25 11:09 Dose: 80 mg Trazodone HCl (Trazodone Hcl 50 Mg Tablet) 50 mg PO BEDTIME MRX1 PRN PRN Reason: Insomnia Last Admin: 03/20/25 20:56 Dose: 50 mg Allergies Allergies Allergy/AdvReac Type Severity Reaction Status Date / Time Sulfa (Sulfonamide Allergy Severe Rash Verified 03/09/25 20:52 Antibiotics) Assessment & Plan Assessment & Plan (1) Alzheimer's dementia: Qualifiers: Alzheimer's disease onset: unspecified onset Dementia behavioral or psychological symptom: with anxiety Dementia severity: unspecified severity Qualified Code(s): G30.9 - Alzheimer's disease, unspecified; F02.84 - Dementia in other diseases classified elsewhere, unspecified severity, with anxiety Status: Acute Code(s): G30.9 - Alzheimer's disease, unspecified; F02.80 - Dementia in other diseases classified elsewhere, unspecified severity, without behavioral disturbance, psychotic disturbance, mood disturbance, and anxiety Assessment and Plan: cont memantine unclear discharge plan Plan HPI: This is the first reported psychiatric admission for this 74 year old [id number] female from [place], [place]. Patient was transferred from [facility] ED. Information was obtained from patient who isn't a reliable manager creative due to her cognitive limitations and noted confabulation and the ED psychiatric consultation records from [facility]. Patient has a diagnosis of dementia since 2017. She reportedly left the home in [place] and drove to [place] and then back to [place]. In [place] she parked at a fire station and told 2 men there she was lost and told them her BF was stealing money from her. They called the police and patient was taken to the ED. PLAN: - Admit to inpatient psychiatry - CV - Collateral information from family and providers. - Milieu treatment and group therapy. - Medications: Continue OP regimen. - Social work evaluation. - Disposition planning. Hypertension Blood pressure has improved since arrival Patient will continue her amlodipine 5 mg daily Low-sodium diet Monitor blood pressure at least daily Tachycardia EKG requested, Sinus TACH 103, possible left atrial enlargement, Qtc 434 Suspect tachycardia secondary to patient's anxiety level Patient likely did not receive her propranolol per nursing at [facility], will order a 1 time dose of 40 mgs tonight Patient normally on propranolol 60 mg daily Patient is afebrile, no leukocytosis, UA negative at [place] Added BNP to AM labs, if elevated, may require echo Stomach cramps Continue Bentyl, chronic in presentation Patient follows with a specialist in the outpatient setting. Hospitalist consult placed today 03/12/25. Continue bowel regimen Monitor for constipation GERD Continue omeprazole Obesity Patient has made efforts to lose weight by not eating bagels or sugar Nutritional consult as needed 03/11: continue current management and treatment plan. 03/12/25: Slept well and have no issue with appetite. Focused on wanting to go home. She does not want to be here folate 30 days. Reviewed with patient criteria to get home, but need to be stabilized. Denies safety concerns, anxious but visible and pleasant upon approach. She is forgetful. 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 Also start on Memantine 5 mg daily for dementia Alzheimer. Continue with risperidone 0.5 b.i.d. p.r.n. agitation. 03/13/25: Doing well with medication changes and new Menantine. Slept through the night, was medication compliant, less focused on going home today. Feeling lonely , some anxiety but not depression I want to live . Denies safety concerns. [place] done today scored [place] 9/30. Indicating severe cognitive impairment with deficits in all domains except language. She also scored a 4.2 on the ACLS indicate moderate functional deficits and the need for 38% cognitive assistance for problem solving, safety and ADLs/ADLs completion and consistency. She was the same outfit as yesterday. Continue complain about stomach pain, on the right side. Denies trouble voiding. No burning sensation. Simethicone 80 mg q.i.d. HS with meal as needed for gas or heartburn. Hospitalist was notified that she has a consult order in. 03/14/2025 Patient anxious and dysphoric has been on memantine BuSpar Risperdal. Hospitalist service saw the patient for abdominal pain did not feel need for further workup at this time. Seems to be tolerating medication patient does states she hopes to live with a cousin if she is not able to live with her partner. 03/15/25: Reports trouble falling asleep, but has been eating okay. Denies side effects from medications. Observed visible on the unit, attended groups, no angry moments, feeling anxious. Denies safety concerns I never want to . I love my life . Reports the boyfriend will come visit her bringing her more clothes this week. Perseverative on abdominal pain which she knows that is the chronic issues. Confirmed with her that she does not need antibiotic per hospitalist who saw her the day before. She thinks that she needs to be on antibiotic as she did the research in the past with the recommendation that she should be on antibiotic. Denies other safety concerns. Melatonin 6 mg at bedtime for sleep (reported that she takes 5 mg [id number] at home) 03/16/25 Pt with unrealistic expectations cont melatonin buspar can in [place] target mood behavior cognition consider rlower risp 03/17/25 CTP 03/18/25 ongoing confusion, mostly pleasant perseverative on abd pain- CTP 03/19/25 can inc namenda work with partner regarding return home vs placement 03/20/25 working on safe d/c planning partner feels unable to manage cont risp [place] risperadol coord with family 03/21/2025 Continue plan of care discharge planning PT consult continue Risperdal 03/22/2025 Patient with some periods of anxiety irritability not combative. Discharge planning between patient's son and her partner who is healthcare proxy 03/23/2025 Patient more easily brightening not aggressive. Has difficulty understanding current situation Continue current medication no adverse effects noted. Discharged and healthcare proxy and family 03/24: continue current management and treatment plan. 03/25: continue current management and treatment plan. 03/27/25 start aricept 5 hs hold pulse less than 55 consider mirtazapine inc anxiety irritability Informed Consent: understands Reason for continued inpatient stay Substantial Risk for: inability to function, rapid decompensation and med/psych decompensation Time Spent With Patient Time: Total time managing care of this patient today _30___ minutes.
[2025-03-27 20:00] VITALS: BP 133/68; PULSE 65; RESP 18; TEMP 36.9; O2SAT 95
[2025-03-28 08:00] VITALS: BP 112/59; PULSE 63; RESP 16; TEMP 36.3; O2SAT 96
[2025-03-28] MEDS: Propranolol HCL LA 60 MG CAP.SA.24H PO (09:06)
--- NOTE | 2025-03-28 13:00 | HO.PSYCHPN ---
Subjective Subjective Date of Service: 03/28/25 Reason For Visit: Unspecified psychosis Dementia w/ behavioral distu Subjective Notes: Conditional Voluntary Interim History: Patient with periods of some anxiety and frustration. Patient attending different groups Mental Status Exam Mental Status Exam Patient Appearance: Well Grooomed and Appropriate Patient Orientation: Person Level of Consciousness: Awake and Alert Patient Behavior: Cooperative, Distractible and Good Eye Contact Behavior Comments: Mood brighter superficially cheerful at times Mood Description: Anxious Affect Description: Constricted, Depressed and Apprehensive Patient Cognition Impaired: Yes Ability to Follow Directions: Fair Speech Pattern: Clear Memory Description: Episodic Impaired and Immediate Intact Depressive Symptoms: Increased Anxiety Judgement: Poor Diagnostics Vital Signs (24Hr): Vital Signs - 24 hr 03/27/25 20:00 03/28/25 08:00 Temperature 98.5 F 97.3 F Pulse Rate 65 63 Respiratory Rate 18 16 Blood Pressure 133/68 112/59 L Pulse Oximetry 95 96 Oxygen Delivery Method Room Air Room Air BMI result Body Mass Index 35.6 Labs 03/10/25 07:41 Medications Medications Current Medications Acetaminophen (Acetaminophen 325 Mg Tablet) 650 mg PO Q6H PRN PRN Reason: Headache/Pain, Scale 1-10 Last Admin: 03/16/25 11:27 Dose: 650 mg Al Hydroxide/Mg Hydroxide (Magnesium Hydrox/Alum Hydrox 30 Ml Oral.Susp) 30 ml PO Q6H PRN PRN Reason: Heartburn/Nausea Last Admin: 03/21/25 11:57 Dose: 30 ml Amlodipine Besylate (Amlodipine Besylate 5 Mg Tablet) 5 mg PO DAILY [facility]; Protocol Last Admin: 03/28/25 09:06 Dose: 5 mg Buspirone HCl (Buspirone Hcl 5 Mg Tablet) 15 mg PO BID [facility] Last Admin: 03/28/25 09:06 Dose: 15 mg Clotrimazole (Clotrimazole 1 % Cream 15 Gm Tube) 1 appl TOPICAL BID [facility]; Protocol Dicyclomine HCl (Dicyclomine Hcl 10 Mg Capsule) 20 mg PO BID [facility] Last Admin: 03/28/25 09:06 Dose: 20 mg Donepezil HCl (Donepezil Hcl 5 Mg Tablet) 5 mg PO BEDTIME [facility] Hydroxyzine HCl (Hydroxyzine Hcl 25 Mg Tablet) 25 mg PO Q6H PRN PRN Reason: mild anxiety Last Admin: 03/20/25 20:56 Dose: 25 mg Magnesium Hydroxide (Milk Of Magnesia 30 Ml Oral.Susp) 30 ml PO DAILY PRN PRN Reason: Constipation Melatonin (Melatonin 3 Mg Tablet) 6 mg PO BEDTIME [facility] Last Admin: 03/27/25 20:41 Dose: 6 mg Memantine (Memantine Hcl 5 Mg Tablet) 5 mg PO BID [facility] Last Admin: 03/28/25 09:07 Dose: 5 mg Mirtazapine (Mirtazapine 7.5 Mg Tablet) 7.5 mg PO BEDTIME [facility] Nicotine Polacrilex (Nicotine Polacrilex 2 Mg Gum) 2 mg BUCCAL Q2H PRN PRN Reason: Nicotine Cravings Omeprazole (Omeprazole 20 Mg Capsule.Dr) 20 mg PO DAILY [facility] Last Admin: 03/28/25 09:07 Dose: 20 mg Propranolol HCl (Propranolol Hcl La 60 Mg Cap.Sa.24h) 60 mg PO DAILY [facility]; Protocol Last Admin: 03/28/25 09:06 Dose: 60 mg Risperidone (Risperidone 0.5 Mg Tablet) 0.5 mg PO BID PRN PRN Reason: agitation Risperidone (Risperidone 1 Mg Tablet) 1 mg PO BID [facility] Last Admin: 03/28/25 09:06 Dose: 1 mg Simethicone (Simethicone 80 Mg Tab.Chew) 80 mg PO QIDWMHS PRN PRN Reason: gas/Heart burn Last Admin: 03/25/25 11:09 Dose: 80 mg Trazodone HCl (Trazodone Hcl 50 Mg Tablet) 50 mg PO BEDTIME MRX1 PRN PRN Reason: Insomnia Last Admin: 03/27/25 20:42 Dose: 50 mg Allergies Allergies Allergy/AdvReac Type Severity Reaction Status Date / Time Sulfa (Sulfonamide Allergy Severe Rash Verified 03/09/25 20:52 Antibiotics) Assessment & Plan Assessment & Plan (1) Alzheimer's dementia: Qualifiers: Alzheimer's disease onset: unspecified onset Dementia behavioral or psychological symptom: with anxiety Dementia severity: unspecified severity Qualified Code(s): G30.9 - Alzheimer's disease, unspecified; F02.84 - Dementia in other diseases classified elsewhere, unspecified severity, with anxiety Status: Acute Code(s): G30.9 - Alzheimer's disease, unspecified; F02.80 - Dementia in other diseases classified elsewhere, unspecified severity, without behavioral disturbance, psychotic disturbance, mood disturbance, and anxiety Assessment and Plan: cont memantine unclear discharge plan Plan HPI: This is the first reported psychiatric admission for this 74 year old [id number] female from [place], [place]. Patient was transferred from [facility] ED. Information was obtained from patient who isn't a reliable reclaimer due to her cognitive limitations and noted confabulation and the ED psychiatric consultation records from [facility]. Patient has a diagnosis of dementia since 2017. She reportedly left the home in [place] and drove to [place] and then back to [place]. In [place] she parked at a fire station and told 2 men there she was lost and told them her BF was stealing money from her. They called the police and patient was taken to the ED. PLAN: - Admit to inpatient psychiatry - CV - Collateral information from family and providers. - Milieu treatment and group therapy. - Medications: Continue OP regimen. - Social work evaluation. - Disposition planning. Hypertension Blood pressure has improved since arrival Patient will continue her amlodipine 5 mg daily Low-sodium diet Monitor blood pressure at least daily Tachycardia EKG requested, Sinus TACH 103, possible left atrial enlargement, Qtc 434 Suspect tachycardia secondary to patient's anxiety level Patient likely did not receive her propranolol per nursing at [facility], will order a 1 time dose of 40 mgs tonight Patient normally on propranolol 60 mg daily Patient is afebrile, no leukocytosis, UA negative at [place] Added BNP to AM labs, if elevated, may require echo Stomach cramps Continue Bentyl, chronic in presentation Patient follows with a specialist in the outpatient setting. Hospitalist consult placed today 03/12/25. Continue bowel regimen Monitor for constipation GERD Continue omeprazole Obesity Patient has made efforts to lose weight by not eating bagels or sugar Nutritional consult as needed 03/11: continue current management and treatment plan. 03/12/25: Slept well and have no issue with appetite. Focused on wanting to go home. She does not want to be here folate 30 days. Reviewed with patient criteria to get home, but need to be stabilized. Denies safety concerns, anxious but visible and pleasant upon approach. She is forgetful. 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 Also start on Memantine 5 mg daily for dementia Alzheimer. Continue with risperidone 0.5 b.i.d. p.r.n. agitation. 03/13/25: Doing well with medication changes and new Menantine. Slept through the night, was medication compliant, less focused on going home today. Feeling lonely , some anxiety but not depression I want to live . Denies safety concerns. [place] done today scored [place] 9/30. Indicating severe cognitive impairment with deficits in all domains except language. She also scored a 4.2 on the ACLS indicate moderate functional deficits and the need for 38% cognitive assistance for problem solving, safety and ADLs/ADLs completion and consistency. She was the same outfit as yesterday. Continue complain about stomach pain, on the right side. Denies trouble voiding. No burning sensation. Simethicone 80 mg q.i.d. HS with meal as needed for gas or heartburn. Hospitalist was notified that she has a consult order in. 03/14/2025 Patient anxious and dysphoric has been on memantine BuSpar Risperdal. Hospitalist service saw the patient for abdominal pain did not feel need for further workup at this time. Seems to be tolerating medication patient does states she hopes to live with a cousin if she is not able to live with her partner. 03/15/25: Reports trouble falling asleep, but has been eating okay. Denies side effects from medications. Observed visible on the unit, attended groups, no angry moments, feeling anxious. Denies safety concerns I never want to . I love my life . Reports the boyfriend will come visit her bringing her more clothes this week. Perseverative on abdominal pain which she knows that is the chronic issues. Confirmed with her that she does not need antibiotic per hospitalist who saw her the day before. She thinks that she needs to be on antibiotic as she did the research in the past with the recommendation that she should be on antibiotic. Denies other safety concerns. Melatonin 6 mg at bedtime for sleep (reported that she takes 5 mg [id number] at home) 03/16/25 Pt with unrealistic expectations cont melatonin buspar can in [place] target mood behavior cognition consider rlower risp 03/17/25 CTP 03/18/25 ongoing confusion, mostly pleasant perseverative on abd pain- CTP 03/19/25 can inc nam[place] work with partner regarding return home vs placement 03/20/25 working on safe d/c planning partner feels unable to manage cont risp [place] risperadol coord with family 03/21/2025 Continue plan of care discharge planning PT consult continue Risperdal 03/22/2025 Patient with some periods of anxiety irritability not combative. Discharge planning between patient's son and her partner who is healthcare proxy 03/23/2025 Patient more easily brightening not aggressive. Has difficulty understanding current situation Continue current medication no adverse effects noted. Discharged and healthcare proxy and family 03/24: continue current management and treatment plan. 03/25: continue current management and treatment plan. 03/27/25 start aricept 5 hs hold pulse less than 55 consider mirtazapine inc anxiety irritability 03/28/2025 Mirtazapine started for anxiety and insomnia continue Aricept [place] for mentation and behavior. Continue discharge planning Reason for continued inpatient stay Substantial Risk for: inability to function and rapid decompensation Time Spent With Patient Time: Total time managing care of this patient today ____ minutes.
[2025-03-28] MEDS: Clotrimazole 1 % Cream 15 GM TUBE 1 APPL TOPICAL ×2 (15:31→21:06)
[2025-03-28 20:00] VITALS: BP 136/70; PULSE 70; RESP 16; TEMP 36.7; O2SAT 99
[2025-03-29 08:00] VITALS: BP 121/66; PULSE 80; RESP 16; TEMP 36.2; O2SAT 96
[2025-03-29] MEDS: Propranolol HCL LA 60 MG CAP.SA.24H PO (08:48)
[2025-03-29] MEDS: Clotrimazole 1 % Cream 15 GM TUBE 1 APPL TOPICAL ×2 (08:55→20:56)
--- NOTE | 2025-03-29 10:14 | P.PNPSI_ITS ---
Subjective Subjective Date of Service: 03/29/25 Reason For Visit: Unspecified psychosis Dementia w/ behavioral distu Subjective Notes: Conditional Voluntary Interim History: Patient seen in psychiatric follow-up. Patient periods of irritability but generally engaged socially. Seems better with mirtazapine Mental Status Exam Mental Status Exam Patient Appearance: Well Grooomed and Appropriate Patient Orientation: Person Level of Consciousness: Awake and Alert Patient Behavior: Cooperative, Distractible and Good Eye Contact Behavior Comments: Mood brighter superficially cheerful at times Mood Description: Anxious Affect Description: Constricted, Depressed and Apprehensive Patient Cognition Impaired: Yes Ability to Follow Directions: Fair Speech Pattern: Clear Memory Description: Episodic Impaired and Immediate Intact Depressive Symptoms: Increased Anxiety Judgement: Poor Diagnostics Vital Signs (24Hr): Vital Signs - 24 hr 03/28/25 20:00 03/29/25 08:00 Temperature 98.1 F 97.1 F Pulse Rate 70 80 Respiratory Rate 16 16 Blood Pressure 136/70 121/66 Pulse Oximetry 99 96 Oxygen Delivery Method Room Air Room Air BMI result Body Mass Index 35.6 Labs 03/10/25 07:41 Medications Medications Current Medications Acetaminophen (Acetaminophen 325 Mg Tablet) 650 mg PO Q6H PRN PRN Reason: Headache/Pain, Scale 1-10 Last Admin: 03/16/25 11:27 Dose: 650 mg Al Hydroxide/Mg Hydroxide (Magnesium Hydrox/Alum Hydrox 30 Ml Oral.Susp) 30 ml PO Q6H PRN PRN Reason: Heartburn/Nausea Last Admin: 03/21/25 11:57 Dose: 30 ml Amlodipine Besylate (Amlodipine Besylate 5 Mg Tablet) 5 mg PO DAILY [facility]; Protocol Last Admin: 03/29/25 08:48 Dose: 5 mg Buspirone HCl (Buspirone Hcl 5 Mg Tablet) 15 mg PO BID [facility] Last Admin: 03/29/25 08:48 Dose: 15 mg Clotrimazole (Clotrimazole 1 % Cream 15 Gm Tube) 1 appl TOPICAL BID [facility]; Protocol Last Admin: 03/29/25 08:55 Dose: 1 appl Dicyclomine HCl (Dicyclomine Hcl 10 Mg Capsule) 20 mg PO BID [facility] Last Admin: 03/29/25 08:49 Dose: 20 mg Donepezil HCl (Donepezil Hcl 5 Mg Tablet) 5 mg PO BEDTIME [facility] Last Admin: 03/28/25 20:49 Dose: 5 mg Hydroxyzine HCl (Hydroxyzine Hcl 25 Mg Tablet) 25 mg PO Q6H PRN PRN Reason: mild anxiety Last Admin: 03/20/25 20:56 Dose: 25 mg Magnesium Hydroxide (Milk Of Magnesia 30 Ml Oral.Susp) 30 ml PO DAILY PRN PRN Reason: Constipation Melatonin (Melatonin 3 Mg Tablet) 6 mg PO BEDTIME [place] Last Admin: 03/28/25 20:49 Dose: 6 mg Memantine (Memantine Hcl 5 Mg Tablet) 5 mg PO BID [facility] Last Admin: 03/29/25 08:48 Dose: 5 mg Mirtazapine (Mirtazapine 7.5 Mg Tablet) 7.5 mg PO BEDTIME [facility] Last Admin: 03/28/25 20:49 Dose: 7.5 mg Nicotine Polacrilex (Nicotine Polacrilex 2 Mg Gum) 2 mg BUCCAL Q2H PRN PRN Reason: Nicotine Cravings Omeprazole (Omeprazole 20 Mg Capsule.Dr) 20 mg PO DAILY [facility] Last Admin: 03/29/25 08:49 Dose: 20 mg Propranolol HCl (Propranolol Hcl La 60 Mg Cap.Sa.24h) 60 mg PO DAILY [facility]; Protocol Last Admin: 03/29/25 08:48 Dose: 60 mg Risperidone (Risperidone 0.5 Mg Tablet) 0.5 mg PO BID PRN PRN Reason: agitation Risperidone (Risperidone 1 Mg Tablet) 1 mg PO BID [facility] Last Admin: 03/29/25 08:49 Dose: 1 mg Simethicone (Simethicone 80 Mg Tab.Chew) 80 mg PO QIDWMHS PRN PRN Reason: gas/Heart burn Last Admin: 03/25/25 11:09 Dose: 80 mg Trazodone HCl (Trazodone Hcl 50 Mg Tablet) 50 mg PO BEDTIME MRX1 PRN PRN Reason: Insomnia Last Admin: 03/27/25 20:42 Dose: 50 mg Allergies Allergies Allergy/AdvReac Type Severity Reaction Status Date / Time Sulfa (Sulfonamide Allergy Severe Rash Verified 03/09/25 20:52 Antibiotics) Assessment & Plan Assessment & Plan (1) Alzheimer's dementia: Qualifiers: Alzheimer's disease onset: unspecified onset Dementia behavioral or psychological symptom: with anxiety Dementia severity: unspecified severity Q ualified Code(s): G30.9 - Alzheimer's disease, unspecified; F02.84 - Dementia in other diseases classified elsewhere, unspecified severity, with anxiety Status: Acute Code(s): G30.9 - Alzheimer's disease, unspecified; F02.80 - Dementia in other diseases classified elsewhere, unspecified severity, without behavioral disturbance, psychotic disturbance, mood disturbance, and anxiety Assessment and Plan: cont memantine unclear discharge plan Plan HPI: This is the first reported psychiatric admission for this 74 year old [id number] female from [place], [place]. Patient was transferred from [facility] ED. Information was obtained from patient who isn't a reliable deposition reporter due to her cognitive limitations and noted confabulation and the ED psychiatric consultation records from [facility]. Patient has a diagnosis of dementia since 2017. She reportedly left the home in [place] and drove to [place] and then back to [place]. In [place] she parked at a fire station and told 2 men there she was lost and told them her BF was stealing money from her. They called the police and patient was taken to the ED. PLAN: - Admit to inpatient psychiatry - CV - Collateral information from family and providers. - Milieu treatment and group therapy. - Medications: Continue OP regimen. - Social work evaluation. - Disposition planning. Hypertension Blood pressure has improved since arrival Patient will continue her amlodipine 5 mg daily Low-sodium diet Monitor blood pressure at least daily Tachycardia EKG requested, Sinus TACH 103, possible left atrial enlargement, Qtc 434 Suspect tachycardia secondary to patient's anxiety level Patient likely did not receive her propranolol per nursing at [facility], will order a 1 time dose of 40 mgs tonight Patient normally on propranolol 60 mg daily Patient is afebrile, no leukocytosis, UA negative at [place] Added BNP to AM labs, if elevated, may require echo Stomach cramps Continue Bentyl, chronic in presentation Patient follows with a specialist in the outpatient setting. Hospitalist consult placed today 03/12/25. Continue bowel regimen Monitor for constipation GERD Continue omeprazole Obesity Patient has made efforts to lose weight by not eating bagels or sugar Nutritional consult as needed 03/11: continue current management and treatment plan. 03/12/25: Slept well and have no issue with appetite. Focused on wanting to go home. She does not want to be here folate 30 days. Reviewed with patient criteria to get home, but need to be stabilized. Denies safety concerns, anxious but visible and pleasant upon approach. She is forgetful. 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 ash worker to do collateral with the boyfriend/family Increase risperidone up to 1 mg twice a day. Also start on Memantine 5 mg daily for dementia Alzheimer. Continue with risperidone 0.5 b.i.d. p.r.n. agitation. 03/13/25: Doing well with medication changes and new Menantine. Slept through the night, was medication compliant, less focused on going home today. Feeling lonely , some anxiety but not depression I want to live . Denies safety concerns. [place] done today scored [place] 9/30. Indicating severe cognitive impairment with deficits in all domains except language. She also scored a 4.2 on the ACLS indicate moderate functional deficits and the need for 38% cognitive assistance for problem solving, safety and ADLs/ADLs completion and consistency. She was the same outfit as yesterday. Continue complain about stomach pain, on the right side. Denies trouble voiding. No burning sensation. Simethicone 80 mg q.i.d. HS with meal as needed for gas or heartburn. Hospitalist was notified that she has a consult order in. 03/14/2025 Patient anxious and dysphoric has been on memantine BuSpar Risperdal. Hospitalist service saw the patient for abdominal pain did not feel need for further workup at this time. Seems to be tolerating medication patient does states she hopes to live with a cousin if she is not able to live with her partner. 03/15/25: Reports trouble falling asleep, but has been eating okay. Denies side effects from medications. Observed visible on the unit, attended groups, no angry moments, feeling anxious. Denies safety concerns I never want to . I love my life . Reports the boyfriend will come visit her bringing her more clothes this week. Perseverative on abdominal pain which she knows that is the chronic issues. Confirmed with her that she does not need antibiotic per hospitalist who saw her the day before. She thinks that she needs to be on antibiotic as she did the research in the past with the recommendation that she should be on antibiotic. Denies other safety concerns. Melatonin 6 mg at bedtime for sleep (reported that she takes 5 mg [id number] at home) 03/16/25 Pt with unrealistic expectations cont melatonin buspar can in [place] target mood behavior cognition consider rlower risp 03/17/25 CTP 03/18/25 ongoing confusion, mostly pleasant perseverative on abd pain- CTP 03/19/25 can inc namenda work with partner regarding return home vs placement 03/20/25 working on safe d/c planning partner feels unable to manage cont risp [place] risperadol coord with family 03/21/2025 Continue plan of care discharge planning PT consult continue Risperdal 03/22/2025 Patient with some periods of anxiety irritability not combative. Discharge planning between patient's son and her partner who is healthcare proxy 03/23/2025 Patient more easily brightening not aggressive. Has difficulty understanding current situation Continue current medication no adverse effects noted. Discharged and healthcare proxy and family 03/24: continue current management and treatment plan. 03/25: continue current management and treatment plan. 03/27/25 start aricept 5 hs hold pulse less than 55 consider mirtazapine inc anxiety irritability discharge planning 03/29/2025 Discharge planning continues monitor response to mirtazapine continue memantine Reason for continued inpatient stay Substantial Risk for: inability to function, rapid decompensation and med/psych decompensation Time Spent With Patient Time: Total time managing care of this patient today ____ minutes.
[2025-03-29 20:00] VITALS: BP 140/74; PULSE 66; RESP 16; TEMP 37.4; O2SAT 95
[2025-03-30 08:00] VITALS: BP 108/55; PULSE 65; RESP 16; TEMP 36.4; O2SAT 96
[2025-03-30] MEDS: Clotrimazole 1 % Cream 15 GM TUBE 1 APPL TOPICAL (08:13)
[2025-03-30] MEDS: Magnesium Hydrox/Alum Hydrox 30 ML ORAL.SUSP PO (08:19)
[2025-03-30 09:48] VITALS: BP 118/73; PULSE 72
[2025-03-30] MEDS: Propranolol HCL LA 60 MG CAP.SA.24H PO (09:48)
[2025-03-30 09:49] VITALS: BP 118/73
[2025-03-30 20:00] VITALS: BP 162/76; PULSE 81; RESP 18; TEMP 36.2; O2SAT 96
--- NOTE | 2025-03-30 23:16 | HO.PSYCHPN ---
Subjective Subjective Date of Service: 03/30/25 Reason For Visit: Unspecified psychosis Dementia w/ behavioral distu Subjective Notes: Conditional Voluntary Healthcare Proxy: Yes Interim History: Patient is seen psychiatric follow-up chart reviewed case reviewed treatment planning. Patients son considering having her there. There are different concerns. No significant aggression noted patient with adequate appetite and social Mental Status Exam Mental Status Exam Patient Appearance: Well Grooomed and Appropriate Patient Orientation: Person Level of Consciousness: Awake and Alert Patient Behavior: Cooperative, Distractible and Good Eye Contact Behavior Comments: Mood brighter superficially cheerful at times Mood Description: Anxious Affect Description: Constricted, Depressed and Apprehensive Patient Cognition Impaired: Yes Ability to Follow Directions: Fair Speech Pattern: Clear Memory Description: Episodic Impaired and Immediate Intact Depressive Symptoms: Increased Anxiety Judgement: Poor Diagnostics Vital Signs (24Hr): Vital Signs - 24 hr 03/30/25 08:00 03/30/25 09:48 03/30/25 09:49 Temperature 97.5 F Pulse Rate 65 72 Respiratory Rate 16 Blood Pressure 108/55 L 118/73 118/73 Pulse Oximetry 96 Oxygen Delivery Method Room Air 03/30/25 20:00 Temperature 97.2 F Pulse Rate 81 Respiratory Rate 18 Blood Pressure 162/76 H Pulse Oximetry 96 Oxygen Delivery Method Room Air BMI result Body Mass Index 35.6 Labs 03/10/25 07:41 Medications Medications Current Medications Acetaminophen (Acetaminophen 325 Mg Tablet) 650 mg PO Q6H PRN PRN Reason: Headache/Pain, Scale 1-10 Last Admin: 03/16/25 11:27 Dose: 650 mg Al Hydroxide/Mg Hydroxide (Magnesium Hydrox/Alum Hydrox 30 Ml Oral.Susp) 30 ml PO Q6H PRN PRN Reason: Heartburn/Nausea Last Admin: 03/30/25 08:19 Dose: 30 ml Amlodipine Besylate (Amlodipine Besylate 5 Mg Tablet) 5 mg PO DAILY [facility]; Protocol Last Admin: 03/30/25 09:49 Dose: 5 mg Buspirone HCl (Buspirone Hcl 5 Mg Tablet) 15 mg PO BID [facility] Last Admin: 03/30/25 21:17 Dose: 15 mg Clotrimazole (Clotrimazole 1 % Cream 15 Gm Tube) 1 appl TOPICAL BID [facility]; Protocol Last Admin: 03/30/25 22:02 Dose: Not Given Dicyclomine HCl (Dicyclomine Hcl 10 Mg Capsule) 20 mg PO BID [facility] Last Admin: 03/30/25 21:17 Dose: 20 mg Donepezil HCl (Donepezil Hcl 5 Mg Tablet) 5 mg PO BEDTIME [facility] Last Admin: 03/30/25 21:17 Dose: 5 mg Hydroxyzine HCl (Hydroxyzine Hcl 25 Mg Tablet) 25 mg PO Q6H PRN PRN Reason: mild anxiety Last Admin: 03/20/25 20:56 Dose: 25 mg Magnesium Hydroxide (Milk Of Magnesia 30 Ml Oral.Susp) 30 ml PO DAILY PRN PRN Reason: Constipation Melatonin (Melatonin 3 Mg Tablet) 6 mg PO BEDTIME [facility] Last Admin: 03/30/25 21:18 Dose: 6 mg Memantine (Memantine Hcl 5 Mg Tablet) 5 mg PO BID [facility] Last Admin: 03/30/25 21:18 Dose: 5 mg Mirtazapine (Mirtazapine 7.5 Mg Tablet) 7.5 mg PO BEDTIME [facility] Last Admin: 03/30/25 21:17 Dose: 7.5 mg Nicotine Polacrilex (Nicotine Polacrilex 2 Mg Gum) 2 mg BUCCAL Q2H PRN PRN Reason: Nicotine Cravings Omeprazole (Omeprazole 20 Mg Capsule.Dr) 20 mg PO DAILY [facility] Last Admin: 03/30/25 08:13 Dose: 20 mg Propranolol HCl (Propranolol Hcl La 60 Mg Cap.Sa.24h) 60 mg PO DAILY [facility]; Protocol Last Admin: 03/30/25 09:48 Dose: 60 mg Risperidone (Risperidone 0.5 Mg Tablet) 0.5 mg PO BID PRN PRN Reason: agitation Risperidone (Risperidone 1 Mg Tablet) 1 mg PO BID [facility] Last Admin: 03/30/25 21:18 Dose: 1 mg Simethicone (Simethicone 80 Mg Tab.Chew) 80 mg PO QIDWMHS PRN PRN Reason: gas/Heart burn Last Admin: 03/30/25 08:19 Dose: 80 mg Trazodone HCl (Trazodone Hcl 50 Mg Tablet) 50 mg PO BEDTIME MRX1 PRN PRN Reason: Insomnia Last Admin: 03/27/25 20:42 Dose: 50 mg Allergies Allergies Allergy/AdvReac Type Severity Reaction Status Date / Time Sulfa (Sulfonamide Allergy Severe Rash Verified 03/09/25 20:52 Antibiotics) Assessment & Plan Assessment & Plan (1) Alzheimer's dementia: Qualifiers: Alzheimer's disease onset: unspecified onset Dementia severity: unspecified severity Dementia behavioral or psychological symptom: with anxiety Qualified Code(s): G30.9 - Alzheimer's disease, unspecified; F02.84 - Dementia in other diseases classified elsewhere, unspecified severity, with anxiety Status: Acute Code(s): G30.9 - Alzheimer's disease, unspecified; F02.80 - Dementia in other diseases classified elsewhere, unspecified severity, without behavioral disturbance, psychotic disturbance, mood disturbance, and anxiety Assessment and Plan: cont memantine unclear discharge plan Plan HPI: This is the first reported psychiatric admission for this 74 year old [id number] female from [place], [place]. Patient was transferred from [facility] ED. Information was obtained from patient who isn't a reliable television news reporter due to her cognitive limitations and noted confabulation and the ED psychiatric consultation records from [facility]. Patient has a diagnosis of dementia since 2017. She reportedly left the home in [place] and drove to [place] and then back to [place]. In [place] she parked at a fire station and told 2 men there she was lost and told them her BF was stealing money from her. They called the police and patient was taken to the ED. PLAN: - Admit to inpatient psychiatry - CV - Collateral information from family and providers. - Milieu treatment and group therapy. - Medications: Continue OP regimen. - Social work evaluation. - Disposition planning. Hypertension Blood pressure has improved since arrival Patient will continue her amlodipine 5 mg daily Low-sodium diet Monitor blood pressure at least daily Tachycardia EKG requested, Sinus TACH 103, possible left atrial enlargement, Qtc 434 Suspect tachycardia secondary to patient's anxiety level Patient likely did not receive her propranolol per nursing at [facility], will order a 1 time dose of 40 mgs tonight Patient normally on propranolol 60 mg daily Patient is afebrile, no leukocytosis, UA negative at [facility] Added BNP to AM labs, if elevated, may require echo Stomach cramps Continue Bentyl, chronic in presentation Patient follows with a specialist in the outpatient setting. Hospitalist consult placed today 03/12/25. Continue bowel regimen Monitor for constipation GERD Continue omeprazole Obesity Patient has made efforts to lose weight by not eating bagels or sugar Nutritional consult as needed 03/11: continue current management and treatment plan. 03/12/25: Slept well and have no issue with appetite. Focused on wanting to go home. She does not want to be here folate 30 days. Reviewed with patient criteria to get home, but need to be stabilized. Denies safety concerns, anxious but visible and pleasant upon approach. She is forgetful. 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 template layout worker to do collateral with the boyfriend/family Increase risperidone up to 1 mg twice a day. Also start on Memantine 5 mg daily for dementia Alzheimer. Continue with risperidone 0.5 b.i.d. p.r.n. agitation. 03/13/25: Doing well with medication changes and new Menantine. Slept through the night, was medication compliant, less focused on going home today. Feeling lonely , some anxiety but not depression I want to live . Denies safety concerns. [place] done today scored [place] 9/30. Indicating severe cognitive impairment with deficits in all domains except language. She also scored a 4.2 on the ACLS indicate moderate functional deficits and the need for 38% cognitive assistance for problem solving, safety and ADLs/ADLs completion and consistency. She was the same outfit as yesterday. Continue complain about stomach pain, on the right side. Denies trouble voiding. No burning sensation. Simethicone 80 mg q.i.d. HS with meal as needed for gas or heartburn. Hospitalist was notified that she has a consult order in. 03/14/2025 Patient anxious and dysphoric has been on memantine BuSpar Risperdal. Hospitalist service saw the patient for abdominal pain did not feel need for further workup at this time. Seems to be tolerating medication patient does states she hopes to live with a cousin if she is not able to live with her partner. 03/15/25: Reports trouble falling asleep, but has been eating okay. Denies side effects from medications. Observed visible on the unit, attended groups, no angry moments, feeling anxious. Denies safety concerns I never want to . I love my life . Reports the boyfriend will come visit her bringing her more clothes this week. Perseverative on abdominal pain which she knows that is the chronic issues. Confirmed with her that she does not need antibiotic per hospitalist who saw her the day before. She thinks that she needs to be on antibiotic as she did the research in the past with the recommendation that she should be on antibiotic. Denies other safety concerns. Melatonin 6 mg at bedtime for sleep (reported that she takes 5 mg [id number] at home) 03/16/25 Pt with unrealistic expectations cont melatonin buspar can in [place] target mood behavior cognition consider rlower risp 03/17/25 CTP 03/18/25 ongoing confusion, mostly pleasant perseverative on abd pain- CTP 03/19/25 can inc [place] work with partner regarding return home vs placement 03/20/25 working on safe d/c planning partner feels unable to manage cont risp [place] risperadol coord with family 03/21/2025 Continue plan of care discharge planning PT consult continue Risperdal 03/22/2025 Patient with some periods of anxiety irritability not combative. Discharge planning between patient's son and her partner who is healthcare proxy 03/23/2025 Patient more easily brightening not aggressive. Has difficulty understanding current situation Continue current medication no adverse effects noted. Discharged and healthcare proxy and family 03/24: continue current management and treatment plan. 03/25: continue current management and treatment plan. 03/27/25 start aricept 5 hs hold pulse less than 55 consider mirtazapine inc anxiety irritability discharge planning 03/29/2025 Discharge planning continues monitor response to mirtazapine continue memantine 03/30/2025 Continue discharge planning continue mirtazapine [place] Aricept Reason for continued inpatient stay Substantial Risk for: inability to function, rapid decompensation and med/psych decompensation Time Spent With Patient Time: Total time managing care of this patient today ____ minutes.
[2025-03-31 09:27] VITALS: BP 131/70; PULSE 69; RESP 18; TEMP 36.2; O2SAT 94
[2025-03-31] MEDS: Clotrimazole 1 % Cream 15 GM TUBE 1 APPL TOPICAL (09:29)
[2025-03-31] MEDS: Propranolol HCL LA 60 MG CAP.SA.24H PO (09:30)
--- NOTE | 2025-03-31 14:45 | P.PNPSI_ITS ---
Subjective Subjective Date of Service: 03/31/25 Reason For Visit: Unspecified psychosis Dementia w/ behavioral distu Interim History: Met with patient; discussed with team; reviewed chart Patient confused and this morning told staff she was feeling badly she did not tell her mother she left the house today. With journalists and other writers, she says definitively I am going home tomorrow but with journalists and other writers's further inquiry, she acknowledges she does not know if she is going home but hopes she is. Mental Status Exam Mental Status Exam Patient Appearance: Well Grooomed and Appropriate Patient Orientation: Person and Place (knows not at home) Level of Consciousness: Awake and Alert Patient Behavior: Cooperative, Distractible and Good Eye Contact Behavior Comments: Mood brighter superficially cheerful at times Mood Description: Anxious Affect Description: Constricted, Depressed and Apprehensive Patient Cognition Impaired: Yes Ability to Follow Directions: Fair Speech Pattern: Clear Memory Description: Episodic Impaired and Immediate Intact Thought Process: Goal Oriented Thought Content: positive for [place] (confused thoughts) Depressive Symptoms: Increased Anxiety Judgement: Poor Judgement and Insight: Impair Diagnostics Vital Signs (24Hr): Vital Signs - 24 hr 03/30/25 20:00 03/31/25 09:27 Temperature 97.2 F 97.2 F Pulse Rate 81 69 Respiratory Rate 18 18 Blood Pressure 162/76 H 131/70 Pulse Oximetry 96 94 Oxygen Delivery Method Room Air Room Air BMI result Body Mass Index 35.6 Labs 03/10/25 07:41 Medications Medications Current Medications Acetaminophen (Acetaminophen 325 Mg Tablet) 650 mg PO Q6H PRN PRN Reason: Headache/Pain, Scale 1-10 Last Admin: 03/16/25 11:27 Dose: 650 mg Al Hydroxide/Mg Hydroxide (Magnesium Hydrox/Alum Hydrox 30 Ml Oral.Susp) 30 ml PO Q6H PRN PRN Reason: Heartburn/Nausea Last Admin: 03/30/25 08:19 Dose: 30 ml Amlodipine Besylate (Amlodipine Besylate 5 Mg Tablet) 5 mg PO DAILY [facility]; Protocol Last Admin: 03/31/25 09:31 Dose: 5 mg Buspirone HCl (Buspirone Hcl 5 Mg Tablet) 15 mg PO BID [facility] Last Admin: 03/31/25 09:30 Dose: 15 mg Clotrimazole (Clotrimazole 1 % Cream 15 Gm Tube) 1 appl TOPICAL BID [facility]; Protocol Last Admin: 03/31/25 09:29 Dose: 1 appl Dicyclomine HCl (Dicyclomine Hcl 10 Mg Capsule) 20 mg PO BID [facility] Last Admin: 03/31/25 09:29 Dose: 20 mg Donepezil HCl (Donepezil Hcl 5 Mg Tablet) 5 mg PO BEDTIME [place] Last Admin: 03/30/25 21:17 Dose: 5 mg Hydroxyzine HCl (Hydroxyzine Hcl 25 Mg Tablet) 25 mg PO Q6H PRN PRN Reason: mild anxiety Last Admin: 03/20/25 20:56 Dose: 25 mg Magnesium Hydroxide (Milk Of Magnesia 30 Ml Oral.Susp) 30 ml PO DAILY PRN PRN Reason: Constipation Melatonin (Melatonin 3 Mg Tablet) 6 mg PO BEDTIME [facility] Last Admin: 03/30/25 21:18 Dose: 6 mg Memantine (Memantine Hcl 5 Mg Tablet) 5 mg PO BID [facility] Last Admin: 03/31/25 09:30 Dose: 5 mg Mirtazapine (Mirtazapine 7.5 Mg Tablet) 7.5 mg PO BEDTIME [facility] Last Admin: 03/30/25 21:17 Dose: 7.5 mg Nicotine Polacrilex (Nicotine Polacrilex 2 Mg Gum) 2 mg BUCCAL Q2H PRN PRN Reason: Nicotine Cravings Omeprazole (Omeprazole 20 Mg Capsule.Dr) 20 mg PO DAILY [facility] Last Admin: 03/31/25 09:31 Dose: 20 mg Propranolol HCl (Propranolol Hcl La 60 Mg Cap.Sa.24h) 60 mg PO DAILY [facility]; Protocol Last Admin: 03/31/25 09:30 Dose: 60 mg Risperidone (Risperidone 0.5 Mg Tablet) 0.5 mg PO BID PRN PRN Reason: agitation Risperidone (Risperidone 1 Mg Tablet) 1 mg PO BID [facility] Last Admin: 03/31/25 09:31 Dose: 1 mg Simethicone (Simethicone 80 Mg Tab.Chew) 80 mg PO QIDWMHS PRN PRN Reason: gas/Heart burn Last Admin: 03/31/25 11:00 Dose: 80 mg Trazodone HCl (Trazodone Hcl 50 Mg Tablet) 50 mg PO BEDTIME MRX1 PRN PRN Reason: Insomnia Last Admin: 03/27/25 20:42 Dose: 50 mg Allergies Allergies Allergy/AdvReac Type Severity Reaction Status Date / Time Sulfa (Sulfonamide Allergy Severe Rash Verified 03/09/25 20:52 Antibiotics) Assessment & Plan Assessment & Plan (1) Alzheimer's dementia: Qualifiers: Alzheimer's disease onset: unspecified onset Dementia behavioral or psychological symptom: with anxiety Dementia severity: unspecified severity Q ualified Code(s): G30.9 - Alzheimer's disease, unspecified; F02.84 - Dementia in other diseases classified elsewhere, unspecified severity, with anxiety Status: Acute Code(s): G30.9 - Alzheimer's disease, unspecified; F02.80 - Dementia in other diseases classified elsewhere, unspecified severity, without behavioral disturbance, psychotic disturbance, mood disturbance, and anxiety Assessment and Plan: cont memantine unclear discharge plan Plan HPI: This is the first reported psychiatric admission for this 74 year old tvfmong-[id number] female from [place], [place]. Patient was transferred from [facility] ED. Information was obtained from patient who isn't a reliable phthalic acid purifier due to her cognitive limitations and noted confabulation and the ED psychiatric consultation records from [facility]. Patient has a diagnosis of dementia since 2017. She reportedly left the home in [place] and drove to [place] and then back to [place]. In [place] she parked at a fire station and told 2 men there she was lost and told them her BF was stealing money from her. They called the police and patient was taken to the ED. PLAN: - Admit to inpatient psychiatry - CV - Collateral information from family and providers. - Milieu treatment and group therapy. - Medications: Continue OP regimen. - Social work evaluation. - Disposition planning. Hypertension Blood pressure has improved since arrival Patient will continue her amlodipine 5 mg daily Low-sodium diet Monitor blood pressure at least daily Tachycardia EKG requested, Sinus TACH 103, possible left atrial enlargement, Qtc 434 Suspect tachycardia secondary to patient's anxiety level Patient likely did not receive her propranolol per nursing at [facility], will order a 1 time dose of 40 mgs tonight Patient normally on propranolol 60 mg daily Patient is afebrile, no leukocytosis, UA negative at [place] Added BNP to AM labs, if elevated, may require echo Stomach cramps Continue Bentyl, chronic in presentation Patient follows with a specialist in the outpatient setting. Hospitalist consult placed today 03/12/25. Continue bowel regimen Monitor for constipation GERD Continue omeprazole Obesity Patient has made efforts to lose weight by not eating bagels or sugar Nutritional consult as needed 03/11: continue current management and treatment plan. 03/12/25: Slept well and have no issue with appetite. Focused on wanting to go home. She does not want to be here folate 30 days. Reviewed with patient criteria to get home, but need to be stabilized. Denies safety concerns, anxious but visible and pleasant upon approach. She is forgetful. 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 Also start on Memantine 5 mg daily for dementia Alzheimer. Continue with risperidone 0.5 b.i.d. p.r.n. agitation. 03/13/25: Doing well with medication changes and new Menantine. Slept through the night, was medication compliant, less focused on going home today. Feeling lonely , some anxiety but not depression I want to live . Denies safety concerns. [place] done today scored [place] 9/30. Indicating severe cognitive impairment with deficits in all domains except language. She also scored a 4.2 on the ACLS indicate moderate functional deficits and the need for 38% cognitive assistance for problem solving, safety and ADLs/ADLs completion and consistency. She was the same outfit as yesterday. Continue complain about stomach pain, on the right side. Denies trouble voiding. No burning sensation. Simethicone 80 mg q.i.d. HS with meal as needed for gas or heartburn. Hospitalist was notified that she has a consult order in. 03/14/2025 Patient anxious and dysphoric has been on memantine BuSpar Risperdal. Hospitalist service saw the patient for abdominal pain did not feel need for further workup at this time. Seems to be tolerating medication patient does states she hopes to live with a cousin if she is not able to live with her partner. 03/15/25: Reports trouble falling asleep, but has been eating okay. Denies side effects from medications. Observed visible on the unit, attended groups, no angry moments, feeling anxious. Denies safety concerns I never want to . I love my life . Reports the boyfriend will come visit her bringing her more clothes this week. Perseverative on abdominal pain which she knows that is the chronic issues. Confirmed with her that she does not need antibiotic per hospitalist who saw her the day before. She thinks that she needs to be on antibiotic as she did the research in the past with the recommendation that she should be on antibiotic. Denies other safety concerns. Melatonin 6 mg at bedtime for sleep (reported that she takes 5 mg [id number] at home) 03/16/25 Pt with unrealistic expectations cont melatonin buspar can in [place] target mood behavior cognition consider rlower risp 03/17/25 CTP 03/18/25 ongoing confusion, mostly pleasant perseverative on abd pain- CTP 03/19/25 can inc namenda work with partner regarding return home vs placement 03/20/25 working on safe d/c planning partner feels unable to manage cont risp [place] risperadol coord with family 03/21/2025 Continue plan of care discharge planning PT consult continue Risperdal 03/22/2025 Patient with some periods of anxiety irritability not combative. Discharge planning between patient's son and her partner who is healthcare proxy 03/23/2025 Patient more easily brightening not aggressive. Has difficulty understanding current situation Continue current medication no adverse effects noted. Discharged and healthcare proxy and family 03/24: continue current management and treatment plan. 03/25: continue current management and treatment plan. 03/27/25 start aricept 5 hs hold pulse less than 55 consider mirtazapine inc anxiety irritability discharge planning 03/29/2025 Discharge planning continues monitor response to mirtazapine continue memantine 03/30/2025 Continue discharge planning continue mirtazapine [place] Aricept 03/31 continue treatment plan Patient educated on: diagnosis Informed Consent: does not understand Reason for continued inpatient stay Substantial Risk for: inability to function Time Spent With Patient Time: Total time managing care of this patient today ____ minutes.
[2025-03-31 20:00] VITALS: BP 117/61; PULSE 67; RESP 20; TEMP 36.1; O2SAT 96
[2025-04-01 08:20] VITALS: BP 106/72; PULSE 71; RESP 16; TEMP 36.4; O2SAT 98
[2025-04-01] MEDS: Propranolol HCL LA 60 MG CAP.SA.24H PO (09:17)
[2025-04-01] MEDS: Clotrimazole 1 % Cream 15 GM TUBE 1 APPL TOPICAL ×2 (09:19→19:28)
--- NOTE | 2025-04-01 10:36 | HO.PSYCHPN ---
Subjective Subjective Date of Service: 04/01/25 Reason For Visit: Unspecified psychosis Dementia w/ behavioral distu Interim History: Met with patient; discussed with team Reviewed vitals which are grossly WNL Patient reports that she is good and has no complaints or requests; understands she is not going home today. Attending groups Mental Status Exam Mental Status Exam Patient Appearance: Well Grooomed and Appropriate Patient Orientation: Person and Place (knows not at home) Level of Consciousness: Awake and Alert Patient Behavior: Cooperative, Distractible and Good Eye Contact Behavior Comments: Mood brighter superficially cheerful at times Mood Description: Calm ( good ) Affect Description: Calm, Depressed and Apprehensive Patient Cognition Impaired: Yes Ability to Follow Directions: Fair Speech Pattern: Clear Memory Description: Episodic Impaired and Immediate Intact Thought Process: Goal Oriented Thought Content: positive for [place] (confused thoughts) and positive for Suicidal Ideation (None) Depressive Symptoms: Increased Anxiety Judgement: Poor Judgement and Insight: Impair Diagnostics Vital Signs (24Hr): Vital Signs - 24 hr 03/31/25 20:00 04/01/25 08:20 Temperature 97 F 97.5 F Pulse Rate 67 71 Respiratory Rate 20 16 Blood Pressure 117/61 106/72 Pulse Oximetry 96 98 Oxygen Delivery Method Room Air Room Air BMI result Body Mass Index 35.6 Labs 03/10/25 07:41 Medications Medications Current Medications Acetaminophen (Acetaminophen 325 Mg Tablet) 650 mg PO Q6H PRN PRN Reason: Headache/Pain, Scale 1-10 Last Admin: 03/16/25 11:27 Dose: 650 mg Al Hydroxide/Mg Hydroxide (Magnesium Hydrox/Alum Hydrox 30 Ml Oral.Susp) 30 ml PO Q6H PRN PRN Reason: Heartburn/Nausea Last Admin: 03/30/25 08:19 Dose: 30 ml Amlodipine Besylate (Amlodipine Besylate 5 Mg Tablet) 5 mg PO DAILY [facility]; Protocol Last Admin: 04/01/25 09:18 Dose: 5 mg Buspirone HCl (Buspirone Hcl 5 Mg Tablet) 15 mg PO BID [facility] Last Admin: 04/01/25 09:16 Dose: 15 mg Clotrimazole (Clotrimazole 1 % Cream 15 Gm Tube) 1 appl TOPICAL BID [facility]; Protocol Last Admin: 04/01/25 09:19 Dose: 1 appl Dicyclomine HCl (Dicyclomine Hcl 10 Mg Capsule) 20 mg PO BID [facility] Last Admin: 04/01/25 09:17 Dose: 20 mg Donepezil HCl (Donepezil Hcl 5 Mg Tablet) 5 mg PO BEDTIME [facility] Last Admin: 03/31/25 20:25 Dose: 5 mg Hydroxyzine HCl (Hydroxyzine Hcl 25 Mg Tablet) 25 mg PO Q6H PRN PRN Reason: mild anxiety Last Admin: 03/20/25 20:56 Dose: 25 mg Magnesium Hydroxide (Milk Of Magnesia 30 Ml Oral.Susp) 30 ml PO DAILY PRN PRN Reason: Constipation Melatonin (Melatonin 3 Mg Tablet) 6 mg PO BEDTIME [facility] Last Admin: 03/31/25 20:24 Dose: 6 mg Memantine (Memantine Hcl 5 Mg Tablet) 5 mg PO BID [facility] Last Admin: 04/01/25 09:17 Dose: 5 mg Mirtazapine (Mirtazapine 7.5 Mg Tablet) 7.5 mg PO BEDTIME [facility] Last Admin: 03/31/25 20:25 Dose: 7.5 mg Nicotine Polacrilex (Nicotine Polacrilex 2 Mg Gum) 2 mg BUCCAL Q2H PRN PRN Reason: Nicotine Cravings Omeprazole (Omeprazole 20 Mg Capsule.Dr) 20 mg PO DAILY [facility] Last Admin: 04/01/25 09:19 Dose: 20 mg Propranolol HCl (Propranolol Hcl La 60 Mg Cap.Sa.24h) 60 mg PO DAILY [facility]; Protocol Last Admin: 04/01/25 09:17 Dose: 60 mg Risperidone (Risperidone 0.5 Mg Tablet) 0.5 mg PO BID PRN PRN Reason: agitation Risperidone (Risperidone 1 Mg Tablet) 1 mg PO BID [facility] Last Admin: 04/01/25 09:19 Dose: 1 mg Simethicone (Simethicone 80 Mg Tab.Chew) 80 mg PO QIDWMHS PRN PRN Reason: gas/Heart burn Last Admin: 03/31/25 11:00 Dose: 80 mg Trazodone HCl (Trazodone Hcl 50 Mg Tablet) 50 mg PO BEDTIME MRX1 PRN PRN Reason: Insomnia Last Admin: 03/27/25 20:42 Dose: 50 mg Allergies Allergies Allergy/AdvReac Type Severity Reaction Status Date / Time Sulfa (Sulfonamide Allergy Severe Rash Verified 03/09/25 20:52 Antibiotics) Assessment & Plan Assessment & Plan (1) Alzheimer's dementia: Qualifiers: Alzheimer's disease onset: unspecified onset Dementia behavioral or psychological symptom: with anxiety Dementia severity: unspecified severity Qualified Code(s): G30.9 - Alzheimer's disease, unspecified; F02.84 - Dementia in other diseases classified elsewhere, unspecified severity, with anxiety Status: Acute Code(s): G30.9 - Alzheimer's disease, unspecified; F02.80 - Dementia in other diseases classified elsewhere, unspecified severity, without behavioral disturbance, psychotic disturbance, mood disturbance, and anxiety Assessment and Plan: cont memantine unclear discharge plan Plan HPI: This is the first reported psychiatric admission for this 74 year old ajwvach-aek-vsviwipiv female from [place], [place]. Patient was transferred from [facility] ED. Information was obtained from patient who isn't a reliable aerosol supervisor due to her cognitive limitations and noted confabulation and the ED psychiatric consultation records from [facility]. Patient has a diagnosis of dementia since 2017. She reportedly left the home in [place] and drove to [place] and then back to [place]. In [place] she parked at a fire station and told 2 men there she was lost and told them her BF was stealing money from her. They called the police and patient was taken to the ED. PLAN: - Admit to inpatient psychiatry - CV - Collateral information from family and providers. - Milieu treatment and group therapy. - Medications: Continue OP regimen. - Social work evaluation. - Disposition planning. Hypertension Blood pressure has improved since arrival Patient will continue her amlodipine 5 mg daily Low-sodium diet Monitor blood pressure at least daily Tachycardia EKG requested, Sinus TACH 103, possible left atrial enlargement, Qtc 434 Suspect tachycardia secondary to patient's anxiety level Patient likely did not receive her propranolol per nursing at [facility], will order a 1 time dose of 40 mgs tonight Patient normally on propranolol 60 mg daily Patient is afebrile, no leukocytosis, UA negative at [place] Added BNP to AM labs, if elevated, may require echo Stomach cramps Continue Bentyl, chronic in presentation Patient follows with a specialist in the outpatient setting. Hospitalist consult placed today 03/12/25. Continue bowel regimen Monitor for constipation GERD Continue omeprazole Obesity Patient has made efforts to lose weight by not eating bagels or sugar Nutritional consult as needed 03/11: continue current management and treatment plan. 03/12/25: Slept well and have no issue with appetite. Focused on wanting to go home. She does not want to be here folate 30 days. Reviewed with patient criteria to get home, but need to be stabilized. Denies safety concerns, anxious but visible and pleasant upon approach. She is forgetful. 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 Also start on Memantine 5 mg daily for dementia Alzheimer. Continue with risperidone 0.5 b.i.d. p.r.n. agitation. 03/13/25: Doing well with medication changes and new Menantine. Slept through the night, was medication compliant, less focused on going home today. Feeling lonely , some anxiety but not depression I want to live . Denies safety concerns. [place] done today scored [place] 9/30. Indicating severe cognitive impairment with deficits in all domains except language. She also scored a 4.2 on the ACLS indicate moderate functional deficits and the need for 38% cognitive assistance for problem solving, safety and ADLs/ADLs completion and consistency. She was the same outfit as yesterday. Continue complain about stomach pain, on the right side. Denies trouble voiding. No burning sensation. Simethicone 80 mg q.i.d. HS with meal as needed for gas or heartburn. Hospitalist was notified that she has a consult order in. 03/14/2025 Patient anxious and dysphoric has been on memantine BuSpar Risperdal. Hospitalist service saw the patient for abdominal pain did not feel need for further workup at this time. Seems to be tolerating medication patient does states she hopes to live with a cousin if she is not able to live with her partner. 03/15/25: Reports trouble falling asleep, but has been eating okay. Denies side effects from medications. Observed visible on the unit, attended groups, no angry moments, feeling anxious. Denies safety concerns I never want to . I love my life . Reports the boyfriend will come visit her bringing her more clothes this week. Perseverative on abdominal pain which she knows that is the chronic issues. Confirmed with her that she does not need antibiotic per hospitalist who saw her the day before. She thinks that she needs to be on antibiotic as she did the research in the past with the recommendation that she should be on antibiotic. Denies other safety concerns. Melatonin 6 mg at bedtime for sleep (reported that she takes 5 mg [id number] at home) 03/16/25 Pt with unrealistic expectations cont melatonin buspar can in namenda target mood behavior cognition consider rlower risp 03/17/25 CTP 03/18/25 ongoing confusion, mostly pleasant perseverative on abd pain- CTP 03/19/25 can inc namenda work with partner regarding return home vs placement 03/20/25 working on safe d/c planning partner feels unable to manage cont risp [place] risperadol coord with family 03/21/2025 Continue plan of care discharge planning PT consult continue Risperdal 03/22/2025 Patient with some periods of anxiety irritability not combative. Discharge planning between patient's son and her partner who is healthcare proxy 03/23/2025 Patient more easily brightening not aggressive. Has difficulty understanding current situation Continue current medication no adverse effects noted. Discharged and healthcare proxy and family 03/24: continue current management and treatment plan. 03/25: continue current management and treatment plan. 03/27/25 start aricept 5 hs hold pulse less than 55 consider mirtazapine inc anxiety irritability discharge planning 03/29/2025 Discharge planning continues monitor response to mirtazapine continue memantine 03/30/2025 Continue discharge planning continue mirtazapine [place] Aricept 03/31 continue treatment plan 04/01 CTP Reason for continued inpatient stay Substantial Risk for: inability to function Time Spent With Patient Time: Total time managing care of this patient today ____ minutes.
[2025-04-01 19:24] VITALS: BP 138/70; PULSE 67; RESP 16; TEMP 35.9; O2SAT 96
[2025-04-02 08:33] VITALS: BP 150/72; PULSE 80; RESP 18; TEMP 36.3; O2SAT 97
[2025-04-02] MEDS: Propranolol HCL LA 60 MG CAP.SA.24H PO (09:12)
--- NOTE | 2025-04-02 13:39 | P.PNPSI_ITS ---
Subjective Subjective Date of Service: 04/02/25 Reason For Visit: Unspecified psychosis Dementia w/ behavioral distu Interim History: Patient's case reviewed in treatment planning chart reviewed patient seen. Patient with poor short-term memory but socially engaged not aggressive Mental Status Exam Mental Status Exam Patient Appearance: Well Grooomed and Appropriate Patient Orientation: Person and Place (knows not at home) Level of Consciousness: Awake and Alert Patient Behavior: Cooperative, Distractible and Good Eye Contact Behavior Comments: Mood brighter superficially cheerful at times Mood Description: Calm ( good ) Affect Description: Calm, Depressed and Apprehensive Patient Cognition Impaired: Yes Ability to Follow Directions: Fair Speech Pattern: Clear Memory Description: Episodic Impaired and Immediate Intact Thought Process: Goal Oriented Thought Content: positive for [place] (confused thoughts) and positive for Suicidal Ideation (None) Depressive Symptoms: Increased Anxiety Judgement: Poor Judgement and Insight: Impair Diagnostics Vital Signs (24Hr): Vital Signs - 24 hr 04/01/25 19:24 04/02/25 08:33 Temperature 96.7 F L 97.4 F Pulse Rate 67 80 Respiratory Rate 16 18 Blood Pressure 138/70 150/72 H Pulse Oximetry 96 97 Oxygen Delivery Method Room Air Room Air BMI result Body Mass Index 35.6 Labs 03/10/25 07:41 Medications Medications Current Medications Acetaminophen (Acetaminophen 325 Mg Tablet) 650 mg PO Q6H PRN PRN Reason: Headache/Pain, Scale 1-10 Last Admin: 03/16/25 11:27 Dose: 650 mg Al Hydroxide/Mg Hydroxide (Magnesium Hydrox/Alum Hydrox 30 Ml Oral.Susp) 30 ml PO Q6H PRN PRN Reason: Heartburn/Nausea Last Admin: 03/30/25 08:19 Dose: 30 ml Amlodipine Besylate (Amlodipine Besylate 5 Mg Tablet) 5 mg PO DAILY [facility]; Protocol Last Admin: 04/02/25 09:13 Dose: 5 mg Buspirone HCl (Buspirone Hcl 5 Mg Tablet) 15 mg PO BID [facility] Last Admin: 04/02/25 09:11 Dose: 15 mg Clotrimazole (Clotrimazole 1 % Cream 15 Gm Tube) 1 appl TOPICAL BID [facility]; Protocol Last Admin: 04/02/25 09:28 Dose: Not Given Dicyclomine HCl (Dicyclomine Hcl 10 Mg Capsule) 20 mg PO BID [facility] Last Admin: 04/02/25 09:12 Dose: 20 mg Donepezil HCl (Donepezil Hcl 5 Mg Tablet) 5 mg PO BEDTIME [facility] Last Admin: 04/01/25 19:27 Dose: 5 mg Hydroxyzine HCl (Hydroxyzine Hcl 25 Mg Tablet) 25 mg PO Q6H PRN PRN Reason: mild anxiety Last Admin: 03/20/25 20:56 Dose: 25 mg Magnesium Hydroxide (Milk Of Magnesia 30 Ml Oral.Susp) 30 ml PO DAILY PRN PRN Reason: Constipation Melatonin (Melatonin 3 Mg Tablet) 6 mg PO BEDTIME [facility] Last Admin: 04/01/25 19:27 Dose: 6 mg Memantine (Memantine Hcl 5 Mg Tablet) 5 mg PO BID [facility] Last Admin: 04/02/25 09:13 Dose: 5 mg Mirtazapine (Mirtazapine 7.5 Mg Tablet) 7.5 mg PO BEDTIME [facility] Last Admin: 04/01/25 19:27 Dose: 7.5 mg Nicotine Polacrilex (Nicotine Polacrilex 2 Mg Gum) 2 mg BUCCAL Q2H PRN PRN Reason: Nicotine Cravings Omeprazole (Omeprazole 20 Mg Capsule.Dr) 20 mg PO DAILY [facility] Last Admin: 04/02/25 09:12 Dose: 20 mg Propranolol HCl (Propranolol Hcl La 60 Mg Cap.Sa.24h) 60 mg PO DAILY [facility]; Protocol Last Admin: 04/02/25 09:12 Dose: 60 mg Risperidone (Risperidone 0.5 Mg Tablet) 0.5 mg PO BID PRN PRN Reason: agitation Risperidone (Risperidone 1 Mg Tablet) 1 mg PO BID [facility] Last Admin: 04/02/25 09:13 Dose: 1 mg Simethicone (Simethicone 80 Mg Tab.Chew) 80 mg PO TIDWM [facility] Last Admin: 04/02/25 11:36 Dose: 80 mg Trazodone HCl (Trazodone Hcl 50 Mg Tablet) 50 mg PO BEDTIME MRX1 PRN PRN Reason: Insomnia Last Admin: 03/27/25 20:42 Dose: 50 mg Allergies Allergies Allergy/AdvReac Type Severity Reaction Status Date / Time Sulfa (Sulfonamide Allergy Severe Rash Verified 03/09/25 20:52 Antibiotics) Assessment & Plan Assessment & Plan (1) Alzheimer's dementia: Qualifiers: Alzheimer's disease onset: unspecified onset Dementia behavioral or psychological symptom: with anxiety Dementia severity: unspecified severity Q ualified Code(s): G30.9 - Alzheimer's disease, unspecified; F02.84 - Dementia in other diseases classified elsewhere, unspecified severity, with anxiety Status: Acute Code(s): G30.9 - Alzheimer's disease, unspecified; F02.80 - Dementia in other diseases classified elsewhere, unspecified severity, without behavioral disturbance, psychotic disturbance, mood disturbance, and anxiety Assessment and Plan: cont memantine unclear discharge plan Plan HPI: This is the first reported psychiatric admission for this 74 year old [id number] female from [place], [place]. Patient was transferred from [facility] ED. Information was obtained from patient who isn't a reliable associate pathologist due to her cognitive limitations and noted confabulation and the ED psychiatric consultation records from [facility]. Patient has a diagnosis of dementia since 2017. She reportedly left the home in [place] and drove to [place] and then back to [place]. In [place] she parked at a fire station and told 2 men there she was lost and told them her BF was stealing money from her. They called the police and patient was taken to the ED. PLAN: - Admit to inpatient psychiatry - CV - Collateral information from family and providers. - Milieu treatment and group therapy. - Medications: Continue OP regimen. - Social work evaluation. - Disposition planning. Hypertension Blood pressure has improved since arrival Patient will continue her amlodipine 5 mg daily Low-sodium diet Monitor blood pressure at least daily Tachycardia EKG requested, Sinus TACH 103, possible left atrial enlargement, Qtc 434 Suspect tachycardia secondary to patient's anxiety level Patient likely did not receive her propranolol per nursing at [facility], will order a 1 time dose of 40 mgs tonight Patient normally on propranolol 60 mg daily Patient is afebrile, no leukocytosis, UA negative at [place] Added BNP to AM labs, if elevated, may require echo Stomach cramps Continue Bentyl, chronic in presentation Patient follows with a specialist in the outpatient setting. Hospitalist consult placed today 03/12/25. Continue bowel regimen Monitor for constipation GERD Continue omeprazole Obesity Patient has made efforts to lose weight by not eating bagels or sugar Nutritional consult as needed 03/11: continue current management and treatment plan. 03/12/25: Slept well and have no issue with appetite. Focused on wanting to go home. She does not want to be here folate 30 days. Reviewed with patient criteria to get home, but need to be stabilized. Denies safety concerns, anxious but visible and pleasant upon approach. She is forgetful. 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 Also start on Memantine 5 mg daily for dementia Alzheimer. Continue with risperidone 0.5 b.i.d. p.r.n. agitation. 03/13/25: Doing well with medication changes and new Menantine. Slept through the night, was medication compliant, less focused on going home today. Feeling lonely , some anxiety but not depression I want to live . Denies safety concerns. [place] done today scored [place] 9/30. Indicating severe cognitive impairment with deficits in all domains except language. She also scored a 4.2 on the ACLS indicate moderate functional deficits and the need for 38% cognitive assistance for problem solving, safety and ADLs/ADLs completion and consistency. She was the same outfit as yesterday. Continue complain about stomach pain, on the right side. Denies trouble voiding. No burning sensation. Simethicone 80 mg q.i.d. HS with meal as needed for gas or heartburn. Hospitalist was notified that she has a consult order in. 03/14/2025 Patient anxious and dysphoric has been on memantine BuSpar Risperdal. Hospitalist service saw the patient for abdominal pain did not feel need for further workup at this time. Seems to be tolerating medication patient does states she hopes to live with a cousin if she is not able to live with her partner. 03/15/25: Reports trouble falling asleep, but has been eating okay. Denies side effects from medications. Observed visible on the unit, attended groups, no angry moments, feeling anxious. Denies safety concerns I never want to . I love my life . Reports the boyfriend will come visit her bringing her more clothes this week. Perseverative on abdominal pain which she knows that is the chronic issues. Confirmed with her that she does not need antibiotic per hospitalist who saw her the day before. She thinks that she needs to be on antibiotic as she did the research in the past with the recommendation that she should be on antibiotic. Denies other safety concerns. Melatonin 6 mg at bedtime for sleep (reported that she takes 5 mg [id number] at home) 03/16/25 Pt with unrealistic expectations cont melatonin buspar can in [place] target mood behavior cognition consider rlower risp 03/17/25 CTP 03/18/25 ongoing confusion, mostly pleasant perseverative on abd pain- CTP 03/19/25 can inc nam[place] work with partner regarding return home vs placement 03/20/25 working on safe d/c planning partner feels unable to manage cont risp [place] risperadol coord with family 03/21/2025 Continue plan of care discharge planning PT consult continue Risperdal 03/22/2025 Patient with some periods of anxiety irritability not combative. Discharge planning between patient's son and her partner who is healthcare proxy 03/23/2025 Patient more easily brightening not aggressive. Has difficulty understanding current situation Continue current medication no adverse effects noted. Discharged and healthcare proxy and family 03/24: continue current management and treatment plan. 03/25: continue current management and treatment plan. 03/27/25 start aricept 5 hs hold pulse less than 55 consider mirtazapine inc anxiety irritability discharge planning 03/29/2025 Discharge planning continues monitor response to mirtazapine continue memantine 03/30/2025 Continue di scharge planning continue mirtazapine [place] Aricept 03/31 continue treatment plan 04/01 CTP 04/02/2025 Continue discharge planning no less restrictive setting at this time continue [place] Aricept Risperdal Reason for continued inpatient stay Substantial Risk for: inability to function and rapid decompensation Time Spent With Patient Time: Total time managing care of this patient today ____ minutes.
[2025-04-02 20:10] VITALS: BP 140/74; PULSE 69; RESP 16; TEMP 36.3; O2SAT 98
[2025-04-02] MEDS: Clotrimazole 1 % Cream 15 GM TUBE 1 APPL TOPICAL (20:12)
[2025-04-03 08:10] VITALS: BP 114/57; PULSE 65; RESP 16; TEMP 36.7; O2SAT 98
[2025-04-03] MEDS: Propranolol HCL LA 60 MG CAP.SA.24H PO (08:51)
[2025-04-03] MEDS: Clotrimazole 1 % Cream 15 GM TUBE 1 APPL TOPICAL ×2 (08:53→20:44)
--- NOTE | 2025-04-03 16:48 | HO.PSYCHPN ---
Subjective Subjective Date of Service: 04/03/25 Reason For Visit: Unspecified psychosis Dementia w/ behavioral distu Subjective Notes: Conditional Voluntary Healthcare Proxy: Yes Interim History: pt is doing ok has cold sx social on the unit sleeping appetite ok Medication Compliance: Yes Side effects from medications: Yes Diagnostics Vital Signs (24Hr): Vital Signs - 24 hr 04/02/25 20:10 04/03/25 08:10 Temperature 97.3 F 98.1 F Pulse Rate 69 65 Respiratory Rate 16 16 Blood Pressure 140/74 H 114/57 L Pulse Oximetry 98 98 Oxygen Delivery Method Room Air Room Air BMI result Body Mass Index 35.6 Labs 03/10/25 07:41 Medications Medications Current Medications Acetaminophen (Acetaminophen 325 Mg Tablet) 650 mg PO Q6H PRN PRN Reason: Headache/Pain, Scale 1-10 Last Admin: 03/16/25 11:27 Dose: 650 mg Al Hydroxide/Mg Hydroxide (Magnesium Hydrox/Alum Hydrox 30 Ml Oral.Susp) 30 ml PO Q6H PRN PRN Reason: Heartburn/Nausea Last Admin: 03/30/25 08:19 Dose: 30 ml Amlodipine Besylate (Amlodipine Besylate 5 Mg Tablet) 5 mg PO DAILY [facility]; Protocol Last Admin: 04/03/25 08:52 Dose: 5 mg Buspirone HCl (Buspirone Hcl 5 Mg Tablet) 15 mg PO BID [facility] Last Admin: 04/03/25 08:47 Dose: 15 mg Clotrimazole (Clotrimazole 1 % Cream 15 Gm Tube) 1 appl TOPICAL BID [facility]; Protocol Last Admin: 04/03/25 08:53 Dose: 1 appl Dicyclomine HCl (Dicyclomine Hcl 10 Mg Capsule) 20 mg PO BID [facility] Last Admin: 04/03/25 08:48 Dose: 20 mg Donepezil HCl (Donepezil Hcl 5 Mg Tablet) 5 mg PO BEDTIME [facility] Last Admin: 04/02/25 20:11 Dose: 5 mg Hydroxyzine HCl (Hydroxyzine Hcl 25 Mg Tablet) 25 mg PO Q6H PRN PRN Reason: mild anxiety Last Admin: 03/20/25 20:56 Dose: 25 mg Magnesium Hydroxide (Milk Of Magnesia 30 Ml Oral.Susp) 30 ml PO DAILY PRN PRN Reason: Constipation Melatonin (Melatonin 3 Mg Tablet) 6 mg PO BEDTIME [facility] Last Admin: 04/02/25 20:12 Dose: 6 mg Memantine (Memantine Hcl 5 Mg Tablet) 5 mg PO BID [facility] Last Admin: 04/03/25 08:53 Dose: 5 mg Mirtazapine (Mirtazapine 7.5 Mg Tablet) 7.5 mg PO BEDTIME [facility] Last Admin: 04/02/25 20:11 Dose: 7.5 mg Nicotine Polacrilex (Nicotine Polacrilex 2 Mg Gum) 2 mg BUCCAL Q2H PRN PRN Reason: Nicotine Cravings Omeprazole (Omeprazole 20 Mg Capsule.Dr) 20 mg PO DAILY [facility] Last Admin: 04/03/25 08:51 Dose: 20 mg Propranolol HCl (Propranolol Hcl La 60 Mg Cap.Sa.24h) 60 mg PO DAILY [facility]; Protocol Last Admin: 04/03/25 08:51 Dose: 60 mg Risperidone (Risperidone 0.5 Mg Tablet) 0.5 mg PO BID PRN PRN Reason: agitation Risperidone (Risperidone 1 Mg Tablet) 1 mg PO BID [facility] Last Admin: 04/03/25 08:52 Dose: 1 mg Simethicone (Simethicone 80 Mg Tab.Chew) 80 mg PO TIDWM [facility] Last Admin: 04/03/25 16:34 Dose: 80 mg Trazodone HCl (Trazodone Hcl 50 Mg Tablet) 50 mg PO BEDTIME MRX1 PRN PRN Reason: Insomnia Last Admin: 03/27/25 20:42 Dose: 50 mg Allergies Allergies Allergy/AdvReac Type Severity Reaction Status Date / Time Sulfa (Sulfonamide Allergy Severe Rash Verified 03/09/25 20:52 Antibiotics) Assessment & Plan Assessment & Plan (1) Alzheimer's dementia: Qualifiers: Alzheimer's disease onset: unspecified onset Dementia behavioral or psychological symptom: with anxiety Dementia severity: unspecified severity Qualified Code(s): G30.9 - Alzheimer's disease, unspecified; F02.84 - Dementia in other diseases classified elsewhere, unspecified severity, with anxiety Status: Acute Code(s): G30.9 - Alzheimer's disease, unspecified; F02.80 - Dementia in other diseases classified elsewhere, unspecified severity, without behavioral disturbance, psychotic disturbance, mood disturbance, and anxiety Assessment and Plan: cont memantine unclear discharge plan Plan HPI: This is the first reported psychiatric admission for this 74 year old [id number] female from [place], [place]. Patient was transferred from [facility] ED. Information was obtained from patient who isn't a reliable reporter anchor due to her cognitive limitations and noted confabulation and the ED psychiatric consultation records from [facility]. Patient has a diagnosis of dementia since 2017. She reportedly left the home in [place] and drove to [place] and then back to [place]. In [place] she parked at a fire station and told 2 men there she was lost and told them her BF was stealing money from her. They called the police and patient was taken to the ED. PLAN: - Admit to inpatient psychiatry - CV - Collateral information from family and providers. - Milieu treatment and group therapy. - Medications: Continue OP regimen. - Social work evaluation. - Disposition planning. Hypertension Blood pressure has improved since arrival Patient will continue her amlodipine 5 mg daily Low-sodium diet Monitor blood pressure at least daily Tachycardia EKG requested, Sinus TACH 103, possible left atrial enlargement, Qtc 434 Suspect tachycardia secondary to patient's anxiety level Patient likely did not receive her propranolol per nursing at [facility], will order a 1 time dose of 40 mgs tonight Patient normally on propranolol 60 mg daily Patient is afebrile, no leukocytosis, UA negative at [place] Added BNP to AM labs, if elevated, may require echo Stomach cramps Continue Bentyl, chronic in presentation Patient follows with a specialist in the outpatient setting. Hospitalist consult placed today 03/12/25. Continue bowel regimen Monitor for constipation GERD Continue omeprazole Obesity Patient has made efforts to lose weight by not eating bagels or sugar Nutritional consult as needed 03/11: continue current management and treatment plan. 03/12/25: Slept well and have no issue with appetite. Focused on wanting to go home. She does not want to be here folate 30 days. Reviewed with patient criteria to get home, but need to be stabilized. Denies safety concerns, anxious but visible and pleasant upon approach. She is forgetful. 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 Also start on Memantine 5 mg daily for dementia Alzheimer. Continue with risperidone 0.5 b.i.d. p.r.n. agitation. 03/13/25: Doing well with medication changes and new Menantine. Slept through the night, was medication compliant, less focused on going home today. Feeling lonely , some anxiety but not depression I want to live . Denies safety concerns. [place] done today scored [place] 9/30. Indicating severe cognitive impairment with deficits in all domains except language. She also scored a 4.2 on the ACLS indicate moderate functional deficits and the need for 38% cognitive assistance for problem solving, safety and ADLs/ADLs completion and consistency. She was the same outfit as yesterday. Continue complain about stomach pain, on the right side. Denies trouble voiding. No burning sensation. Simethicone 80 mg q.i.d. HS with meal as needed for gas or heartburn. Hospitalist was notified that she has a consult order in. 03/14/2025 Patient anxious and dysphoric has been on memantine BuSpar Risperdal. Hospitalist service saw the patient for abdominal pain did not feel need for further workup at this time. Seems to be tolerating medication patient does states she hopes to live with a cousin if she is not able to live with her partner. 03/15/25: Reports trouble falling asleep, but has been eating okay. Denies side effects from medications. Observed visible on the unit, attended groups, no angry moments, feeling anxious. Denies safety concerns I never want to . I love my life . Reports the boyfriend will come visit her bringing her more clothes this week. Perseverative on abdominal pain which she knows that is the chronic issues. Confirmed with her that she does not need antibiotic per hospitalist who saw her the day before. She thinks that she needs to be on antibiotic as she did the research in the past with the recommendation that she should be on antibiotic. Denies other safety concerns. Melatonin 6 mg at bedtime for sleep (reported that she takes 5 mg [id number] at home) 03/16/25 Pt with unrealistic expectations cont melatonin buspar can in [place] target mood behavior cognition consider rlower risp 03/17/25 CTP 03/18/25 ongoing confusion, mostly pleasant perseverative on abd pain- CTP 03/19/25 can inc [place] work with partner regarding return home vs placement 03/20/25 working on safe d/c planning partner feels unable to manage cont risp [place] risperadol coord with family 03/21/2025 Continue plan of care discharge planning PT consult continue Risperdal 03/22/2025 Patient with some periods of anxiety irritability not combative. Discharge planning between patient's son and her partner who is healthcare proxy 03/23/2025 Patient more easily brightening not aggressive. Has difficulty understanding current situation Continue current medication no adverse effects noted. Discharged and healthcare proxy and family 03/24: continue current management and treatment plan. 03/25: continue current management and treatment plan. 03/27/25 start aricept 5 hs hold pulse less than 55 consider mirtazapine inc anxiety irritability discharge planning 03/29/2025 Discharge planning continues monitor response to mirtazapine continue memantine 03/30/2025 Continue di scharge planning continue mirtazapine [place] Aricept 03/31 continue treatment plan 04/01 CTP 04/02/2025 Continue discharge planning no less restrictive setting at this time continue [place] Aricept Risperdal 04/03/25 Pt cooperative with care continue discharge planning Informed Consent: further education needed Reason for continued inpatient stay Substantial Risk for: inability to function and rapid decompensation Time Spent With Patient Time: Total time managing care of this patient today ____ minutes.
[2025-04-03 20:00] VITALS: BP 114/61; PULSE 60; RESP 16; TEMP 36.3; O2SAT 95
[2025-04-04 08:15] VITALS: BP 107/61; PULSE 77; RESP 16; TEMP 36.4; O2SAT 97
[2025-04-04] MEDS: Clotrimazole 1 % Cream 15 GM TUBE 1 APPL TOPICAL ×2 (08:35→20:27)
[2025-04-04] MEDS: Propranolol HCL LA 60 MG CAP.SA.24H PO (08:37)
[2025-04-04] MEDS: guaiFENesin 100 MG/5 ML 5 ML LIQUID PO ×2 (12:12→16:29)
--- NOTE | 2025-04-04 12:14 | P.PNPSI_ITS ---
Subjective Subjective Date of Service: 04/04/25 Reason For Visit: Unspecified psychosis Dementia w/ behavioral distu Subjective Notes: Conditional Voluntary Interim History: Patient seen psychiatric follow-up has been patient understanding that family is helping with discharge planning. Patient social on the unit some periods of depression and anxiety tolerating current regimen Mental Status Exam Mental Status Exam Patient Appearance: Well Grooomed and Appropriate Patient Orientation: Person and Place (knows not at home) Level of Consciousness: Awake and Alert Patient Behavior: Cooperative, Distractible and Good Eye Contact Behavior Comments: Mood brighter superficially cheerful at times Mood Description: Calm ( good ) Affect Description: Calm, Depressed and Apprehensive Patient Cognition Impaired: Yes Ability to Follow Directions: Fair Speech Pattern: Clear Memory Description: Episodic Impaired and Immediate Intact Thought Process: Goal Oriented Thought Content: positive for Logan (confused thoughts) and positive for Suicidal Ideation (None) Depressive Symptoms: Increased Anxiety Judgement: Poor Judgement and Insight: Impair Diagnostics Vital Signs (24Hr): Vital Signs - 24 hr 04/03/25 20:00 04/04/25 08:15 Temperature 97.4 F 97.6 F Pulse Rate 60 77 Respiratory Rate 16 16 Blood Pressure 114/61 107/61 Pulse Oximetry 95 97 Oxygen Delivery Method Room Air Room Air BMI result Body Mass Index 35.6 Labs 03/10/25 07:41 Medications Medications Current Medications Acetaminophen (Acetaminophen 325 Mg Tablet) 650 mg PO Q6H PRN PRN Reason: Headache/Pain, Scale 1-10 Last Admin: 03/16/25 11:27 Dose: 650 mg Al Hydroxide/Mg Hydroxide (Magnesium Hydrox/Alum Hydrox 30 Ml Oral.Susp) 30 ml PO Q6H PRN PRN Reason: Heartburn/Nausea Last Admin: 03/30/25 08:19 Dose: 30 ml Amlodipine Besylate (Amlodipine Besylate 5 Mg Tablet) 5 mg PO DAILY [facility]; Protocol Last Admin: 04/04/25 08:37 Dose: 5 mg Buspirone HCl (Buspirone Hcl 5 Mg Tablet) 15 mg PO BID [facility] Last Admin: 04/04/25 08:36 Dose: 15 mg Clotrimazole (Clotrimazole 1 % Cream 15 Gm Tube) 1 appl TOPICAL BID [facility]; Protocol Last Admin: 04/04/25 08:35 Dose: 1 appl Dicyclomine HCl (Dicyclomine Hcl 10 Mg Capsule) 20 mg PO BID [facility] Last Admin: 04/04/25 08:36 Dose: 20 mg Donepezil HCl (Donepezil Hcl 5 Mg Tablet) 5 mg PO BEDTIME [facility] Last Admin: 04/03/25 20:39 Dose: 5 mg Guaifenesin (Guaifenesin 100 Mg/5 Ml 5 Ml Liquid) 5 ml PO Q4H PRN PRN Reason: Cough Last Admin: 04/04/25 12:12 Dose: 5 ml Hydroxyzine HCl (Hydroxyzine Hcl 25 Mg Tablet) 25 mg PO Q6H PRN PRN Reason: mild anxiety Last Admin: 03/20/25 20:56 Dose: 25 mg Magnesium Hydroxide (Milk Of Magnesia 30 Ml Oral.Susp) 30 ml PO DAILY PRN PRN Reason: Constipation Melatonin (Melatonin 3 Mg Tablet) 6 mg PO BEDTIME [facility] Last Admin: 04/03/25 20:39 Dose: 6 mg Memantine (Memantine Hcl 5 Mg Tablet) 5 mg PO BID [facility] Last Admin: 04/04/25 08:35 Dose: 5 mg Mirtazapine (Mirtazapine 7.5 Mg Tablet) 7.5 mg PO BEDTIME [facility] Last Admin: 04/03/25 20:39 Dose: 7.5 mg Nicotine Polacrilex (Nicotine Polacrilex 2 Mg Gum) 2 mg BUCCAL Q2H PRN PRN Reason: Nicotine Cravings Omeprazole (Omeprazole 20 Mg Capsule.Dr) 20 mg PO DAILY [facility] Last Admin: 04/04/25 08:36 Dose: 20 mg Propranolol HCl (Propranolol Hcl La 60 Mg Cap.Sa.24h) 60 mg PO DAILY [facility]; Protocol Last Admin: 04/04/25 08:37 Dose: 60 mg Risperidone (Risperidone 0.5 Mg Tablet) 0.5 mg PO BID PRN PRN Reason: agitation Risperidone (Risperidone 1 Mg Tablet) 1 mg PO BID [facility] Last Admin: 04/04/25 08:38 Dose: 1 mg Simethicone (Simethicone 80 Mg Tab.Chew) 80 mg PO TIDWM [facility] Last Admin: 04/04/25 11:28 Dose: 80 mg Trazodone HCl (Trazodone Hcl 50 Mg Tablet) 50 mg PO BEDTIME MRX1 PRN PRN Reason: Insomnia Last Admin: 03/27/25 20:42 Dose: 50 mg Allergies Allergies Allergy/AdvReac Type Severity Reaction Status Date / Time Sulfa (Sulfonamide Allergy Severe Rash Verified 03/09/25 20:52 Antibiotics) Assessment & Plan Assessment & Plan (1) Alzheimer's dementia: Qualifiers: Alzheimer's disease onset: unspecified onset Dementia behavioral or psychological symptom: with anxiety Dementia severity: unspecified severity Q ualified Code(s): G30.9 - Alzheimer's disease, unspecified; F02.84 - Dementia in other diseases classified elsewhere, unspecified severity, with anxiety Status: Acute Code(s): G30.9 - Alzheimer's disease, unspecified; F02.80 - Dementia in other diseases classified elsewhere, unspecified severity, without behavioral disturbance, psychotic disturbance, mood disturbance, and anxiety Assessment and Plan: cont memantine unclear discharge plan Plan HPI: This is the first reported psychiatric admission for this 74 year old [id number] female from [place], [place]. Patient was transferred from [facility] ED. Information was obtained from patient who isn't a reliable keyboard instrument repairer due to her cognitive limitations and noted confabulation and the ED psychiatric consultation records from [facility]. Patient has a diagnosis of dementia since 2017. She reportedly left the home in [place] and drove to [place] and then back to [place]. In [place] she parked at a fire station and told 2 men there she was lost and told them her BF was stealing money from her. They called the police and patient was taken to the ED. PLAN: - Admit to inpatient psychiatry - CV - Collateral information from family and providers. - Milieu treatment and group therapy. - Medications: Continue OP regimen. - Social work evaluation. - Disposition planning. Hypertension Blood pressure has improved since arrival Patient will continue her amlodipine 5 mg daily Low-sodium diet Monitor blood pressure at least daily Tachycardia EKG requested, Sinus TACH 103, possible left atrial enlargement, Qtc 434 Suspect tachycardia secondary to patient's anxiety level Patient likely did not receive her propranolol per nursing at [facility], will order a 1 time dose of 40 mgs tonight Patient normally on propranolol 60 mg daily Patient is afebrile, no leukocytosis, UA negative at [facility] Added BNP to AM labs, if elevated, may require echo Stomach cramps Continue Bentyl, chronic in presentation Patient follows with a specialist in the outpatient setting. Hospitalist consult placed today 03/12/25. Continue bowel regimen Monitor for constipation GERD Continue omeprazole Obesity Patient has made efforts to lose weight by not eating bagels or sugar Nutritional consult as needed 03/11: continue current management and treatment plan. 03/12/25: Slept well and have no issue with appetite. Focused on wanting to go home. She does not want to be here folate 30 days. Reviewed with patient criteria to get home, but need to be stabilized. Denies safety concerns, anxious but visible and pleasant upon approach. She is forgetful. 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 pitch worker to do collateral with the boyfriend/family Increase risperidone up to 1 mg twice a day. Also start on Memantine 5 mg daily for dementia Alzheimer. Continue with risperidone 0.5 b.i.d. p.r.n. agitation. 03/13/25: Doing well with medication changes and new Menantine. Slept through the night, was medication compliant, less focused on going home today. Feeling lonely , some anxiety but not depression I want to live . Denies safety concerns. Morning View done today scored Morning View 9/30. Indicating severe cognitive impairment with deficits in all domains except language. She also scored a 4.2 on the ACLS indicate moderate functional deficits and the need for 38% cognitive assistance for problem solving, safety and ADLs/ADLs completion and consistency. She was the same outfit as yesterday. Continue complain about stomach pain, on the right side. Denies trouble voiding. No burning sensation. Simethicone 80 mg q.i.d. HS with meal as needed for gas or heartburn. Hospitalist was notified that she has a consult order in. 03/14/2025 Patient anxious and dysphoric has been on memantine BuSpar Risperdal. Hospitalist service saw the patient for abdominal pain did not feel need for further workup at this time. Seems to be tolerating medication patient does states she hopes to live with a cousin if she is not able to live with her partner. 03/15/25: Reports trouble falling asleep, but has been eating okay. Denies side effects from medications. Observed visible on the unit, attended groups, no angry moments, feeling anxious. Denies safety concerns I never want to . I love my life . Reports the boyfriend will come visit her bringing her more clothes this week. Perseverative on abdominal pain which she knows that is the chronic issues. Confirmed with her that she does not need antibiotic per hospitalist who saw her the day before. She thinks that she needs to be on antibiotic as she did the research in the past with the recommendation that she should be on antibiotic. Denies other safety concerns. Melatonin 6 mg at bedtime for sleep (reported that she takes 5 mg [id number] at home) 03/16/25 Pt with unrealistic expectations cont melatonin buspar can in namenda target mood behavior cognition consider rlower risp 03/17/25 CTP 03/18/25 ongoing confusion, mostly pleasant perseverative on abd pain- CTP 03/19/25 can inc namenda work with partner regarding return home vs placement 03/20/25 working on safe d/c planning partner feels unable to manage cont risp [place] risperadol coord with family 03/21/2025 Continue plan of care discharge planning PT consult continue Risperdal 03/22/2025 Patient with some periods of anxiety irritability not combative. Discharge planning between patient's son and her partner who is healthcare proxy 03/23/2025 Patient more easily brightening not aggressive. Has difficulty understanding current situation Continue current medication no adverse effects noted. Discharged and healthcare proxy and family 03/24: continue current management and treatment plan. 03/25: continue current management and treatment plan. 03/27/25 start aricept 5 hs hold pulse less than 55 consider mirtazapine inc anxiety irritability discharge planning 03/29/2025 Discharge planning continues monitor response to mirtazapine continue memantine 03/30/2025 Continue di scharge planning continue mirtazapine [place] Aricept 03/31 continue treatment plan 04/01 CTP 04/02/2025 Continue discharge planning no less restrictive setting at this time continue [place] Aricept Risperdal 820 Patient continues to tolerate treatment no adverse effects low-dose Risperdal mirtazapine [place]. Has not shown paranoia recently not overly aggressive looking at ways for safe discharge Informed Consent: further education needed Reason for continued inpatient stay Substantial Risk for: inability to function and rapid decompensation Time Spent With Patient Time: Total time managing care of this patient today ____ minutes.
--- NOTE | 2025-04-04 19:30 | PM.EVENT ---
Event Note Date of Service: 04/04/25 Event Note: Consult received from Psychiatry today with concerns regarding nonproductive cough and possible pneumonia. Patient is seen and examined. Patient found lying in bed resting. Patient able to interact and answer questions asked. Patient stated she has no shortness of breath at rest or with exertion, no cough and no production. Patient denies any fever, nausea, chills. Patient denies any postnasal drip or sinus pain. Patient does report history of allergic rhinitis. Patient is a previous smoker but she stopped over 20 years ago. Chest x-ray ordered and notes left lower lobe atelectasis with no evidence of pleural effusion, pulmonary edema or opacities. On exam lungs are clear bilaterally through all rasheed. Patient has no sinus tenderness, nares are patent and oral mucosa is pink and healthy. Left lower lobe atelectasis Ordered incentive spirometry to be used 10 times per hour Asked that patient be instructed on how to use Monitor closely Claritin daily ordered to help with possible symptoms of allergic rhinitis No labs are currently indicated as patient is afebrile and vital signs are stable No evidence of hypoxia We appreciate this consultation in the hospitalist group will sign off at this time. Please reach out with any questions or concerns or any new acute findings via re-consultation. Time Spent With Patient Time: Total time managing care of this patient today ____ minutes.
[2025-04-04 20:00] VITALS: BP 122/59; PULSE 54; RESP 16; TEMP 36.6; O2SAT 97
[2025-04-05 08:00] VITALS: BP 126/63; PULSE 81; RESP 18; TEMP 36.2; O2SAT 97
[2025-04-05] MEDS: guaiFENesin 100 MG/5 ML 5 ML LIQUID PO ×3 (08:08→21:27)
[2025-04-05] MEDS: Propranolol HCL LA 60 MG CAP.SA.24H PO (08:10)
[2025-04-05 08:42] VITALS: BMI 35.1
[2025-04-05] MEDS: Magnesium Hydrox/Alum Hydrox 30 ML ORAL.SUSP PO (11:16)
[2025-04-05] MEDS: Clotrimazole 1 % Cream 15 GM TUBE 1 APPL TOPICAL ×2 (11:25→20:24)
[2025-04-05 20:00] VITALS: BP 104/59; PULSE 61; TEMP 36.9; O2SAT 97
--- NOTE | 2025-04-05 22:42 | HO.PSYCHPN ---
Subjective Subjective Date of Service: 03/29/25 Reason For Visit: Unspecified psychosis Dementia w/ behavioral distu Subjective Notes: Conditional Voluntary Interim History: Patient some sadness aware of her cognitive impairment. Eating drinking sleeping okay Medication Compliance: No Mental Status Exam Mental Status Exam Narrative: dressed in night gown and robe- Patient Appearance: Well Grooomed and Appropriate Patient Orientation: Person and Place (knows not at home) Level of Consciousness: Awake and Alert Patient Behavior: Cooperative, Distractible and Good Eye Contact Behavior Comments: Mood brighter superficially cheerful at times Mood Description: Calm ( good ) and Anxious Affect Description: Calm, Depressed ( getting less) and Apprehensive Patient Cognition Impaired: Yes Ability to Follow Directions: Fair Speech Pattern: Clear Memory Description: Episodic Impaired and Immediate Intact Diagnostics Vital Signs (24Hr): Vital Signs - 24 hr 04/05/25 08:00 04/05/25 20:00 Temperature 97.1 F 98.4 F Pulse Rate 81 61 Respiratory Rate 18 Blood Pressure 126/63 104/59 L Pulse Oximetry 97 97 Oxygen Delivery Method Room Air Room Air BMI result Body Mass Index 35.1 Labs 03/10/25 07:41 Medications Medications Current Medications Acetaminophen (Acetaminophen 325 Mg Tablet) 650 mg PO Q6H PRN PRN Reason: Headache/Pain, Scale 1-10 Last Admin: 04/05/25 08:09 Dose: 650 mg Al Hydroxide/Mg Hydroxide (Magnesium Hydrox/Alum Hydrox 30 Ml Oral.Susp) 30 ml PO Q6H PRN PRN Reason: Heartburn/Nausea Last Admin: 04/05/25 11:16 Dose: 30 ml Amlodipine Besylate (Amlodipine Besylate 5 Mg Tablet) 5 mg PO DAILY [facility]; Protocol Last Admin: 04/05/25 08:10 Dose: 5 mg Buspirone HCl (Buspirone Hcl 5 Mg Tablet) 15 mg PO BID [facility] Last Admin: 04/05/25 20:24 Dose: 15 mg Clotrimazole (Clotrimazole 1 % Cream 15 Gm Tube) 1 appl TOPICAL BID [facility]; Protocol Last Admin: 04/05/25 20:24 Dose: 1 appl Dicyclomine HCl (Dicyclomine Hcl 10 Mg Capsule) 20 mg PO BID [facility] Last Admin: 04/05/25 20:24 Dose: 20 mg Donepezil HCl (Donepezil Hcl 5 Mg Tablet) 5 mg PO BEDTIME [facility] Last Admin: 04/05/25 20:25 Dose: 5 mg Guaifenesin (Guaifenesin 100 Mg/5 Ml 5 Ml Liquid) 5 ml PO Q4H PRN PRN Reason: Cough Last Admin: 04/05/25 21:27 Dose: 5 ml Hydroxyzine HCl (Hydroxyzine Hcl 25 Mg Tablet) 25 mg PO Q6H PRN PRN Reason: mild anxiety Last Admin: 03/20/25 20:56 Dose: 25 mg Loratadine (Loratadine 10 Mg Tablet) 10 mg PO DAILY [facility] Last Admin: 04/05/25 08:10 Dose: 10 mg Magnesium Hydroxide (Milk Of Magnesia 30 Ml Oral.Susp) 30 ml PO DAILY PRN PRN Reason: Constipation Melatonin (Melatonin 3 Mg Tablet) 6 mg PO BEDTIME [facility] Last Admin: 04/05/25 20:24 Dose: 6 mg Memantine (Memantine Hcl 5 Mg Tablet) 5 mg PO BID [facility] Last Admin: 04/05/25 20:25 Dose: 5 mg Mirtazapine (Mirtazapine 7.5 Mg Tablet) 7.5 mg PO BEDTIME [facility] Last Admin: 04/05/25 20:25 Dose: 7.5 mg Nicotine Polacrilex (Nicotine Polacrilex 2 Mg Gum) 2 mg BUCCAL Q2H PRN PRN Reason: Nicotine Cravings Omeprazole (Omeprazole 20 Mg Capsule.Dr) 20 mg PO DAILY [facility] Last Admin: 04/05/25 08:10 Dose: 20 mg Propranolol HCl (Propranolol Hcl La 60 Mg Cap.Sa.24h) 60 mg PO DAILY [facility]; Protocol Last Admin: 04/05/25 08:10 Dose: 60 mg Risperidone (Risperidone 0.5 Mg Tablet) 0.5 mg PO BID PRN PRN Reason: agitation Risperidone (Risperidone 1 Mg Tablet) 1 mg PO BID [facility] Last Admin: 04/05/25 20:25 Dose: 1 mg Simethicone (Simethicone 80 Mg Tab.Chew) 80 mg PO TIDWM [facility] Last Admin: 04/05/25 16:57 Dose: 80 mg Trazodone HCl (Trazodone Hcl 50 Mg Tablet) 50 mg PO BEDTIME MRX1 PRN PRN Reason: Insomnia Last Admin: 03/27/25 20:42 Dose: 50 mg Allergies Allergies Allergy/AdvReac Type Severity Reaction Status Date / Time Sulfa (Sulfonamide Allergy Severe Rash Verified 03/09/25 20:52 Antibiotics) Assessment & Plan Assessment & Plan (1) Alzheimer's dementia: Qualifiers: Alzheimer's disease onset: unspecified onset Dementia behavioral or psychological symptom: with anxiety Dementia severity: unspecified severity Qualified Code(s): G30.9 - Alzheimer's disease, unspecified; F02.84 - Dementia in other diseases classified elsewhere, unspecified severity, with anxiety Status: Acute Code(s): G30.9 - Alzheimer's disease, unspecified; F02.80 - Dementia in other diseases classified elsewhere, unspecified severity, without behavioral disturbance, psychotic disturbance, mood disturbance, and anxiety Assessment and Plan: cont memantine unclear discharge plan Plan HPI: This is the first reported psychiatric admission for this 74 year old [id number] female from [place], [place]. Patient was transferred from [facility] ED. Information was obtained from patient who isn't a reliable latent print examiner due to her cognitive limitations and noted confabulation and the ED psychiatric consultation records from [facility]. Patient has a diagnosis of dementia since 2017. She reportedly left the home in [place] and drove to [place] and then back to [place]. In [place] she parked at a fire station and told 2 men there she was lost and told them her BF was stealing money from her. They called the police and patient was taken to the ED. PLAN: - Admit to inpatient psychiatry - CV - Collateral information from family and providers. - Milieu treatment and group therapy. - Medications: Continue OP regimen. - Social work evaluation. - Disposition planning. Hypertension Blood pressure has improved since arrival Patient will continue her amlodipine 5 mg daily Low-sodium diet Monitor blood pressure at least daily Tachycardia EKG requested, Sinus TACH 103, possible left atrial enlargement, Qtc 434 Suspect tachycardia secondary to patient's anxiety level Patient likely did not receive her propranolol per nursing at [facility], will order a 1 time dose of 40 mgs tonight Patient normally on propranolol 60 mg daily Patient is afebrile, no leukocytosis, UA negative at [facility] Added BNP to AM labs, if elevated, may require echo Stomach cramps Continue Bentyl, chronic in presentation Patient follows with a specialist in the outpatient setting. Hospitalist consult placed today 03/12/25. Continue bowel regimen Monitor for constipation GERD Continue omeprazole Obesity Patient has made efforts to lose weight by not eating bagels or sugar Nutritional consult as needed 03/11: continue current management and treatment plan. 03/12/25: Slept well and have no issue with appetite. Focused on wanting to go home. She does not want to be here folate 30 days. Reviewed with patient criteria to get home, but need to be stabilized. Denies safety concerns, anxious but visible and pleasant upon approach. She is forgetful. 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 social group worker to do collateral with the boyfriend/family Increase risperidone up to 1 mg twice a day. Also start on Memantine 5 mg daily for dementia Alzheimer. Continue with risperidone 0.5 b.i.d. p.r.n. agitation. 03/13/25: Doing well with medication changes and new Menantine. Slept through the night, was medication compliant, less focused on going home today. Feeling lonely , some anxiety but not depression I want to live . Denies safety concerns. Beatrice done today scored Beatrice 9/30. Indicating severe cognitive impairment with deficits in all domains except language. She also scored a 4.2 on the ACLS indicate moderate functional deficits and the need for 38% cognitive assistance for problem solving, safety and ADLs/ADLs completion and consistency. She was the same outfit as yesterday. Continue complain about stomach pain, on the right side. Denies trouble voiding. No burning sensation. Simethicone 80 mg q.i.d. HS with meal as needed for gas or heartburn. Hospitalist was notified that she has a consult order in. 03/14/2025 Patient anxious and dysphoric has been on memantine BuSpar Risperdal. Hospitalist service saw the patient for abdominal pain did not feel need for further workup at this time. Seems to be tolerating medication patient does states she hopes to live with a cousin if she is not able to live with her partner. 03/15/25: Reports trouble falling asleep, but has been eating okay. Denies side effects from medications. Observed visible on the unit, attended groups, no angry moments, feeling anxious. Denies safety concerns I never want to . I love my life . Reports the boyfriend will come visit her bringing her more clothes this week. Perseverative on abdominal pain which she knows that is the chronic issues. Confirmed with her that she does not need antibiotic per hospitalist who saw her the day before. She thinks that she needs to be on antibiotic as she did the research in the past with the recommendation that she should be on antibiotic. Denies other safety concerns. Melatonin 6 mg at bedtime for sleep (reported that she takes 5 mg [id number] at home) 03/16/25 Pt with unrealistic expectations cont melatonin buspar can in namenda target mood behavior cognition consider rlower risp 03/17/25 CTP 03/18/25 ongoing confusion, mostly pleasant perseverative on abd pain- CTP 03/19/25 can inc namenda work with partner regarding return home vs placement 03/20/25 working on safe d/c planning partner feels unable to manage cont risp [facility] risperadol coord with family 03/21/2025 Continue plan of care discharge planning PT consult continue Risperdal 03/22/2025 Patient with some periods of anxiety irritability not combative. Discharge planning between patient's son and her partner who is healthcare proxy 03/23/2025 Patient more easily brightening not aggressive. Has difficulty understanding current situation Continue current medication no adverse effects noted. Discharged and healthcare proxy and family 03/24: continue current management and treatment plan. 03/25: continue current management and treatment plan. 03/27/25 start aricept 5 hs hold pulse less than 55 consider mirtazapine inc anxiety irritability discharge planning 03/29/2025 Discharge planning continues monitor response to mirtazapine continue memantine 03/30/2025 Continue di scharge planning continue mirtazapine [facility] Aricept 03/31 continue treatment plan 04/01 CTP 04/02/2025 Continue discharge planning no less restrictive setting at this time continue [place] Aricept Risperdal Patient continues to tolerate treatment no adverse effects low-dose Risperdal mirtazapine [place]. Has not shown paranoia recently not overly aggressive looking at ways for safe discharge Continue discharge planning continue mirtazapine [place] Patient educated on: diagnosis, medication risk/benefits and therapeutic strategies Informed Consent: does not understand Reason for continued inpatient stay Substantial Risk for: inability to function and rapid decompensation Time Spent With Patient Time: Total time managing care of this patient today ____ minutes.
[2025-04-06 08:04] VITALS: BP 118/56; PULSE 73; RESP 20; TEMP 36.1; O2SAT 97
[2025-04-06] MEDS: Propranolol HCL LA 60 MG CAP.SA.24H PO (08:07)
[2025-04-06] MEDS: Clotrimazole 1 % Cream 15 GM TUBE 1 APPL TOPICAL ×2 (09:00→19:45)
--- NOTE | 2025-04-06 12:32 | P.PNPSI_ITS ---
Subjective Subjective Date of Service: 04/06/25 Reason For Visit: Unspecified psychosis Dementia w/ behavioral distu Subjective Notes: Conditional Voluntary Healthcare Proxy: Yes Interim History: Patient said at times soldier Alzheimer's diagnosis cooperative with treatment was able to participate in meeting with her family. Does feel supported. Does engage with others Mental Status Exam Mental Status Exam Narrative: dressed in night gown and robe- Patient Appearance: Well Grooomed and Appropriate Patient Orientation: Person and Place (knows not at home) Level of Consciousness: Awake and Alert Patient Behavior: Cooperative, Distractible and Good Eye Contact Behavior Comments: Mood brighter superficially cheerful at times Mood Description: Calm ( good ) and Anxious Affect Description: Calm, Depressed ( getting less) and Apprehensive Patient Cognition Impaired: Yes Ability to Follow Directions: Fair Speech Pattern: Clear Memory Description: Episodic Impaired and Immediate Intact Judgement and Insight: Patient increasingly aware she needs help and accepting Diagnostics Vital Signs (24Hr): Vital Signs - 24 hr 04/05/25 20:00 04/06/25 08:04 Temperature 98.4 F 96.9 F Pulse Rate 61 73 Respiratory Rate 20 Blood Pressure 104/59 L 118/56 L Pulse Oximetry 97 97 Oxygen Delivery Method Room Air Room Air BMI result Body Mass Index 35.1 Labs 04/10/25 11:00 03/10/25 07:41 Medications Medications Current Medications Acetaminophen (Acetaminophen 325 Mg Tablet) 650 mg PO Q6H PRN PRN Reason: Headache/Pain, Scale 1-10 Last Admin: 04/05/25 08:09 Dose: 650 mg Al Hydroxide/Mg Hydroxide (Magnesium Hydrox/Alum Hydrox 30 Ml Oral.Susp) 30 ml PO Q6H PRN PRN Reason: Heartburn/Nausea Last Admin: 04/05/25 11:16 Dose: 30 ml Amlodipine Besylate (Amlodipine Besylate 5 Mg Tablet) 5 mg PO DAILY [facility]; Protocol Last Admin: 04/06/25 08:09 Dose: 5 mg Buspirone HCl (Buspirone Hcl 5 Mg Tablet) 15 mg PO BID [facility] Last Admin: 04/06/25 08:08 Dose: 15 mg Clotrimazole (Clotrimazole 1 % Cream 15 Gm Tube) 1 appl TOPICAL BID [facility]; Protocol Last Admin: 04/06/25 09:00 Dose: 1 appl Dicyclomine HCl (Dicyclomine Hcl 10 Mg Capsule) 20 mg PO BID [facility] Last Admin: 04/06/25 08:06 Dose: 20 mg Donepezil HCl (Donepezil Hcl 5 Mg Tablet) 5 mg PO BEDTIME [facility] Last Admin: 04/05/25 20:25 Dose: 5 mg Guaifenesin (Guaifenesin 100 Mg/5 Ml 5 Ml Liquid) 5 ml PO Q4H PRN PRN Reason: Cough Last Admin: 04/05/25 21:27 Dose: 5 ml Hydroxyzine HCl (Hydroxyzine Hcl 25 Mg Tablet) 25 mg PO Q6H PRN PRN Reason: mild anxiety Last Admin: 03/20/25 20:56 Dose: 25 mg Loratadine (Loratadine 10 Mg Tablet) 10 mg PO DAILY [facility] Last Admin: 04/06/25 08:09 Dose: 10 mg Magnesium Hydroxide (Milk Of Magnesia 30 Ml Oral.Susp) 30 ml PO DAILY PRN PRN Reason: Constipation Melatonin (Melatonin 3 Mg Tablet) 6 mg PO BEDTIME [facility] Last Admin: 04/05/25 20:24 Dose: 6 mg Memantine (Memantine Hcl 5 Mg Tablet) 5 mg PO BID [facility] Last Admin: 04/06/25 08:06 Dose: 5 mg Mirtazapine (Mirtazapine 7.5 Mg Tablet) 7.5 mg PO BEDTIME [facility] Last Admin: 04/05/25 20:25 Dose: 7.5 mg Nicotine Polacrilex (Nicotine Polacrilex 2 Mg Gum) 2 mg BUCCAL Q2H PRN PRN Reason: Nicotine Cravings Omeprazole (Omeprazole 20 Mg Capsule.Dr) 20 mg PO DAILY [facility] Last Admin: 04/06/25 08:08 Dose: 20 mg Propranolol HCl (Propranolol Hcl La 60 Mg Cap.Sa.24h) 60 mg PO DAILY [facility]; Protocol Last Admin: 04/06/25 08:07 Dose: 60 mg Risperidone (Risperidone 0.5 Mg Tablet) 0.5 mg PO BID PRN PRN Reason: agitation Risperidone (Risperidone 1 Mg Tablet) 1 mg PO BID [facility] Last Admin: 04/06/25 08:09 Dose: 1 mg Simethicone (Simethicone 80 Mg Tab.Chew) 80 mg PO TIDWM [facility] Last Admin: 04/06/25 12:16 Dose: 80 mg Trazodone HCl (Trazodone Hcl 50 Mg Tablet) 50 mg PO BEDTIME MRX1 PRN PRN Reason: Insomnia Last Admin: 03/27/25 20:42 Dose: 50 mg Allergies Allergies Allergy/AdvReac Type Severity Reaction Status Date / Time Sulfa (Sulfonamide Allergy Severe Rash Verified 03/09/25 20:52 Antibiotics) Assessment & Plan Assessment & Plan (1) Alzheimer's dementia: Qualifiers: Alzheimer's disease onset: unspecified onset Dementia behavioral or psychological symptom: with anxiety Dementia severity: unspecified severity Q ualified Code(s): G30.9 - Alzheimer's disease, unspecified; F02.84 - Dementia in other diseases classified elsewhere, unspecified severity, with anxiety Status: Acute Code(s): G30.9 - Alzheimer's disease, unspecified; F02.80 - Dementia in other diseases classified elsewhere, unspecified severity, without behavioral disturbance, psychotic disturbance, mood disturbance, and anxiety Assessment and Plan: cont memantine Aricept 5 mg patient on beta-arnulfo trying to keep dose low secondary to interaction Plan HPI: This is the first reported psychiatric admission for this 74 year old [id number] female from [place], [place]. Patient was transferred from [facility] ED. Information was obtained from patient who isn't a reliable seismograph recorder due to her cognitive limitations and noted confabulation and the ED psychiatric consultation records from [facility]. Patient has a diagnosis of dementia since 2017. She reportedly left the home in [place] and drove to [place] and then back to [place]. In [place] she parked at a fire station and told 2 men there she was lost and told them her BF was stealing money from her. They called the police and patient was taken to the ED. PLAN: - Admit to inpatient psychiatry - CV - Collateral information from family and providers. - Milieu treatment and group therapy. - Medications: Continue OP regimen. - Social work evaluation. - Disposition planning. Hypertension Blood pressure has improved since arrival Patient will continue her amlodipine 5 mg daily Low-sodium diet Monitor blood pressure at least daily Tachycardia EKG requested, Sinus TACH 103, possible left atrial enlargement, Qtc 434 Suspect tachycardia secondary to patient's anxiety level Patient likely did not receive her propranolol per nursing at [facility], will order a 1 time dose of 40 mgs tonight Patient normally on propranolol 60 mg daily Patient is afebrile, no leukocytosis, UA negative at [place] Added BNP to AM labs, if elevated, may require echo Stomach cramps Continue Bentyl, chronic in presentation Patient follows with a specialist in the outpatient setting. Hospitalist consult placed today 03/12/25. Continue bowel regimen Monitor for constipation GERD Continue omeprazole Obesity Patient has made efforts to lose weight by not eating bagels or sugar Nutritional consult as needed 03/11: continue current management and treatment plan. 03/12/25: Slept well and have no issue with appetite. Focused on wanting to go home. She does not want to be here folate 30 days. Reviewed with patient criteria to get home, but need to be stabilized. Denies safety concerns, anxious but visible and pleasant upon approach. She is forgetful. 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 Also start on Memantine 5 mg daily for dementia Alzheimer. Continue with risperidone 0.5 b.i.d. p.r.n. agitation. 03/13/25: Doing well with medication changes and new Menantine. Slept through the night, was medication compliant, less focused on going home today. Feeling lonely , some anxiety but not depression I want to live . Denies safety concerns. [place] done today scored [place] 9/30. Indicating severe cognitive impairment with deficits in all domains except language. She also scored a 4.2 on the ACLS indicate moderate functional deficits and the need for 38% cognitive assistance for problem solving, safety and ADLs/ADLs completion and consistency. She was the same outfit as yesterday. Continue complain about stomach pain, on the right side. Denies trouble voiding. No burning sensation. Simethicone 80 mg q.i.d. HS with meal as needed for gas or heartburn. Hospitalist was notified that she has a consult order in. 03/14/2025 Patient anxious and dysphoric has been on memantine BuSpar Risperdal. Hospitalist service saw the patient for abdominal pain did not feel need for further workup at this time. Seems to be tolerating medication patient does states she hopes to live with a cousin if she is not able to live with her partner. 03/15/25: Reports trouble falling asleep, but has been eating okay. Denies side effects from medications. Observed visible on the unit, attended groups, no angry moments, feeling anxious. Denies safety concerns I never want to . I love my life . Reports the boyfriend will come visit her bringing her more clothes this week. Perseverative on abdominal pain which she knows that is the chronic issues. Confirmed with her that she does not need antibiotic per hospitalist who saw her the day before. She thinks that she needs to be on antibiotic as she did the research in the past with the recommendation that she should be on antibiotic. Denies other safety concerns. Melatonin 6 mg at bedtime for sleep (reported that she takes 5 mg [id number] at home) 03/16/25 Pt with unrealistic expectations cont melatonin buspar can in [place] target mood behavior cognition consider rlower risp 03/17/25 CTP 03/18/25 ongoing confusion, mostly pleasant perseverative on abd pain- CTP 03/19/25 can inc nam[place] work with partner regarding return home vs placement 03/20/25 working on safe d/c planning partner feels unable to manage cont risp [place] risperadol coord with family 03/21/2025 Continue plan of care discharge planning PT consult continue Risperdal 03/22/2025 Patient with some periods of anxiety irritability not combative. Discharge planning between patient's son and her partner who is healthcare proxy 03/23/2025 Patient more easily brightening not aggressive. Has difficulty understanding current situation Continue current medication no adverse effects noted. Discharged and healthcare proxy and family 03/24: continue current management and treatment plan. 03/25: continue current management and treatment plan. 03/27/25 start aricept 5 hs hold pulse less than 55 consider mirtazapine inc anxiety irritability discharge planning 03/29/2025 Discharge planning continues monitor response to mirtazapine continue memantine 03/30/2025 Continue di scharge planning continue mirtazapine [place] Aricept 03/31 continue treatment plan 04/01 CTP 04/02/2025 Continue discharge planning no less restrictive setting at this time continue [place] Aricept Risperdal 82 Patient continues to tolerate treatment no adverse effects low-dose Risperdal mirtazapine [place]. Has not shown paranoia recently not overly aggressive looking at ways for safe discharge Reason for continued inpatient stay Substantial Risk for: inability to function and rapid decompensation Time Spent With Patient Time: Total time managing care of this patient today ____ minutes.
[2025-04-06] MEDS: guaiFENesin 100 MG/5 ML 5 ML LIQUID PO (18:19)
[2025-04-06 19:42] VITALS: BP 184/88; PULSE 85; RESP 17; TEMP 36.4; O2SAT 96
--- NOTE | 2025-04-07 07:48 | P.PNPSI_ITS ---
Subjective Subjective Date of Service: 04/07/25 Reason For Visit: Unspecified psychosis Dementia w/ behavioral distu Subjective Notes: Conditional Voluntary Interim History: some isolation. No management issues. Some complaints of intermittent GI discomfort but improving. Patient pleasant in the milieu. Clear cognitive impairment for example states she has been here for either 4 or 5 months, when reality is 1 month. Denies depression. Feels overall well cared for. No psychosis. Sleep okay. Medication Compliance: Yes Side effects from medications: No Attending Groups: Intermittent Review of Systems Acute medical concerns: No Review of Systems Review of Systems Intermittent GI discomfort improving on bowel regimen Mental Status Exam Mental Status Exam Narrative: dressed in night gown and robe- Patient Appearance: Well Grooomed and Appropriate Patient Orientation: Person and Place (knows not at home) Level of Consciousness: Awake and Alert Patient Behavior: Cooperative, Distractible and Good Eye Contact Behavior Comments: Mood brighter superficially cheerful at times Mood Description: Calm ( good ) Affect Description: Calm, Depressed ( getting less) and Apprehensive Patient Cognition Impaired: Yes Ability to Follow Directions: Fair Speech Pattern: Clear Memory Description: Episodic Impaired and Immediate Intact Judgement: Poor Diagnostics Vital Signs (24Hr): Vital Signs - 24 hr 04/06/25 08:04 04/06/25 19:42 Temperature 96.9 F 97.6 F Pulse Rate 73 85 Respiratory Rate 20 17 Blood Pressure 118/56 L 184/88 H Pulse Oximetry 97 96 Oxygen Delivery Method Room Air Room Air BMI result Body Mass Index 35.1 Labs 03/10/25 07:41 Medications Medications Current Medications Acetaminophen (Acetaminophen 325 Mg Tablet) 650 mg PO Q6H PRN PRN Reason: Headache/Pain, Scale 1-10 Last Admin: 04/05/25 08:09 Dose: 650 mg Al Hydroxide/Mg Hydroxide (Magnesium Hydrox/Alum Hydrox 30 Ml Oral.Susp) 30 ml PO Q6H PRN PRN Reason: Heartburn/Nausea Last Admin: 04/05/25 11:16 Dose: 30 ml Amlodipine Besylate (Amlodipine Besylate 5 Mg Tablet) 5 mg PO DAILY [facility]; Protocol Last Admin: 04/06/25 08:09 Dose: 5 mg Ascorbic Acid (Ascorbic Acid 500 Mg Tablet) 500 mg PO DAILY [facility] Last Admin: 04/06/25 21:29 Dose: 500 mg Buspirone HCl (Buspirone Hcl 5 Mg Tablet) 15 mg PO BID [facility] Last Admin: 04/06/25 19:44 Dose: 15 mg Clotrimazole (Clotrimazole 1 % Cream 15 Gm Tube) 1 appl TOPICAL BID [facility]; Protocol Last Admin: 04/06/25 19:45 Dose: 1 appl Dicyclomine HCl (Dicyclomine Hcl 10 Mg Capsule) 20 mg PO BID [facility] Last Admin: 04/06/25 19:44 Dose: 20 mg Donepezil HCl (Donepezil Hcl 5 Mg Tablet) 5 mg PO BEDTIME [facility] Last Admin: 04/06/25 19:44 Dose: 5 mg Guaifenesin (Guaifenesin 100 Mg/5 Ml 5 Ml Liquid) 5 ml PO Q4H PRN PRN Reason: Cough Last Admin: 04/06/25 18:19 Dose: 5 ml Hydroxyzine HCl (Hydroxyzine Hcl 25 Mg Tablet) 25 mg PO Q6H PRN PRN Reason: mild anxiety Last Admin: 03/20/25 20:56 Dose: 25 mg Loratadine (Loratadine 10 Mg Tablet) 10 mg PO DAILY [facility] Last Admin: 04/06/25 08:09 Dose: 10 mg Magnesium Hydroxide (Milk Of Magnesia 30 Ml Oral.Susp) 30 ml PO DAILY PRN PRN Reason: Constipation Melatonin (Melatonin 3 Mg Tablet) 6 mg PO BEDTIME [facility] Last Admin: 04/06/25 19:44 Dose: 6 mg Memantine (Memantine Hcl 5 Mg Tablet) 5 mg PO BID [facility] Last Admin: 04/06/25 19:44 Dose: 5 mg Mirtazapine (Mirtazapine 7.5 Mg Tablet) 7.5 mg PO BEDTIME [facility] Last Admin: 04/06/25 19:44 Dose: 7.5 mg Nicotine Polacrilex (Nicotine Polacrilex 2 Mg Gum) 2 mg BUCCAL Q2H PRN PRN Reason: Nicotine Cravings Omeprazole (Omeprazole 20 Mg Capsule.Dr) 20 mg PO DAILY [facility] Last Admin: 04/06/25 08:08 Dose: 20 mg Propranolol HCl (Propranolol Hcl La 60 Mg Cap.Sa.24h) 60 mg PO DAILY [facility]; Protocol Last Admin: 04/06/25 08:07 Dose: 60 mg Risperidone (Risperidone 0.5 Mg Tablet) 0.5 mg PO BID PRN PRN Reason: agitation Risperidone (Risperidone 1 Mg Tablet) 1 mg PO BID [facility] Last Admin: 04/06/25 19:44 Dose: 1 mg Simethicone (Simethicone 80 Mg Tab.Chew) 80 mg PO TIDWM [facility] Last Admin: 04/06/25 17:19 Dose: 80 mg Trazodone HCl (Trazodone Hcl 50 Mg Tablet) 50 mg PO BEDTIME MRX1 PRN PRN Reason: Insomnia Last Admin: 03/27/25 20:42 Dose: 50 mg Zinc Sulfate (Zinc Sulfate 220 Mg Capsule) 220 mg PO DAILY [facility] Last Admin: 04/06/25 21:28 Dose: 220 mg Allergies Allergies Allergy/AdvReac Type Severity Reaction Status Date / Time Sulfa (Sulfonamide Allergy Severe Rash Verified 03/09/25 20:52 Antibiotics) Assessment & Plan Assessment & Plan (1) Alzheimer's dementia: Qualifiers: Alzheimer's disease onset: unspecified onset Dementia behavioral or psychological symptom: with anxiety Dementia severity: unspecified severity Q ualified Code(s): G30.9 - Alzheimer's disease, unspecified; F02.84 - Dementia in other diseases classified elsewhere, unspecified severity, with anxiety Status: Acute Code(s): G30.9 - Alzheimer's disease, unspecified; F02.80 - Dementia in other diseases classified elsewhere, unspecified severity, without behavioral disturbance, psychotic disturbance, mood disturbance, and anxiety Assessment and Plan: cont memantine unclear discharge plan Plan HPI: This is the first reported psychiatric admission for this 74 year old [id number] female from [place], [place]. Patient was transferred from [facility] ED. 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 Patient has a diagnosis of dementia since 2017. She reportedly left the home in [place] and drove to [place] and then back to [place]. In [place] she parked at a fire station and told 2 men there she was lost and told them her BF was stealing money from her. They called the police and patient was taken to the ED. PLAN: - Admit to inpatient psychiatry - CV - Collateral information from family and providers. - Milieu treatment and group therapy. - Medications: Continue OP regimen. - Social work evaluation. - Disposition planning. Hypertension Blood pressure has improved since arrival Patient will continue her amlodipine 5 mg daily Low-sodium diet Monitor blood pressure at least daily Tachycardia EKG requested, Sinus TACH 103, possible left atrial enlargement, Qtc 434 Suspect tachycardia secondary to patient's anxiety level Patient likely did not receive her propranolol per nursing at [facility], will order a 1 time dose of 40 mgs tonight Patient normally on propranolol 60 mg daily Patient is afebrile, no leukocytosis, UA negative at [place] Added BNP to AM labs, if elevated, may require echo Stomach cramps Continue Bentyl, chronic in presentation Patient follows with a specialist in the outpatient setting. Hospitalist consult placed today 03/12/25. Continue bowel regimen Monitor for constipation GERD Continue omeprazole Obesity Patient has made efforts to lose weight by not eating bagels or sugar Nutritional consult as needed 03/11: continue current management and treatment plan. 03/12/25: Slept well and have no issue with appetite. Focused on wanting to go home. She does not want to be here folate 30 days. Reviewed with patient criteria to get home, but need to be stabilized. Denies safety concerns, anxious but visible and pleasant upon approach. She is forgetful. 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 Also start on Memantine 5 mg daily for dementia Alzheimer. Continue with risperidone 0.5 b.i.d. p.r.n. agitation. 03/13/25: Doing well with medication changes and new Menantine. Slept through the night, was medication compliant, less focused on going home today. Feeling lonely , some anxiety but not depression I want to live . Denies safety concerns. [place] done today scored [place] 9/30. Indicating severe cognitive impairment with deficits in all domains except language. She also scored a 4.2 on the ACLS indicate moderate functional deficits and the need for 38% cognitive assistance for problem solving, safety and ADLs/ADLs completion and consistency. She was the same outfit as yesterday. Continue complain about stomach pain, on the right side. Denies trouble voiding. No burning sensation. Simethicone 80 mg q.i.d. HS with meal as needed for gas or heartburn. Hospitalist was notified that she has a consult order in. 03/14/2025 Patient anxious and dysphoric has been on memantine BuSpar Risperdal. Hospitalist service saw the patient for abdominal pain did not feel need for further workup at this time. Seems to be tolerating medication patient does states she hopes to live with a cousin if she is not able to live with her partner. 03/15/25: Reports trouble falling asleep, but has been eating okay. Denies side effects from medications. Observed visible on the unit, attended groups, no angry moments, feeling anxious. Denies safety concerns I never want to . I love my life . Reports the boyfriend will come visit her bringing her more clothes this week. Perseverative on abdominal pain which she knows that is the chronic issues. Confirmed with her that she does not need antibiotic per hospitalist who saw her the day before. She thinks that she needs to be on antibiotic as she did the research in the past with the recommendation that she should be on antibiotic. Denies other safety concerns. Melatonin 6 mg at bedtime for sleep (reported that she takes 5 mg [id number] at home) 03/16/25 Pt with unrealistic expectations cont melatonin buspar can in [place] target mood behavior cognition consider rlower risp 03/17/25 CTP 03/18/25 ongoing confusion, mostly pleasant perseverative on abd pain- CTP 03/19/25 can inc [place] work with partner regarding return home vs placement 03/20/25 working on safe d/c planning partner feels unable to manage cont risp [place] risperadol coord with family 03/21/2025 Continue plan of care discharge planning PT consult continue Risperdal 03/22/2025 Patient with some periods of anxiety irritability not combative. Discharge planning between patient's son and her partner who is healthcare proxy 03/23/2025 Patient more easily brightening not aggressive. Has difficulty understanding current situation Continue current medication no adverse effects noted. Discharged and healthcare proxy and family 03/24: continue current management and treatment plan. 03/25: continue current management and treatment plan. 03/27/25 start aricept 5 hs hold pulse less than 55 consider mirtazapine inc anxiety irritability discharge planning 03/29/2025 Discharge planning continues monitor response to mirtazapine continue memantine 03/30/2025 Continue di scharge planning continue mirtazapine [place] Aricept 03/31 continue treatment plan 04/01 CTP 04/02/2025 Continue discharge planning no less restrictive setting at this time continue [place] Aricept Risperdal Patient continues to tolerate treatment no adverse effects low-dose Risperdal mirtazapine [place]. Has not shown paranoia recently not overly aggressive looking at ways for safe discharge 12/06: No changes Reason for continued inpatient stay Substantial Risk for: inability to function and rapid decompensation Time Spent With Patient Time: Total time managing care of this patient today ____ minutes.
[2025-04-07 08:00] VITALS: BP 117/57; PULSE 65; RESP 17; TEMP 36.6; O2SAT 96
[2025-04-07] MEDS: Clotrimazole 1 % Cream 15 GM TUBE 1 APPL TOPICAL ×2 (08:59→20:19)
[2025-04-07 09:03] VITALS: BP 117/57; PULSE 65
[2025-04-07] MEDS: Propranolol HCL LA 60 MG CAP.SA.24H PO (09:03)
[2025-04-07] MEDS: guaiFENesin 100 MG/5 ML 5 ML LIQUID PO ×3 (10:36→17:29)
[2025-04-07] MEDS: Magnesium Hydrox/Alum Hydrox 30 ML ORAL.SUSP PO (10:36)
[2025-04-07 20:16] VITALS: BP 111/71; PULSE 82; RESP 16; TEMP 36.9; O2SAT 94
[2025-04-08] MEDS: Propranolol HCL LA 60 MG CAP.SA.24H PO (08:10)
[2025-04-08] MEDS: Clotrimazole 1 % Cream 15 GM TUBE 1 APPL TOPICAL (08:11)
--- NOTE | 2025-04-08 10:23 | HO.PSYCHPN ---
Subjective Subjective Date of Service: 04/08/25 Reason For Visit: Unspecified psychosis Dementia w/ behavioral distu Interim History: Met with Maria C . Intermittent isolation but does follow room mate to groups etc.. No management issues. Patient pleasant in the milieu. Clear cognitive impairment. Denies depression. Feels overall well cared for. No psychosis. Sleep okay. Medication Compliance: Yes Side effects from medications: No Attending Groups: Intermittent Review of Systems Review of Systems Intermittent GI discomfort improving on bowel regimen Mental Status Exam Mental Status Exam Narrative: dressed in night gown and robe- Patient Appearance: Well Grooomed and Appropriate Patient Orientation: Person and Place (knows not at home) Level of Consciousness: Awake and Alert Patient Behavior: Cooperative, Distractible and Good Eye Contact Behavior Comments: Mood brighter superficially cheerful at times Mood Description: Calm ( good ) and Anxious Affect Description: Calm, Depressed ( getting less) and Apprehensive Patient Cognition Impaired: Yes Ability to Follow Directions: Fair Speech Pattern: Clear Memory Description: Episodic Impaired and Immediate Intact Diagnostics Vital Signs (24Hr): Vital Signs - 24 hr 04/07/25 20:16 04/08/25 08:07 Temperature 98.4 F Pulse Rate 82 Respiratory Rate 16 Blood Pressure 111/71 Pulse Oximetry 94 Oxygen Delivery Method Room Air Room Air BMI result Body Mass Index 35.1 Labs 03/10/25 07:41 Medications Medications Current Medications Acetaminophen (Acetaminophen 325 Mg Tablet) 650 mg PO Q6H PRN PRN Reason: Headache/Pain, Scale 1-10 Last Admin: 04/05/25 08:09 Dose: 650 mg Al Hydroxide/Mg Hydroxide (Magnesium Hydrox/Alum Hydrox 30 Ml Oral.Susp) 30 ml PO Q6H PRN PRN Reason: Heartburn/Nausea Last Admin: 04/07/25 10:36 Dose: 30 ml Amlodipine Besylate (Amlodipine Besylate 5 Mg Tablet) 5 mg PO DAILY [facility]; Protocol Last Admin: 04/08/25 08:10 Dose: 5 mg Ascorbic Acid (Ascorbic Acid 500 Mg Tablet) 500 mg PO DAILY [facility] Last Admin: 04/08/25 08:10 Dose: 500 mg Buspirone HCl (Buspirone Hcl 5 Mg Tablet) 15 mg PO BID [facility] Last Admin: 04/08/25 08:10 Dose: 15 mg Clotrimazole (Clotrimazole 1 % Cream 15 Gm Tube) 1 appl TOPICAL BID [facility]; Protocol Last Admin: 04/08/25 08:11 Dose: 1 appl Dicyclomine HCl (Dicyclomine Hcl 10 Mg Capsule) 20 mg PO BID [facility] Last Admin: 04/08/25 08:10 Dose: 20 mg Donepezil HCl (Donepezil Hcl 5 Mg Tablet) 5 mg PO BEDTIME [facility] Last Admin: 04/07/25 20:18 Dose: 5 mg Guaifenesin (Guaifenesin 100 Mg/5 Ml 5 Ml Liquid) 5 ml PO Q4H PRN PRN Reason: Cough Last Admin: 04/07/25 17:29 Dose: 5 ml Hydroxyzine HCl (Hydroxyzine Hcl 25 Mg Tablet) 25 mg PO Q6H PRN PRN Reason: mild anxiety Last Admin: 03/20/25 20:56 Dose: 25 mg Loratadine (Loratadine 10 Mg Tablet) 10 mg PO DAILY [facility] Last Admin: 04/08/25 08:10 Dose: 10 mg Magnesium Hydroxide (Milk Of Magnesia 30 Ml Oral.Susp) 30 ml PO DAILY PRN PRN Reason: Constipation Melatonin (Melatonin 3 Mg Tablet) 6 mg PO BEDTIME [facility] Last Admin: 04/07/25 20:18 Dose: 6 mg Memantine (Memantine Hcl 5 Mg Tablet) 5 mg PO BID [facility] Last Admin: 04/08/25 08:10 Dose: 5 mg Mirtazapine (Mirtazapine 7.5 Mg Tablet) 7.5 mg PO BEDTIME [facility] Last Admin: 04/07/25 20:18 Dose: 7.5 mg Nicotine Polacrilex (Nicotine Polacrilex 2 Mg Gum) 2 mg BUCCAL Q2H PRN PRN Reason: Nicotine Cravings Omeprazole (Omeprazole 20 Mg Capsule.Dr) 20 mg PO DAILY [facility] Last Admin: 04/08/25 08:10 Dose: 20 mg Propranolol HCl (Propranolol Hcl La 60 Mg Cap.Sa.24h) 60 mg PO DAILY [facility]; Protocol Last Admin: 04/08/25 08:10 Dose: 60 mg Risperidone (Risperidone 0.5 Mg Tablet) 0.5 mg PO BID PRN PRN Reason: agitation Risperidone (Risperidone 1 Mg Tablet) 1 mg PO BID [facility] Last Admin: 04/08/25 08:11 Dose: 1 mg Simethicone (Simethicone 80 Mg Tab.Chew) 80 mg PO TIDWM [facility] Last Admin: 04/08/25 08:11 Dose: 80 mg Trazodone HCl (Trazodone Hcl 50 Mg Tablet) 50 mg PO BEDTIME MRX1 PRN PRN Reason: Insomnia Last Admin: 03/27/25 20:42 Dose: 50 mg Zinc Sulfate (Zinc Sulfate 220 Mg Capsule) 220 mg PO DAILY [facility] Last Admin: 04/08/25 08:10 Dose: 220 mg Allergies Allergies Allergy/AdvReac Type Severity Reaction Status Date / Time Sulfa (Sulfonamide Allergy Severe Rash Verified 03/09/25 20:52 Antibiotics) Assessment & Plan Assessment & Plan (1) Alzheimer's dementia: Qualifiers: Alzheimer's disease onset: unspecified onset Dementia behavioral or psychological symptom: with anxiety Dementia severity: unspecified severity Qualified Code(s): G30.9 - Alzheimer's disease, unspecified; F02.84 - Dementia in other diseases classified elsewhere, unspecified severity, with anxiety Status: Acute Code(s): G30.9 - Alzheimer's disease, unspecified; F02.80 - Dementia in other diseases classified elsewhere, unspecified severity, without behavioral disturbance, psychotic disturbance, mood disturbance, and anxiety Assessment and Plan: cont memantine unclear discharge plan Plan HPI: This is the first reported psychiatric admission for this 74 year old [id number] female from [place], [place]. Patient was transferred from [facility] ED. Information was obtained from patient who isn't a reliable judicial reporter due to her cognitive limitations and noted confabulation and the ED psychiatric consultation records from [facility]. Patient has a diagnosis of dementia since 2017. She reportedly left the home in [place] and drove to [place] and then back to [place]. In [place] she parked at a fire station and told 2 men there she was lost and told them her BF was stealing money from her. They called the police and patient was taken to the ED. PLAN: - Admit to inpatient psychiatry - CV - Collateral information from family and providers. - Milieu treatment and group therapy. - Medications: Continue OP regimen. - Social work evaluation. - Disposition planning. Hypertension Blood pressure has improved since arrival Patient will continue her amlodipine 5 mg daily Low-sodium diet Monitor blood pressure at least daily Tachycardia EKG requested, Sinus TACH 103, possible left atrial enlargement, Qtc 434 Suspect tachycardia secondary to patient's anxiety level Patient likely did not receive her propranolol per nursing at [facility], will order a 1 time dose of 40 mgs tonight Patient normally on propranolol 60 mg daily Patient is afebrile, no leukocytosis, UA negative at [facility] Added BNP to AM labs, if elevated, may require echo Stomach cramps Continue Bentyl, chronic in presentation Patient follows with a specialist in the outpatient setting. Hospitalist consult placed today 03/12/25. Continue bowel regimen Monitor for constipation GERD Continue omeprazole Obesity Patient has made efforts to lose weight by not eating bagels or sugar Nutritional consult as needed 03/11: continue current management and treatment plan. 03/12/25: Slept well and have no issue with appetite. Focused on wanting to go home. She does not want to be here folate 30 days. Reviewed with patient criteria to get home, but need to be stabilized. Denies safety concerns, anxious but visible and pleasant upon approach. She is forgetful. 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 Also start on Memantine 5 mg daily for dementia Alzheimer. Continue with risperidone 0.5 b.i.d. p.r.n. agitation. 03/13/25: Doing well with medication changes and new Menantine. Slept through the night, was medication compliant, less focused on going home today. Feeling lonely , some anxiety but not depression I want to live . Denies safety concerns. Mcdonough done today scored Mcdonough 9/30. Indicating severe cognitive impairment with deficits in all domains except language. She also scored a 4.2 on the ACLS indicate moderate functional deficits and the need for 38% cognitive assistance for problem solving, safety and ADLs/ADLs completion and consistency. She was the same outfit as yesterday. Continue complain about stomach pain, on the right side. Denies trouble voiding. No burning sensation. Simethicone 80 mg q.i.d. HS with meal as needed for gas or heartburn. Hospitalist was notified that she has a consult order in. 03/14/2025 Patient anxious and dysphoric has been on memantine BuSpar Risperdal. Hospitalist service saw the patient for abdominal pain did not feel need for further workup at this time. Seems to be tolerating medication patient does states she hopes to live with a cousin if she is not able to live with her partner. 03/15/25: Reports trouble falling asleep, but has been eating okay. Denies side effects from medications. Observed visible on the unit, attended groups, no angry moments, feeling anxious. Denies safety concerns I never want to . I love my life . Reports the boyfriend will come visit her bringing her more clothes this week. Perseverative on abdominal pain which she knows that is the chronic issues. Confirmed with her that she does not need antibiotic per hospitalist who saw her the day before. She thinks that she needs to be on antibiotic as she did the research in the past with the recommendation that she should be on antibiotic. Denies other safety concerns. Melatonin 6 mg at bedtime for sleep (reported that she takes 5 mg [id number] at home) 03/16/25 Pt with unrealistic expectations cont melatonin buspar can in [place] target mood behavior cognition consider rlower risp 03/17/25 CTP 03/18/25 ongoing confusion, mostly pleasant perseverative on abd pain- CTP 03/19/25 can inc [place] work with partner regarding return home vs placement 03/20/25 working on safe d/c planning partner feels unable to manage cont risp [place] risperadol coord with family 03/21/2025 Continue plan of care discharge planning PT consult continue Risperdal 03/22/2025 Patient with some periods of anxiety irritability not combative. Discharge planning between patient's son and her partner who is healthcare proxy 03/23/2025 Patient more easily brightening not aggressive. Has difficulty understanding current situation Continue current medication no adverse effects noted. Discharged and healthcare proxy and family 03/24: continue current management and treatment plan. 03/25: continue current management and treatment plan. 03/27/25 start aricept 5 hs hold pulse less than 55 consider mirtazapine inc anxiety irritability discharge planning 03/29/2025 Discharge planning continues monitor response to mirtazapine continue memantine 03/30/2025 Continue di scharge planning continue mirtazapine [place] Aricept 03/31 continue treatment plan 04/01 CTP 04/02/2025 Continue discharge planning no less restrictive setting at this time continue [place] Aricept Risperdal 820/2025 Patient continues to tolerate treatment no adverse effects low-dose Risperdal mirtazapine [place]. Has not shown paranoia recently not overly aggressive looking at ways for safe discharge 04/08/25: No changes Reason for continued inpatient stay Substantial Risk for: rapid decompensation Time Spent With Patient Time: Total time managing care of this patient today ____ minutes.
[2025-04-08] MEDS: guaiFENesin 100 MG/5 ML 5 ML LIQUID PO ×2 (11:26→15:26)
[2025-04-08] MEDS: Magnesium Hydrox/Alum Hydrox 30 ML ORAL.SUSP PO (13:07)
[2025-04-08 20:00] VITALS: BP 132/63; PULSE 58; RESP 16; TEMP 36.4; O2SAT 95
[2025-04-09 08:58] VITALS: BP 129/68; PULSE 72; RESP 18; TEMP 36.6; O2SAT 95
[2025-04-09] MEDS: Propranolol HCL LA 60 MG CAP.SA.24H PO (09:01)
[2025-04-09] MEDS: guaiFENesin 100 MG/5 ML 5 ML LIQUID PO (09:33)
[2025-04-09 20:00] VITALS: BP 123/61; PULSE 78; TEMP 36.9; O2SAT 95
[2025-04-10 08:40] VITALS: BP 109/58; PULSE 72; RESP 18; TEMP 35.8; O2SAT 96
[2025-04-10] MEDS: Propranolol HCL LA 60 MG CAP.SA.24H PO (08:44)
[2025-04-10] MEDS: guaiFENesin 100 MG/5 ML 5 ML LIQUID PO (09:00)
[2025-04-10 11:07] LABS: MANUAL DIFF FLAG NO
[2025-04-10 11:11] LABS: Hematocrit 37.6 % (37.0-47.0); Hemoglobin 12.6 g/dl (12.0-16.0); Imm Gran Abs Auto 0.04 X10*3/uL (0.00-0.03); Imm Gran Pct Auto 0.4 % (0.0-0.4); Lymphocytes Absolute Auto 2.2 X10*3/uL (1.2-4.9); Mean Corpuscular HGB Conc 33.5 g/dl (31.0-35.0); Mean Corpuscular Hemoglobin 29.4 pg (27.0-33.0); Mean Corpuscular Volume 87.6 fL (80.0-98.0); NRBC Abs Auto 0.000 X10*3/uL (0.0-0.012); NRBC Pct Auto 0.0 /100WBC (0.0-0.2); Platelet Count 258 X10*3/uL (160-400); Red Blood Count 4.29 X10*6/uL (4.20-5.50); White Blood Count 10.2 X10*3/uL (4.8-10.8)
[2025-04-10 11:18] LABS: D Dimer High Sensitivity 383 NG/ML
--- NOTE | 2025-04-10 13:28 | PM.EVENT ---
Event Note Date of Service: 04/10/25 Event Note: Patient complaining of nonproductive cough, runny nose, denies shortness of breath. Minimal wheeze on exam, would continue with p.r.n. albuterol, Claritin and add intranasal steroids Time Spent With Patient Time: Total time managing care of this patient today ____ minutes.
--- NOTE | 2025-04-10 14:20 | HO.PSYCHPN ---
Subjective Subjective Date of Service: 04/09/25 Reason For Visit: Unspecified psychosis Dementia w/ behavioral distu Subjective Notes: Conditional Voluntary Healthcare Proxy: Yes Interim History: Patient seen in psychiatric follow-up. Patient afebrile but does continue to have a cough. Pulse ox remains adequate patient social on the unit. She realizes she will be living with her son in understands that she needs this house because of her memory disorder Medication Compliance: Yes Mental Status Exam Mental Status Exam Narrative: dressed in night gown and robe- Patient Appearance: Well Grooomed and Appropriate Patient Orientation: Person and Place (knows not at home) Level of Consciousness: Awake and Alert Patient Behavior: Cooperative, Distractible and Good Eye Contact Behavior Comments: Mood brighter superficially cheerful at times Mood Description: Calm ( good ) and Anxious Affect Description: Calm and Depressed ( getting less) Patient Cognition Impaired: Yes Ability to Follow Directions: Fair Speech Pattern: Clear Memory Description: Episodic Impaired, Recent Impaired and Immediate Intact Hallucinations: None Delusions: Not Present Judgement and Insight: Patient aware that she has cognitive impairment more accepting of help understanding about placement at least when seen Diagnostics Vital Signs (24Hr): Vital Signs - 24 hr 04/09/25 20:00 04/10/25 08:40 Temperature 98.5 F 96.4 F L Pulse Rate 78 72 Respiratory Rate 18 Blood Pressure 123/61 109/58 L Pulse Oximetry 95 96 Oxygen Delivery Method Room Air Room Air BMI result Body Mass Index 35.1 Labs 04/10/25 11:00 03/10/25 07:41 Labs: Laboratory Results - last 48 hr 04/10/25 11:00 WBC 10.2 RBC 4.29 Hgb 12.6 Hct 37.6 MCV 87.6 MCH 29.4 MCHC 33.5 RDW 12.9 Plt Count 258 MPV 10.2 Immature Gran % (Auto) 0.4 Neut % (Auto) 66.1 Lymph % (Auto) 21.5 [place] % (Auto) 10.5 Eos % (Auto) 1.0 Baso % (Auto) 0.5 Lymph # (Auto) 2.2 [place] # (Auto) 1.1 Eos # (Auto) 0.1 Baso # (Auto) 0.1 Abs Immat Gran (auto) 0.04 H Absolute Neuts (auto) 6.8 Absolute Nucleated RBC 0.000 Nucleated RBC % (auto) 0.0 D-Dimer High Sensitivty 383 Imaging Radiology Impressions: ITS Impressions Chest X-Ray 04/10/25 10:45 IMPRESSION: No active pulmonary disease. Electronically signed by: Shadi Gu MD 04/10/2025 11:00 AM EDT RP Medications Medications Current Medications Acetaminophen (Acetaminophen 325 Mg Tablet) 650 mg PO Q6H PRN PRN Reason: Headache/Pain, Scale 1-10 Last Admin: 04/10/25 09:00 Dose: 650 mg Al Hydroxide/Mg Hydroxide (Magnesium Hydrox/Alum Hydrox 30 Ml Oral.Susp) 30 ml PO Q6H PRN PRN Reason: Heartburn/Nausea Last Admin: 04/08/25 13:07 Dose: 30 ml Albuterol Sulfate (Albuterol Sulfate 90 Mcg 8 Gm Inhaler) 2 puff INHALE RQ4H PRN PRN Reason: Shortness of Breath/Wheezing Amlodipine Besylate (Amlodipine Besylate 5 Mg Tablet) 5 mg PO DAILY [facility]; Protocol Last Admin: 04/10/25 08:45 Dose: 5 mg Ascorbic Acid (Ascorbic Acid 500 Mg Tablet) 500 mg PO DAILY [facility] Last Admin: 04/10/25 08:43 Dose: 500 mg Buspirone HCl (Buspirone Hcl 5 Mg Tablet) 15 mg PO BID [facility] Last Admin: 04/10/25 08:42 Dose: 15 mg Clotrimazole (Clotrimazole 1 % Cream 15 Gm Tube) 1 appl TOPICAL BID [facility]; Protocol Last Admin: 04/10/25 08:46 Dose: Not Given Dicyclomine HCl (Dicyclomine Hcl 10 Mg Capsule) 20 mg PO BID [facility] Last Admin: 04/10/25 08:44 Dose: 20 mg Donepezil HCl (Donepezil Hcl 5 Mg Tablet) 5 mg PO BEDTIME [facility] Last Admin: 04/09/25 20:40 Dose: 5 mg Fluticasone Propionate (Fluticasone Propionate Nasal 16 Gm [place]) 1 spray NOSTRIL-B BID [facility] Guaifenesin (Guaifenesin 100 Mg/5 Ml 5 Ml Liquid) 5 ml PO Q4H PRN PRN Reason: Cough Last Admin: 04/10/25 09:00 Dose: 5 ml Guaifenesin (Guaifenesin 100 Mg/5 Ml 5 Ml Liquid) 5 ml PO Q4H PRN PRN Reason: Cough Hydroxyzine HCl (Hydroxyzine Hcl 25 Mg Tablet) 25 mg PO Q6H PRN PRN Reason: mild anxiety Last Admin: 04/08/25 13:06 Dose: 25 mg Loratadine (Loratadine 10 Mg Tablet) 10 mg PO DAILY [facility] Last Admin: 04/10/25 08:44 Dose: 10 mg Magnesium Hydroxide (Milk Of Magnesia 30 Ml Oral.Susp) 30 ml PO DAILY PRN PRN Reason: Constipation Melatonin (Melatonin 3 Mg Tablet) 6 mg PO BEDTIME [facility] Last Admin: 04/09/25 20:40 Dose: 6 mg Memantine (Memantine Hcl 5 Mg Tablet) 5 mg PO BID [facility] Last Admin: 04/10/25 08:43 Dose: 5 mg Mirtazapine (Mirtazapine 7.5 Mg Tablet) 7.5 mg PO BEDTIME [facility] Last Admin: 04/09/25 20:39 Dose: 7.5 mg Nicotine Polacrilex (Nicotine Polacrilex 2 Mg Gum) 2 mg BUCCAL Q2H PRN PRN Reason: Nicotine Cravings Omeprazole (Omeprazole 20 Mg Capsule.Dr) 20 mg PO DAILY [facility] Last Admin: 04/10/25 08:44 Dose: 20 mg Propranolol HCl (Propranolol Hcl La 60 Mg Cap.Sa.24h) 60 mg PO DAILY [facility]; Protocol Last Admin: 04/10/25 08:44 Dose: 60 mg Risperidone (Risperidone 0.5 Mg Tablet) 0.5 mg PO BID PRN PRN Reason: agitation Risperidone (Risperidone 1 Mg Tablet) 1 mg PO BID [facility] Last Admin: 04/10/25 08:45 Dose: 1 mg Simethicone (Simethicone 80 Mg Tab.Chew) 80 mg PO TIDWM [facility] Last Admin: 04/10/25 12:03 Dose: 80 mg Trazodone HCl (Trazodone Hcl 50 Mg Tablet) 50 mg PO BEDTIME MRX1 PRN PRN Reason: Insomnia Last Admin: 03/27/25 20:42 Dose: 50 mg Zinc Sulfate (Zinc Sulfate 220 Mg Capsule) 220 mg PO DAILY [facility] Last Admin: 04/10/25 08:43 Dose: 220 mg Allergies Allergies Allergy/AdvReac Type Severity Reaction Status Date / Time Sulfa (Sulfonamide Allergy Severe Rash Verified 03/09/25 20:52 Antibiotics) Assessment & Plan Assessment & Plan (1) Alzheimer's dementia: Qualifiers: Alzheimer's disease onset: unspecified onset Dementia behavioral or psychological symptom: with anxiety Dementia severity: unspecified severity Qualified Code(s): G30.9 - Alzheimer's disease, unspecified; F02.84 - Dementia in other diseases classified elsewhere, unspecified severity, with anxiety Status: Acute Code(s): G30.9 - Alzheimer's disease, unspecified; F02.80 - Dementia in other diseases classified elsewhere, unspecified severity, without behavioral disturbance, psychotic disturbance, mood disturbance, and anxiety Assessment and Plan: cont memantine Aricept 5 mg patient on beta-arnulfo trying to keep dose low secondary to interaction Plan HPI: This is the first reported psychiatric admission for this 74 year old [id number] female from [place], [place]. Patient was transferred from [facility] ED. 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 Patient has a diagnosis of dementia since 2017. She reportedly left the home in [place] and [place] to [place] and then back to [place]. In [place] she parked at a fire station and told 2 men there she was lost and told them her BF was stealing money from her. They called the police and patient was taken to the ED. PLAN: - Admit to inpatient psychiatry - CV - Collateral information from family and providers. - Milieu treatment and group therapy. - Medications: Continue OP regimen. - Social work evaluation. - Disposition planning. Hypertension Blood pressure has improved since arrival Patient will continue her amlodipine 5 mg daily Low-sodium diet Monitor blood pressure at least daily Tachycardia EKG requested, Sinus TACH 103, possible left atrial enlargement, Qtc 434 Suspect tachycardia secondary to patient's anxiety level Patient likely did not receive her propranolol per nursing at [facility], will order a 1 time dose of 40 mgs tonight Patient normally on propranolol 60 mg daily Patient is afebrile, no leukocytosis, UA negative at [place] Added BNP to AM labs, if elevated, may require echo Stomach cramps Continue Bentyl, chronic in presentation Patient follows with a specialist in the outpatient setting. Hospitalist consult placed today 03/12/25. Continue bowel regimen Monitor for constipation GERD Continue omeprazole Obesity Patient has made efforts to lose weight by not eating bagels or sugar Nutritional consult as needed 03/11: continue current management and treatment plan. 03/12/25: Slept well and have no issue with appetite. Focused on wanting to go home. She does not want to be here folate 30 days. Reviewed with patient criteria to get home, but need to be stabilized. Denies safety concerns, anxious but visible and pleasant upon approach. She is forgetful. 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 Also start on Memantine 5 mg daily for dementia Alzheimer. Continue with risperidone 0.5 b.i.d. p.r.n. agitation. 03/13/25: Doing well with medication changes and new Menantine. Slept through the night, was medication compliant, less focused on going home today. Feeling lonely , some anxiety but not depression I want to live . Denies safety concerns. Crisp done today scored Crisp 9/30. Indicating severe cognitive impairment with deficits in all domains except language. She also scored a 4.2 on the ACLS indicate moderate functional deficits and the need for 38% cognitive assistance for problem solving, safety and ADLs/ADLs completion and consistency. She was the same outfit as yesterday. Continue complain about stomach pain, on the right side. Denies trouble voiding. No burning sensation. Simethicone 80 mg q.i.d. HS with meal as needed for gas or heartburn. Hospitalist was notified that she has a consult order in. 03/14/2025 Patient anxious and dysphoric has been on memantine BuSpar Risperdal. Hospitalist service saw the patient for abdominal pain did not feel need for further workup at this time. Seems to be tolerating medication patient does states she hopes to live with a cousin if she is not able to live with her partner. 03/15/25: Reports trouble falling asleep, but has been eating okay. Denies side effects from medications. Observed visible on the unit, attended groups, no angry moments, feeling anxious. Denies safety concerns I never want to . I love my life . Reports the boyfriend will come visit her bringing her more clothes this week. Perseverative on abdominal pain which she knows that is the chronic issues. Confirmed with her that she does not need antibiotic per hospitalist who saw her the day before. She thinks that she needs to be on antibiotic as she did the research in the past with the recommendation that she should be on antibiotic. Denies other safety concerns. Melatonin 6 mg at bedtime for sleep (reported that she takes 5 mg [id number] at home) 03/16/25 Pt with unrealistic expectations cont melatonin buspar can in [place] target mood behavior cognition consider rlower risp 03/17/25 CTP 03/18/25 ongoing confusion, mostly pleasant perseverative on abd pain- CTP 03/19/25 can inc [place] work with partner regarding return home vs placement 03/20/25 working on safe d/c planning partner feels unable to manage cont risp [place] risperadol coord with family 03/21/2025 Continue plan of care discharge planning PT consult continue Risperdal 03/22/2025 Patient with some periods of anxiety irritability not combative. Discharge planning between patient's son and her partner who is healthcare proxy 03/23/2025 Patient more easily brightening not aggressive. Has difficulty understanding current situation Continue current medication no adverse effects noted. Discharged and healthcare proxy and family 03/24: continue current management and treatment plan. 03/25: continue current management and treatment plan. 03/27/25 start aricept 5 hs hold pulse less than 55 consider mirtazapine inc anxiety irritability discharge planning 03/29/2025 Discharge planning continues monitor response to mirtazapine continue memantine 03/30/2025 Continue di scharge planning continue mirtazapine [place] Aricept 03/31 continue treatment plan 04/01 CTP 04/02/2025 Continue discharge planning no less restrictive setting at this time continue [place] Aricept Risperdal 820/2024 Patient continues to tolerate treatment no adverse effects low-dose Risperdal mirtazapine [place]. Has not shown paranoia recently not overly aggressive looking at ways for safe discharge 04/09/2025 Continue [place] low-dose Aricept given that she is on a beta-arnulfo behavior adequate some anxiety and dysphoria cautious without fever Patient educated on: diagnosis Informed Consent: further education needed Reason for continued inpatient stay Substantial Risk for: inability to function and rapid decompensation Time Spent With Patient Time: Total time managing care of this patient today ____ minutes.
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
[2025-04-10] MEDS: Albuterol Sulfate 90 MCG 8 GM INHALER 2 PUFF INHALE (15:07)
--- NOTE | 2025-04-10 15:08 | PC.NURSE ---
Dull expiratory wheezes all lobes, Ventolin Inhaler 2 puffs given at 1509.
[2025-04-10 19:54] VITALS: BP 118/65; PULSE 68; RESP 17; TEMP 36.8; O2SAT 93
[2025-04-11 08:00] VITALS: BP 181/65; PULSE 62; RESP 16; TEMP 36.1; O2SAT 96
[2025-04-11 08:50] VITALS: BP 181/65
[2025-04-11] MEDS: Propranolol HCL LA 60 MG CAP.SA.24H PO (08:50)
[2025-04-11 19:27] VITALS: BP 93/57; PULSE 63; RESP 16; TEMP 36.2; O2SAT 94
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
[2025-04-12 07:00] VITALS: BMI 35.2
[2025-04-12 08:00] VITALS: BP 125/64; PULSE 61; RESP 16; O2SAT 95
[2025-04-12] MEDS: Propranolol HCL LA 60 MG CAP.SA.24H PO (08:41)
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
[2025-04-12] MEDS: guaiFENesin 100 MG/5 ML 5 ML LIQUID PO (12:05)
[2025-04-12 20:00] VITALS: BP 156/74; PULSE 64; RESP 16; TEMP 36.5; O2SAT 97
[2025-04-12] MEDS: Albuterol Sulfate 90 MCG 8 GM INHALER 2 PUFF INHALE (23:09)
[2025-04-13 08:15] VITALS: BP 144/75; PULSE 68; RESP 16; TEMP 36.4; O2SAT 95
[2025-04-13] MEDS: Clotrimazole 1 % Cream 15 GM TUBE 1 APPL TOPICAL (08:55)
[2025-04-13] MEDS: Propranolol HCL LA 60 MG CAP.SA.24H PO (08:57)
--- NOTE | 2025-04-13 10:55 | P.DS_ITS ---
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 mg q.i.d. HS with meal as needed for gas or heartburn. Hospitalist was notified that she has a consult order in. 03/14/2025 Patient anxious and dysphoric has been on memantine BuSpar Risperdal. Hospitalist service saw the patient for abdominal pain did not feel need for further workup at this time. Seems to be tolerating medication patient does states she hopes to live with a cousin if she is not able to live with her partner. 03/15/25: Reports trouble falling asleep, but has been eating okay. Denies side effects from medications. Observed visible on the unit, attended groups, no angry moments, feeling anxious. Denies safety concerns I never want to . I love my life . Reports the boyfriend will come visit her bringing her more clothes this week. Perseverative on abdominal pain which she knows that is the chronic issues. Confirmed with her that she does not need antibiotic per hospitalist who saw her the day before. She thinks that she needs to be on antibiotic as she did the research in the past with the recommendation that she should be on antibiotic. Denies other safety concerns. Melatonin 6 mg at bedtime for sleep (reported that she takes 5 mg [id number] at home) 03/16/25 Pt with unrealistic expectations cont melatonin buspar can in namenda target mood behavior cognition consider rlower risp 03/17/25 CTP 03/18/25 ongoing confusion, mostly pleasant perseverative on abd pain- CTP 03/19/25 can inc namenda work with partner regarding return home vs placement 03/20/25 working on safe d/c planning partner feels unable to manage cont risp namenda risperadol coord with family 03/21/2025 Continue plan of care discharge planning PT consult continue Risperdal 03/22/2025 Patient with some periods of anxiety irritability not combative. Discharge planning between patient's son and her partner who is healthcare proxy 03/23/2025 Patient more easily brightening not aggressive. Has difficulty understanding current situation Continue current medication no adverse effects noted. Discharged and healthcare proxy and family 03/24: continue current management and treatment plan. 03/25: continue current management and treatment plan. 03/27/25 start aricept 5 hs hold pulse less than 55 consider mirtazapine inc anxiety irritability discharge planning 03/29/2025 Discharge planning continues monitor response to mirtazapine continue memantine 03/30/2025 Continue di scharge planning continue mirtazapine Namenda Aricept 03/31 continue treatment plan 04/01 CTP 04/02/2025 Continue discharge planning no less restrictive setting at this time continue Namenda Aricept Risperdal 82 Patient continues to tolerate treatment no adverse effects low-dose Risperdal mirtazapine Namenda. Has not shown paranoia recently not overly aggressive looking at ways for safe discharge 04/09/2025 Continue Namenda low-dose Aricept given that she is on a beta-arnulfo behavior adequate some anxiety and dysphoria cautious without fever 04/10/25 cont d/c planning mild cold sx 04/12/25 Inhaler helpful pts anxiety dysphoria improved aware of d/c plan for 04/13/25 afebrile no inc wbc pulse ox ok The patient was admitted to the senior psychiatry Geriatric unit the context increasing irritability aggression at home secondary dementia. We did meet with the patient's healthcare proxy who was her longstanding partner did sign a conditional voluntary. The patient's Risperdal was increased to twice a day the patient had a great deal difficulty processing information and understanding that she would no longer be able to go back to whom she had been living in secondary to her behavior and dementia. She was on Namenda to 5 mg b.i.d. for behavioral difficulties with Alzheimer dementia and Aricept 5 mg bedtime. This was not increased because the patient was beta-arnulof because of potential drug interaction. Pt after much work was able to be successfully discharged to her son and [id number] as house with services multiple family meetings held discharge for educational and planning meetings 03/12/25: Slept well and have no issue with appetite. Focused on wanting to go home. She does not want to be here folate 30 days. Reviewed with patient criteria to get home, but need to be stabilized. Denies safety concerns, anxious but visible and pleasant upon approach. She is forgetful. 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 Also start on Memantine 5 mg daily for dementia Alzheimer. Continue with risperidone 0.5 b.i.d. p.r.n. agitation. 03/13/25: Doing well with medication changes and new Menantine. Slept through the night, was medication compliant, less focused on going home today. Feeling lonely , some anxiety but not depression I want to live . Denies safety concerns. Glasscock done today scored Glasscock 9/30. Indicating severe cognitive impairment with deficits in all domains except language. She also scored a 4.2 on the ACLS indicate moderate functional deficits and the need for 38% cognitive assistance for problem solving, safety and ADLs/ADLs completion and consistency. She was the same outfit as yesterday. Continue complain about stomach pain, on the right side. Denies trouble voiding. No burning sensation. Simethicone 80 mg q.i.d. HS with meal as needed for gas or heartburn. Hospitalist was notified that she has a consult order in. 03/14/2025 Patient anxious and dysphoric has been on memantine BuSpar Risperdal. Hospitalist service saw the patient for abdominal pain did not feel need for further workup at this time. Seems to be tolerating medication patient does states she hopes to live with a cousin if she is not able to live with her partner. 03/15/25: Reports trouble falling asleep, but has been eating okay. Denies side effects from medications. Observed visible on the unit, attended groups, no angry moments, feeling anxious. Denies safety concerns I never want to . I love my life . Reports the boyfriend will come visit her bringing her more clothes this week. Perseverative on abdominal pain which she knows that is the chronic issues. Confirmed with her that she does not need antibiotic per hospitalist who saw her the day before. She thinks that she needs to be on antibiotic as she did the research in the past with the recommendation that she should be on antibiotic. Denies other safety concerns. Melatonin 6 mg at bedtime for sleep (reported that she takes 5 mg [id number] at home) 03/16/25 Pt with unrealistic expectations cont melatonin buspar can in namenda target mood behavior cognition consider rlower risp 03/17/25 CTP 03/18/25 ongoing confusion, mostly pleasant perseverative on abd pain- CTP 03/19/25 can inc namenda work with partner regarding return home vs placement 03/20/25 working on safe d/c planning partner feels unable to manage cont risp namenda risperadol coord with family 03/21/2025 Continue plan of care discharge planning PT consult continue Risperdal 03/22/2025 Patient with some periods of anxiety irritability not combative. Discharge planning between patient's son and her partner who is healthcare proxy 03/23/2025 Patient more easily brightening not aggressive. Has difficulty understanding current situation Continue current medication no adverse effects noted. Discharged and healthcare proxy and family 03/24: continue current management and treatment plan. 03/25: continue current management and treatment plan. 03/27/25 start aricept 5 hs hold pulse less than 55 consider mirtazapine inc anxiety irritability discharge planning 03/29/2025 Discharge planning continues monitor response to mirtazapine continue memantine 03/30/2025 Continue di scharge planning continue mirtazapine Namenda Aricept 03/31 continue treatment plan 04/01 CTP 04/02/2025 Continue discharge planning no less restrictive setting at this time continue Namenda Aricept Risperdal 82 Patient continues to tolerate treatment no adverse effects low-dose Risperdal mirtazapine Namenda. Has not shown paranoia recently not overly aggressive look ing at ways for safe discharge 04/09/2025 Continue Namenda low-dose Aricept given that she is on a beta-arnulfo behavior adequate some anxiety and dysphoria cautious without fever 04/10/25 cont d/c planning mild cold sx 04/12/25 Inhaler helpful pts anxiety dysphoria improved aware of d/c plan for 04/13/25 04/13/25 Patient aware discharge some sadness about not returning to apartment that she has been living with her son. Mood stable not overly depressed or agitated future focused has been social in the milieu generally no current behavioral difficulty Status at Discharge Functional status at discharge: independent ambulation Time Spent with Patient Time attestation: Total time managing care of this patient today 40____ minutes. Time spent: Greater than 30 minutes Discharge Plan Discharge Anticipated Discharge Date/Time: 04/13/25 15:05 Patient Disposition: Home, Self-Care Discharge Diagnosis: alzheimer dementia with behavioral problems hypertension hyperlipedemia Referrals: [facility] [Other] - 1 Week Referral Note: Request was made for a follow up psychiatry appointment. The office will follow up with you. [facility] - [facility] Referral Note: Your [facility] casework manager will follow up after discharge to work with you and your family on homecare and adult day health services. Verenice Smith MD [Primary Care Provider, Geriatrics] - 1 Week Referral Note: A request for an appointment was made, the office will follow up with you directly. Discharge Medications: New loratadine 10 mg Tablet 10 mg PO DAILY 30 Days Qty: 30 0RF albuterol sulfate [Ventolin HFA] 90 mcg/actuation HFA aerosol inhaler 2 puff inhalation Q6H PRN (Reason: shortness of breath or wheezing) 30 Days Qty: 8.5 1RF risperidone 1 mg Tablet 1 mg PO BID 30 Days Qty: 60 0RF buspirone 15 mg tablet 15 mg PO BID 30 Days Qty: 60 1RF memantine 5 mg Tablet 5 mg PO BID 30 Days Qty: 60 0RF mirtazapine 7.5 mg Tablet 7.5 mg PO BEDTIME 30 Days Qty: 30 0RF trazodone 50 mg Tablet 50 mg PO BEDTIME MRX1 PRN (Reason: Insomnia) 30 Days Qty: 60 1RF zinc sulfate [Zinc-220] 50 mg zinc (220 mg) Capsule 100 mg PO DAILY Qty: 30 1RF fluticasone propionate 44 mcg/actuation HFA aerosol inhaler 1 puff inhalation BID 30 Days Qty: 10.6 1RF Rx Instructions: administer with spacer simethicone 80 mg Tablet,Chewable 80 mg PO TIDWM 30 Days Qty: 90 1RF melatonin 3 mg Tablet 6 mg PO BEDTIME 30 Days Qty: 60 1RF ascorbic acid (vitamin C) [Vitamin C] 500 mg Tablet 500 mg PO DAILY 30 Days Qty: 30 1RF clotrimazole 1 % cream 1 appl topical BID 30 Days Qty: 30 0RF Continued propranolol 60 mg capsule,extended release 24 hr 60 mg PO DAILY 30 Days Qty: 30 1RF amlodipine 5 mg tablet 5 mg PO DAILY 30 Days Qty: 30 0RF dicyclomine 20 mg tablet 20 mg PO BID 30 Days Qty: 60 1RF omeprazole 20 mg capsule,delayed release(DR/EC) 20 mg PO DAILY 30 Days Qty: 30 1RF colestipol 1 gram tablet 1 g PO DAILY 30 Days Qty: 30 1RF Discontinued risperidone 0.5 mg tablet 0.5 mg PO BID buspirone 30 mg tablet 15 mg PO BID Discharge Orders: Discharge Order (Routine); Ordered 04/13/25 Ordered By: Demetri South Diet: Advance to usual diet Activity on Discharge: As tolerated Stand Alone Forms: Patient Portal Discharge page, Community Support Print Language: [place] Care Plan Goals: stabilize mood limit aggressive behavior maintain cognition as possible transition to supportive setting Health Concerns: alzheimer dementia hypertension Plan of Treatment: supportive care buspar/mirtazapine for depression anxiety risperadol for agitation this probably can be tapered namenda aricept for behavior and cognition Assessment: calm pleasant future oriented
== END 2025-04-13 16:20 | disposition home or self-care (01) | DRG 57 ==
PROVIDERS: Nurse Practitioner Family; Nurse Practitioner Psychiatric/Mental Health; Admitting Provider Psychiatry & Neurology Psychiatry; PCP Internal Medicine Geriatric Medicine; Visit Provider Psychiatry & Neurology Psychiatry
DX: G30.1 Alzheimer's disease with late onset (principal); F02.C3 Dementia in other diseases classified elsewhere, severe, with mood disturbance; J98.11 Atelectasis; F10.21 Alcohol dependence, in remission; I10 Essential (primary) hypertension; R00.0 Tachycardia, unspecified; K21.9 Gastro-esophageal reflux disease without esophagitis; E66.9 Obesity, unspecified; Z68.35 Body mass index [BMI] 35.0-35.9, adult; Z71.3 Dietary counseling and surveillance; R10.9 Unspecified abdominal pain; Z87.891 Personal history of nicotine dependence; Z79.899 Other long term (current) drug therapy
CPT/HCPCS: 36415; 71045; 80053; 80061; 81001; 83036; 83880; 84439; 84443; 85025; 85379; 93005; 97161; 99499

== ENCOUNTER 2025-03-09 17:41 | Outpatient (BNV) | payer MEDICARE, SELFPAY | END 2025-04-04 18:09 | PROVIDERS: Admitting Provider Psychiatry & Neurology Psychiatry; PCP Internal Medicine Geriatric Medicine; Visit Provider Radiology Diagnostic Radiology | DX: J98.11 Atelectasis (principal) | CPT/HCPCS: 71045 ==

== ENCOUNTER 2025-03-09 17:41 | Outpatient (BNV) | payer MEDICARE, SELFPAY | END 2025-04-10 10:45 | PROVIDERS: Admitting Provider Psychiatry & Neurology Psychiatry; PCP Internal Medicine Geriatric Medicine; Visit Provider Radiology Diagnostic Radiology | DX: R06.02 Shortness of breath (principal); R05.9 Cough, unspecified | CPT/HCPCS: 71045 ==

== ENCOUNTER 2025-03-09 17:41 | Outpatient (BNV) | payer MEDICARE, SELFPAY | END 2025-03-09 21:19 | PROVIDERS: Admitting Provider Psychiatry & Neurology Psychiatry; PCP Internal Medicine Geriatric Medicine; Visit Provider Internal Medicine Cardiovascular Disease | DX: I49.3 Ventricular premature depolarization (principal); R00.0 Tachycardia, unspecified | CPT/HCPCS: 93010 ==

== ENCOUNTER → 2025-03-09 17:41 | Outpatient (BNV) | payer OTHER, SELFPAY | PROVIDERS: Admitting Provider Psychiatry & Neurology Psychiatry; PCP Internal Medicine Geriatric Medicine; Visit Provider Psychiatry & Neurology Psychiatry | DX: G30.9 Alzheimer's disease, unspecified (principal); F02.84 Dementia in other diseases classified elsewhere, unspecified severity, with anxiety | CPT/HCPCS: 90792 ==

== ENCOUNTER → 2025-03-09 17:41 | Outpatient (BNV) | payer MEDICARE, SELFPAY | PROVIDERS: Admitting Provider Psychiatry & Neurology Psychiatry; PCP Internal Medicine Geriatric Medicine; Visit Provider Nurse Practitioner Family | DX: G30.9 Alzheimer's disease, unspecified (principal); F02.84 Dementia in other diseases classified elsewhere, unspecified severity, with anxiety | CPT/HCPCS: 99223; 99499 ==

== ENCOUNTER → 2025-03-09 17:41 | Outpatient (BNV) | payer MEDICARE, SELFPAY | PROVIDERS: Admitting Provider Psychiatry & Neurology Psychiatry; PCP Internal Medicine Geriatric Medicine; Visit Provider Psychiatry & Neurology Psychiatry | DX: G30.9 Alzheimer's disease, unspecified (principal); F02.84 Dementia in other diseases classified elsewhere, unspecified severity, with anxiety | CPT/HCPCS: 99232 ==